=== PATIENT | female | born 1935 | race Caucasian/White ===

== ENCOUNTER 2020-02-10 16:21 | Inpatient (IN) | payer MEDICARE, SELFPAY ==
[2020-02-10 16:49] VITALS: BP 102/47; PULSE 98; PULSE 99; RESP 16; TEMP 37.1; O2SAT 98; BMI 31.8
--- NOTE | 2020-02-10 21:42 | PCM.HP.STD ---
Problem List (1) Debility Status: Acute (2) Osteoarthritis of left hip Status: Chronic (3) Body mass index (bmi) 31.0-31.9, adult Status: Chronic (4) Hypertension Status: Chronic (5) Osteopenia Status: Chronic (6) Osteoarthritis Status: Chronic (7) Restless leg syndrome Status: Chronic (8) Hearing loss Status: Chronic (9) Hyperparathyroidism Status: Acute (10) Tobacco abuse Status: Acute History of Present Illness Date of Admission: 02/10/20 Chief Complaint: Here for rehabilitation, strengthening, prior to discharge home with son. 02/08/2020 The patient is a 84 year old Female with below past medical history admitted to [facility]. Left hip pain 7 out of 10, failed conservative treatments. 02/08/2020 Dr. Roldan performed left total hip replacement. Lovenox, sequential compression devices for DVT prophylaxis. Postoperative course uncomplicated. 02/10/2020 Admit to TCU with debility, here for rehabilitation, strengthening, prior to discharge home with son. Past Medical History Past Medical History (Chronic Problems): Chronic Problems Osteoarthritis of left hip (Chronic) Body mass index (bmi) 31.0-31.9, adult (Chronic) Hypertension (Chronic) Osteopenia (Chronic) Osteoarthritis (Chronic) Restless leg syndrome (Chronic) Hearing loss (Chronic) Allergies hydroxychloroquine [From Plaquenil] Allergy (Verified 02/10/20 18:43) NEEDS FOLLOW-UP Home Medications: Ambulatory Orders Medication Instructions Recorded Ascorbic Acid [Vitamin C] 500 mg PO DAILY@0800 02/10/20 Aspirin E.C. [Ecotrin] 81 mg PO DAILY@79902/10/20 Cholecalciferol (VIT D3) [Vitamin 1,000 unit PO DAILY 02/10/20 D] Hydrocodone/Acetaminophen 1 - 2 ea PO 4X/DAY PRN PRN 02/10/20 [Hydrocodon-Acetaminophen 5-325] Lisinopril [Zestril] 20 mg PO DAILY 02/10/20 Surgical History: hysterectomy, total hip arthroplasty - Left., total knee arthroplasty, tonsillectomy, - - Parathyroidectomy, Melanoma, Carpal tunnel release, Vaginectomy. Psychiatric History: No pertinent psych hx TECHNICAL SYSTEM ANALYST History: - - Vaginectomy. Lives: With Family - Son. Smoking Status: Current every day smoker Tobacco Use: Cigarettes Alcohol: None Drugs: None - *Family History Maternal History Items: No pertinent history Paternal History Items: No pertinent history Review of Systems Constitutional: Denies: Chills, Fever, Weight Change HEENT: Denies: Head Aches, Sinus Congestion, Sinus Drainage Cardiovascular: Denies: Chest Pain, Palpitations Respiratory: Denies: Cough, Shortness of breath at rest, Sputum production Gastrointestinal: Denies: Abdominal Pain, Nausea, Vomiting Genitourinary: Denies: Dysuria Musculoskeletal: Denies: Joint Pain, Joint Tenderness Skin: Denies: Rash, Wounds Neurological: Denies: Numbness, Tingling, Focal weakness Psychiatric: Denies: Anxiety, Depression, Homicidal Ideations, Suicidal Ideations Hematologic/ Lymphatic: Denies: Easy Bruising, Easy Bleeding VTE Information - Inpt Only VTE Present on Admission: No VTE Mechan Device Prophylaxis: Knee High KADE Hose VTE Pharm Prophylaxis ordered?: Yes Patient Problems: Active and Suspected Problems Debility (Acute) Hyperparathyroidism (Acute) Tobacco abuse (Acute) - Physical Exam Vitals/I&O's: Vital Signs Temp Pulse Resp BP Pulse Ox 98.7 F 98 16 102/47 L 98 02/10/20 16:49 02/10/20 16:49 02/10/20 16:49 02/10/20 16:49 02/10/20 16:49 Oxygen Delivery Method Room Air Weight: 76.374 kg Body Mass Index (BMI) 31.8 Intake and Output for Last 24 Hours 02/08/20 02/09/20 02/10/20 23:59 23:59 23:59 Intake Total 360 / 360 Balance 360 / 360 General: Alert, Oriented x3, Cooperative HEENT: Atraumatic, PERRLA, EOMI, Normocephalic Neck: Supple, No JVD, Negative Carotid Bruits Lungs: Clear to auscultation, Normal air movement Cardiovascular: Regular rate, No murmurs Abdomen: Bowel Sounds Present, Soft, Non Tender Extremities: No edema, Capillary Refill Less than 3 Seconds Skin: No rashes, No breakdown Musculoskeletal: No Tenderness to Palpation of Joints or Extremities Neurological: Cranial nerves II-XII grossly intact Psych/Mental Status: Normal Affect, Appropriate Laboratory Results 02/10/20 21:05: COVID-19 (IDA) Pending Current Medications Hydrocodone Bitart/Acetaminophen ([place] 5mg-325mg) 1 - 2 tablet PO Q6H PRN PRN PRN Reason: Pain Score 4-10/10 Ascorbic Acid (Vitamin C) 500 mg PO DAILY@0800 [facility] Aspirin (Ecotrin) 81 mg PO DAILY@0800 [facility] Bisacodyl (Dulcolax) 10 mg PO DAILY PRN PRN Reason: Constipation Cholecalciferol (Vitamin D (25mcg)) 1,000 unit PO DAILY [facility] Enoxaparin Sodium (Lovenox) 40 mg SC DAILY@0600 NESSA Stop: 02/23/20 06:01 Lisinopril (Zestril) 20 mg PO DAILY [facility] Polyethylene Glycol (Miralax) 17 gm PO DAILY [facility] Pyridoxine HCl (Vitamin B-6) 100 mg PO DAILY@0800 [facility] Senna/Docusate Sodium (Senokot-S, Laeh-Colace) 2 tablet PO BID [facility] Tuberculin PPD (Tubersol, Aplisol, Ppd) 5 tu ID X1 ONE Stop: 02/11/20 10:01 Tuberculin PPD (Tubersol, Aplisol, Ppd) 5 tu ID X1 ONE Stop: 02/18/20 10:01 Assessment/Plan All Active Problems Debility (Acute) Hyperparathyroidism (Acute) Tobacco abuse (Acute) 84 year old female with below past medical history hospitalized for left total hip replacement 02/08/[address] Roldan, admitted to TCU with debility, here for rehabilitation, strengthening, prior to discharge home with son. Debility - PT/OT. Pain - Tylenol 1000MG Q6H PRN pain (1-3), Oxycodone 2.5MG Q4H PRN pain (4-10). Bowel - Miralax 17GM daily, Senna/colace 2 tablets BID, Dulcolax 10MG daily PRN. Adult immunization - Administer Prevnar 13, Pneumovax 23, Fluzone as appropriate. DVT prophylaxis - Lovenox 40MG SC daily thru 02/23/2020. Vitamin C deficiency - Vitamin C 500MG daily. CV prophylaxis - Aspirin 81MG daily. Vitamin D deficiency - Vitamin D3 1000IU daily. Hypertension - Lisinopril 20MG daily. Vitamin B-6 deficiency - Vitamin B-6 100MG daily.
[2020-02-10 22:40] LABS: Probe Check PASS; Specimen Processing Control PASS
[2020-02-11] MEDS: Lisinopril 20 MG Tablet PO (06:24)
[2020-02-11] MEDS: Enoxaparin 40 MG/0.4 ML Syringe SC (06:24)
[2020-02-11] MEDS: Polyethylene Glycol 3350 17 GM PACKET PO (06:24)
[2020-02-11 06:31] VITALS: BP 133/66; PULSE 94; RESP 17; TEMP 36.6; O2SAT 98
[2020-02-11 07:59] LABS: Absolute Lymphocyte Count 1.23 X10^3/uL (0.83-4.51); Absolute Neutrophil Count 7.3 X10^3/uL (2.0-7.7); Basophil# 0.04 X10^3/uL; Basophil% 0.4 % (0-1); Eosinophil# 0.28 X10^3/uL; Eosinophils% 2.8 % (0-5); Hematocrit 24.1 % (37-47); Hemoglobin 7.6 g/dL (12.0-15.0); Lymphocyte # 1.23 X10^3/ul (4.0); Lymphocyte % 12.3 % (19-41); Mean Corp Hgb Conc 31.5 g/dL (32-36); Mean Corpuscular Hgb 30.6 pg (27.0-32.0); Mean Corpuscular Volume 97.2 fL (81-99); Mean Platelet Vol. 9.2 fl (6.2-12.0); Monocyte# 0.91 X10^3/uL; Monocyte% 9.1 % (0-10); NRBC Flagged by Analyzer 0 % (0-5); Neutrophil # 7.27 X10^3/uL (2.7-7.7); Neutrophil % 72.9 % (47-70); Platelet Count 279 K/mm3 (150-450); RBC Distribution Width CV 15.6 % (11.6-14.6); RBC Distribution Width SD 55.7 fl (35.1-43.9); Red Blood Count 2.48 M/mm3 (4.2-5.4)
[2020-02-11 08:13] LABS: Anion Gap 6 (5-15); BUN 14 mg/dL (7-18); BUN/Creat Ratio 24.7 RATIO (10-20); Calcium,Total 8.3 mg/dL (8.5-10.1); Chloride 106 mmol/L (98-107); Creatinine, Serum 0.57 mg/dL (0.55-1.02); EST Glomerular Filtration Rate 108 mL/min (>60); Est Glom Filt Rate - Afr Amer 130 mL/min (>60); Estimated Creatinine Clearance 31.04 ml/min; Glucose 91 mg/dL (74-106); Potassium 3.9 mmol/L (3.5-5.1); Sodium Level 138 mmol/L (136-145)
[2020-02-11] MEDS: Pyridoxine HCl 100 MG Tablet PO (08:21)
[2020-02-11] MEDS: Ascorbic Acid 500 MG Tablet PO (08:21)
[2020-02-11] MEDS: Aspirin E.C. 81 MG Tablet PO (08:21)
[2020-02-11 08:33] VITALS: PULSE 98; RESP 16; O2SAT 97
[2020-02-11] MEDS: Senna/Docusate Sodium 1 Tablet 2 TABLET PO ×2 (08:42→17:15)
[2020-02-11] MEDS: Iron Polysaccharide Complex 150 MG CAPSULE PO (11:35)
[2020-02-11] MEDS: Tuberculin,Purif.prot.deriv. 50 TU/ML Vial 5 ML ID (11:35)
[2020-02-11 14:32] VITALS: BP 113/48; PULSE 88; RESP 16; TEMP 37.2; O2SAT 97
[2020-02-12] MEDS: Polyethylene Glycol 3350 17 GM PACKET PO (06:45)
[2020-02-12] MEDS: Enoxaparin 40 MG/0.4 ML Syringe SC (06:45)
[2020-02-12] MEDS: Lisinopril 20 MG Tablet PO (06:45)
[2020-02-12 06:46] VITALS: BP 123/79; PULSE 90; RESP 17; TEMP 36.2; O2SAT 98
[2020-02-12] MEDS: Iron Polysaccharide Complex 150 MG CAPSULE PO (08:26)
[2020-02-12] MEDS: Aspirin E.C. 81 MG Tablet PO (08:26)
[2020-02-12] MEDS: Pyridoxine HCl 100 MG Tablet PO (08:26)
[2020-02-12] MEDS: Ascorbic Acid 500 MG Tablet PO (08:26)
[2020-02-12] MEDS: Senna/Docusate Sodium 1 Tablet 2 TABLET PO ×2 (08:28→17:24)
[2020-02-12 15:04] VITALS: BP 123/82; PULSE 96; RESP 16; TEMP 36.9; O2SAT 96
[2020-02-13] MEDS: Lisinopril 20 MG Tablet PO (05:38)
[2020-02-13] MEDS: Polyethylene Glycol 3350 17 GM PACKET PO (05:38)
[2020-02-13] MEDS: Enoxaparin 40 MG/0.4 ML Syringe SC (05:38)
[2020-02-13] MEDS: Senna/Docusate Sodium 1 Tablet 2 TABLET PO ×2 (05:38→18:25)
[2020-02-13 05:39] LABS: Hematocrit 24.6 % (37-47); Hemoglobin 7.8 g/dL (12.0-15.0)
[2020-02-13 05:51] VITALS: BP 129/80; PULSE 97; RESP 18; TEMP 36.6; O2SAT 97
[2020-02-13] MEDS: Iron Polysaccharide Complex 150 MG CAPSULE PO (08:23)
[2020-02-13] MEDS: Pyridoxine HCl 100 MG Tablet PO (08:23)
[2020-02-13] MEDS: Aspirin E.C. 81 MG Tablet PO (08:23)
[2020-02-13] MEDS: Ascorbic Acid 500 MG Tablet PO (08:23)
--- NOTE | 2020-02-13 09:16 | PCM.PN.RX ---
<Bashir Velez - Last Filed: 02/13/20 09:16> Progress Note - Pharmacy Subjective: [] TCU Admission Objective: Allergies hydroxychloroquine [From Plaquenil] Allergy (Verified 02/10/20 18:43) NEEDS FOLLOW-UP Current Medications Generic Name Dose Route Start Last Admin Trade Name Freq PRN Reason Stop Dose Admin Acetaminophen 1,000 mg 02/10/20 21:53 Tylenol PO Q6H PRN PRN Pain Score 1-3/10 Ascorbic Acid 500 mg 02/11/20 08:00 02/13/20 08:23 Vitamin C PO 500 mg DAILY@0800 NESSA Administration Aspirin 81 mg 02/11/20 08:00 02/13/20 08:23 Ecotrin PO 81 mg DAILY@0800 [facility] Administration Bisacodyl 10 mg 02/10/20 16:57 Dulcolax PO DAILY PRN Constipation Cholecalciferol 1,000 unit 02/11/20 06:00 02/13/20 05:38 Vitamin D (25mcg) PO 1,000 unit DAILY NESAS Administration Enoxaparin Sodium 40 mg 02/11/20 06:00 02/13/20 05:38 Lovenox SC 02/23/20 06:01 40 mg DAILY@0600 NESSA Administration Lisinopril 20 mg 02/11/20 06:00 02/13/20 05:38 Zestril PO 20 mg DAILY [facility] Administration Oxycodone HCl 2.5 mg 02/10/20 21:53 Oxyir PO Q4H PRN PRN Pain Score 4-10/10 Polyethylene Glycol 17 gm 02/11/20 06:00 02/13/20 05:38 Miralax PO 17 gm DAILY NESSA Administration Polysaccharide Iron Complex 150 mg 02/11/20 12:00 02/13/20 08:23 Ferrex 150 PO 150 mg DAILYCM NESSA Administration Pyridoxine HCl 100 mg 02/11/20 08:00 02/13/20 08:23 Vitamin B-6 PO 100 mg DAILY@0800 [facility] Administration Senna/Docusate Sodium 2 tablet 02/10/20 18:00 02/13/20 05:38 Senokot-S, Leah-Colace PO 2 tablet BID NESSA Administration Tuberculin PPD 5 tu 02/18/20 10:00 Tubersol, Aplisol, Ppd ID 02/18/20 10:01 X1 ONE Problem List Debility (Acute) Osteoarthritis of left hip (Chronic) Body mass index (bmi) 31.0-31.9, adult (Chronic) Hypertension (Chronic) Osteopenia (Chronic) Osteoarthritis (Chronic) Restless leg syndrome (Chronic) Hearing loss (Chronic) Hyperparathyroidism (Acute) Tobacco abuse (Acute) Vital Signs Temp Pulse Resp BP Pulse Ox 97.9 F 97 18 129/80 H 97 02/13/20 05:51 02/13/20 05:51 02/13/20 05:51 02/13/20 05:51 02/13/20 05:51 Oxygen Delivery Method Room Air Weight: 76.374 kg Body Mass Index (BMI) 31.8 Sodium 138 mmol/L (136-145) 02/11/20 07:22 Potassium 3.9 mmol/L (3.5-5.1) 02/11/20 07:22 Chloride 106 mmol/L (98-107) 02/11/20 07:22 Carbon Dioxide 26.0 mmol/L (21.0-32.0) 02/11/20 07:22 Anion Gap 6 (5-15) 02/11/20 07:22 BUN 14 mg/dL (7-18) 02/11/20 07:22 Creatinine 0.57 mg/dL (0.55-1.02) 02/11/20 07:22 Est GFR (MDRD) Af Amer 130 mL/min (>60) 02/11/20 07:22 Est GFR (MDRD) Non-Af 108 mL/min (>60) 02/11/20 07:22 BUN/Creatinine Ratio 24.7 RATIO (10-20) H 02/11/20 07:22 Glucose 91 mg/dL (74-106) 02/11/20 07:22 Assessment/Plan: 1) Pain: Acetaminophen 1000mg po q6h prn for pain 1-3/10, Oxycodone 2.5mg po q4h prn for pain 4-10/10. Please continue to monitor prn usage and for signs/symptoms of increased/decreased pain. 2) Vitamin Deficiencies: Ascorbic Acid 500mg po daily at 0800, Pyridoxine 100mg po daily at 0800, Cholecalciferol 25mcg (1000 units) po daily. Please consider a Vitamin D level while the pt is taking Cholecalciferol. Thanks 3) Hypertension: Lisinopril 20mg po daily. Pt's K+ is 3.9, SrCr is 0.59, BUN is 14. Please continue to monitor. Pt's average BP is 120.5/67. Please continue to monitor. 4) DVT Prophylaxis: Enoxaparin 40mg subq daily through 02/23/2020. Pt's SrCr is 0.57, calculated CrCl adjusted for age is 42.32, and Plts are 279. Please continue to monitor lab work. Please continue to monitor for signs/symptoms of clot/bleeding. *5) CV Prophylaxis: Aspirin 81mg po daily. Please continue to monitor for signs/symptoms of bleeding/easy bruising. Pt is also on Enoxaparin which represents a potential duplication in therapy. Please re-evaluate continued need of Aspirin 81mg while pt is on Enoxaparin. Thanks *6) Under the problem list pt has Restless Leg Syndrome and Hyperparathyroidism listed as chronic conditions. Pt is not taking any medications for these conditions. Please consider updating chronic conditions under the Problem List. Thanks Psychotropic Medications: none Unnecessary Medications: none Bowel Regimen: Bisacodyl 10mg po daily prn for constipation, Miralax 17gm po daily, Senna/Docusate 2 tablets po bid. Please continue to monitor prn usage and for signs/symptoms of constipation/diarrhea. Date of Note:: 02/13/20 - Provider Comments Provider responsibility: Provider responsible to enter orders to implement recommendations <Marquez Bond Chi - Last Filed: 02/13/20 12:12> Progress Note - Pharmacy Subjective: [] Objective: Allergies hydroxychloroquine [From Plaquenil] Allergy (Verified 02/10/20 18:43) NEEDS FOLLOW-UP Current Medications Generic Name Dose Route Start Last Admin Trade Name Freq PRN Reason Stop Dose Admin Acetaminophen 1,000 mg 02/10/20 21:53 Tylenol PO Q6H PRN PRN Pain Score 1-3/10 Ascorbic Acid 500 mg 02/11/20 08:00 02/13/20 08:23 Vitamin C PO 500 mg DAILY@0800 [facility] Administration Aspirin 81 mg 02/11/20 08:00 02/13/20 08:23 Ecotrin PO 81 mg DAILY@0800 [facility] Administration Bisacodyl 10 mg 02/10/20 16:57 Dulcolax PO DAILY PRN Constipation Cholecalciferol 1,000 unit 02/11/20 06:00 02/13/20 05:38 Vitamin D (25mcg) PO 1,000 unit DAILY [facility]ES[facility] Administration Enoxaparin Sodium 40 mg 02/11/20 06:00 02/13/20 05:38 Lovenox SC 02/23/20 06:01 40 mg DAILY@0600 [facility] Administration Lisinopril 20 mg 02/11/20 06:00 02/13/20 05:38 Zestril PO 20 mg DAILY [facility] Administration Oxycodone HCl 2.5 mg 02/10/20 21:53 Oxyir PO Q4H PRN PRN Pain Score 4-10/10 Polyethylene Glycol 17 gm 02/11/20 06:00 02/13/20 05:38 Miralax PO 17 gm DAILY [facility] Administration Polysaccharide Iron Complex 150 mg 02/11/20 12:00 02/13/20 08:23 Ferrex 150 PO 150 mg DAILYCM [facility] Administration Pyridoxine HCl 100 mg 02/11/20 08:00 02/13/20 08:23 Vitamin B-6 PO 100 mg DAILY@0800 [facility] Administration Senna/Docusate Sodium 2 tablet 02/10/20 18:00 02/13/20 05:38 Senokot-S, Leah-Colace PO 2 tablet BID [facility] Administration Tuberculin PPD 5 tu 02/18/20 10:00 Tubersol, Aplisol, Ppd ID 02/18/20 10:01 X1 ONE Problem List Debility (Acute) Osteoarthritis of left hip (Chronic) Body mass index (bmi) 31.0-31.9, adult (Chronic) Hypertension (Chronic) Osteopenia (Chronic) Osteoarthritis (Chronic) Restless leg syndrome (Chronic) Hearing loss (Chronic) Hyperparathyroidism (Acute) Tobacco abuse (Acute) Vital Signs Temp Pulse Resp BP Pulse Ox 97.9 F 97 18 129/80 H 97 02/13/20 05:51 02/13/20 05:51 02/13/20 05:51 02/13/20 05:51 02/13/20 05:51 Oxygen Delivery Method Room Air Weight: 76.374 kg Body Mass Index (BMI) 31.8 Sodium 138 mmol/L (136-145) 02/11/20 07:22 Potassium 3.9 mmol/L (3.5-5.1) 02/11/20 07:22 Chloride 106 mmol/L (98-107) 02/11/20 07:22 Carbon Dioxide 26.0 mmol/L (21.0-32.0) 02/11/20 07:22 Anion Gap 6 (5-15) 02/11/20 07:22 BUN 14 mg/dL (7-18) 02/11/20 07:22 Creatinine 0.57 mg/dL (0.55-1.02) 02/11/20 07:22 Est GFR (MDRD) Af Amer 130 mL/min (>60) 02/11/20 07:22 Est GFR (MDRD) Non-Af 108 mL/min (>60) 02/11/20 07:22 BUN/Creatinine Ratio 24.7 RATIO (10-20) H 02/11/20 07:22 Glucose 91 mg/dL (74-106) 02/11/20 07:22 Assessment/Plan: Psychotropic Medications: Unnecessary Medications: Bowel Regimen: - Provider Comments Provider responsibility: Provider responsible to enter orders to implement recommendations Provider Comments to Recommendations by Pharmacy: Agree
[2020-02-13 13:47] VITALS: BP 150/72; PULSE 102; RESP 16; TEMP 36.7; O2SAT 99
--- NOTE | 2020-02-13 14:31 | CASEMGMT ---
Social Work Discussed code status with pt. Pt confirmed full code. MOLST form completed and placed in chart. Pt states she lives with her son, Adalberto whom works from home. Other son, Jaydon, is HCPOA and to be contacted for daily updates and care plan meeting, whom lives with Jacquelin in [place], [place]. Pt has a dtr, Viviane Hernandez, who can be provided updates if she calls, whom lives in [place], [place]. Pt stated Jaydon will be in contact with Adalberto to relay any information. Sons both hired aides from [employer] 5 days/wk for 3hrs to assist pt with personal care, meals and housekeeping. SW will restart those services at [place]. Explained insurance with [employer] 02/13 and continued stay is not guaranteed. Will continue to follow. SANDEE Maldonado
[2020-02-14 03:51] VITALS: BP 135/50; PULSE 87; RESP 16; TEMP 36.9; O2SAT 95
[2020-02-14] MEDS: Lisinopril 20 MG Tablet PO (06:19)
[2020-02-14] MEDS: Senna/Docusate Sodium 1 Tablet 2 TABLET PO ×2 (06:19→16:05)
[2020-02-14] MEDS: Enoxaparin 40 MG/0.4 ML Syringe SC (06:19)
[2020-02-14] MEDS: Polyethylene Glycol 3350 17 GM PACKET PO (06:22)
[2020-02-14] MEDS: Aspirin E.C. 81 MG Tablet PO (07:52)
[2020-02-14] MEDS: Ascorbic Acid 500 MG Tablet PO (07:52)
[2020-02-14] MEDS: Pyridoxine HCl 100 MG Tablet PO (07:52)
[2020-02-14] MEDS: Iron Polysaccharide Complex 150 MG CAPSULE PO (07:52)
[2020-02-14 14:02] VITALS: BP 92/51; PULSE 71; RESP 16; TEMP 36.9; O2SAT 97
[2020-02-14] MEDS: MELATONIN 10 MG TABLET PO (21:05)
[2020-02-14] MEDS: Pramipexole Di-HCl 0.5 MG Tablet PO (22:31)
--- NOTE | 2020-02-14 22:36 | NURSING ---
Patient complaining of legs feeling restless and that they keep jumping. Patient states that she is unable to get to sleep because of this. Dr. Bond notified, new orders given.
[2020-02-15 04:35] VITALS: BP 151/64; PULSE 88; RESP 16; TEMP 36.8; O2SAT 97
[2020-02-15] MEDS: Bisacodyl 5 MG Tablet 10 MG PO (04:39)
[2020-02-15] MEDS: Senna/Docusate Sodium 1 Tablet 2 TABLET PO ×2 (04:40→16:21)
[2020-02-15] MEDS: Acetaminophen 500 MG Tablet 1000 MG PO ×2 (04:40→16:59)
[2020-02-15] MEDS: Enoxaparin 40 MG/0.4 ML Syringe SC (04:41)
[2020-02-15] MEDS: Lisinopril 20 MG Tablet PO (04:41)
[2020-02-15] MEDS: Polyethylene Glycol 3350 17 GM PACKET PO (04:52)
[2020-02-15 05:45] LABS: Hematocrit 23.8 % (37-47); Hemoglobin 7.4 g/dL (12.0-15.0)
[2020-02-15] MEDS: Aspirin E.C. 81 MG Tablet PO (08:14)
[2020-02-15] MEDS: Ascorbic Acid 500 MG Tablet PO (08:14)
[2020-02-15] MEDS: Pyridoxine HCl 100 MG Tablet PO (08:14)
[2020-02-15] MEDS: Iron Polysaccharide Complex 150 MG CAPSULE PO (08:14)
--- NOTE | 2020-02-15 08:22 | NURSING ---
pt to get 2 units blood tomorrow. type & cross today. Pt updated. hgb 7.4
--- NOTE | 2020-02-15 13:22 | CASEMGMT ---
Social Work IDT met with patient, son and DIL via conference call for care plan meeting. Discussed patient's progress in therapy. Pt is mod assist for supine to sit, CGA to min assist for transfers, waling 40 ft with FWW at CGA, working on ROM with shoulders and strengthening exercises. Pt is max assist for LE dressing and bathing, mod assist for UE dressing and bathing and dependent for toileting tasks. Pt is on a regular diet, good intake, weight is table, Pt is out of room isolation 02/23 and following hip precautions. Explained [employer] insurance with [employer] 02/13 and continued stay is not guaranteed. Will restart aides through [facility] at [place]. Will continue to follow. Joana Forte, SANDEE ACEVEDOW
[2020-02-15 14:19] VITALS: BP 118/52; PULSE 87; RESP 16; TEMP 36.9; O2SAT 95
[2020-02-15] MEDS: oxyCODONE 5 MG Tablet 2.5 MG PO ×2 (16:58→21:27)
--- NOTE | 2020-02-15 19:03 | NURSING ---
This nurse was taking resident from bathroom to recliner when resident's knees buckled. This nurse lowered resident to floor. No injury. BP 122/60 Pulse 80 Resp. 18 Temp 98.3 oral. Time occurred 1715. Dr. Bond notified at 1730 and no new orders given at this time. Resident's POA notified of resident status and appreciative of call. '
[2020-02-15 21:00] VITALS: O2SAT 98
[2020-02-15] MEDS: MELATONIN 10 MG TABLET PO (21:19)
[2020-02-15] MEDS: Pramipexole Di-HCl 0.5 MG Tablet PO (21:19)
[2020-02-16] MEDS: Enoxaparin 40 MG/0.4 ML Syringe SC (06:05)
[2020-02-16] MEDS: Senna/Docusate Sodium 1 Tablet 2 TABLET PO ×2 (06:05→17:13)
[2020-02-16] MEDS: Lisinopril 20 MG Tablet PO (06:06)
[2020-02-16] MEDS: Acetaminophen 500 MG Tablet 1000 MG PO ×2 (06:10→15:42)
[2020-02-16 06:17] VITALS: BP 114/69; PULSE 92; RESP 17; TEMP 36.9; O2SAT 97
[2020-02-16] MEDS: Aspirin E.C. 81 MG Tablet PO (08:01)
[2020-02-16] MEDS: Iron Polysaccharide Complex 150 MG CAPSULE PO (08:01)
[2020-02-16] MEDS: Ascorbic Acid 500 MG Tablet PO (08:02)
[2020-02-16] MEDS: oxyCODONE 5 MG Tablet 2.5 MG PO ×2 (08:03→15:43)
--- NOTE | 2020-02-16 14:18 | MDS.RN ---
Resident off floor for blood transfusion, will completed staff assessment for pain for homar 02/17/20
--- NOTE | 2020-02-16 14:44 | NURSING ---
Pt returned from Infusion center she received 2 units of prbc and 20 mg iv lasix in between doses.
[2020-02-16 15:01] VITALS: BP 102/68; PULSE 84; RESP 18; TEMP 37; O2SAT 98
[2020-02-16] MEDS: Pramipexole Di-HCl 0.5 MG Tablet PO (20:11)
[2020-02-16] MEDS: MELATONIN 10 MG TABLET PO (20:11)
[2020-02-17 06:27] VITALS: BP 117/65; PULSE 84; RESP 16; TEMP 36.9; O2SAT 96
[2020-02-17] MEDS: Lisinopril 20 MG Tablet PO (06:30)
[2020-02-17] MEDS: Senna/Docusate Sodium 1 Tablet 2 TABLET PO (06:30)
[2020-02-17] MEDS: Enoxaparin 40 MG/0.4 ML Syringe SC (06:30)
[2020-02-17] MEDS: Polyethylene Glycol 3350 17 GM PACKET PO (06:36)
[2020-02-17] MEDS: Ascorbic Acid 500 MG Tablet PO (08:37)
[2020-02-17] MEDS: Iron Polysaccharide Complex 150 MG CAPSULE PO (08:37)
[2020-02-17] MEDS: Pyridoxine HCl 100 MG Tablet PO (08:37)
[2020-02-17] MEDS: Aspirin E.C. 81 MG Tablet PO (08:37)
[2020-02-17 09:01] LABS: Hematocrit 31.3 % (37-47); Hemoglobin 10.3 g/dL (12.0-15.0)
[2020-02-17 11:23] VITALS: RESP 18
[2020-02-17 14:16] VITALS: BP 120/58; PULSE 90; RESP 18; TEMP 36.1
[2020-02-17] MEDS: MELATONIN 10 MG TABLET PO (21:23)
[2020-02-17] MEDS: Pramipexole Di-HCl 0.5 MG Tablet PO (21:24)
[2020-02-17] MEDS: oxyCODONE 5 MG Tablet 2.5 MG PO (21:44)
--- NOTE | 2020-02-17 21:50 | NURSING ---
Per patient she likes to sleep with all the room lights off and the door to the hallway open to allow light from the moser in, like a night light.
[2020-02-18 02:59] VITALS: BP 100/52; PULSE 83; RESP 15; TEMP 37.1; O2SAT 96
[2020-02-18] MEDS: Lisinopril 20 MG Tablet PO (06:05)
[2020-02-18] MEDS: Enoxaparin 40 MG/0.4 ML Syringe SC (06:05)
[2020-02-18] MEDS: Senna/Docusate Sodium 1 Tablet 2 TABLET PO ×2 (06:05→17:59)
[2020-02-18] MEDS: Polyethylene Glycol 3350 17 GM PACKET PO (06:05)
[2020-02-18 07:58] LABS: Hematocrit 26.2 % (37-47); Hemoglobin 8.3 g/dL (12.0-15.0); Mean Corp Hgb Conc 31.7 g/dL (32-36); Mean Corpuscular Hgb 29.7 pg (27.0-32.0); Mean Corpuscular Volume 93.9 fL (81-99); Mean Platelet Vol. 8.9 fl (6.2-12.0); POSITIVE COUNT YES; POSITIVE MORPHOLOGY YES; Platelet Count 349 K/mm3 (150-450); RBC Distribution Width CV 16.1 % (11.6-14.6); RBC Distribution Width SD 53.5 fl (35.1-43.9); Red Blood Count 2.79 M/mm3 (4.2-5.4); White Blood Count 10.5 K/mm3 (4.4-11.0)
[2020-02-18 08:01] LABS: Differential Indicated MANUAL DIFF
[2020-02-18 08:09] LABS: Anion Gap 6 (5-15); BUN 13 mg/dL (7-18); BUN/Creat Ratio 23.1 RATIO (10-20); Chloride 97 mmol/L (98-107); Creatinine, Serum 0.56 mg/dL (0.55-1.02); EST Glomerular Filtration Rate 109 mL/min (>60); Est Glom Filt Rate - Afr Amer 131 mL/min (>60); Estimated Creatinine Clearance 31.04 ml/min; Glucose 99 mg/dL (74-106); Potassium 4.1 mmol/L (3.5-5.1); Sodium Level 132 mmol/L (136-145)
[2020-02-18] MEDS: Pyridoxine HCl 100 MG Tablet PO (08:15)
[2020-02-18] MEDS: Iron Polysaccharide Complex 150 MG CAPSULE PO (08:15)
[2020-02-18] MEDS: Ascorbic Acid 500 MG Tablet PO (08:15)
[2020-02-18] MEDS: Aspirin E.C. 81 MG Tablet PO (08:16)
[2020-02-18 08:31] LABS: Eosinophil 7 % (0-5); Lymphocyte 15 % (19-41); Metamyelocyte 11 % (0-1); Neutrophil-Band 2 % (0-5); Neutrophil-Segmented 65 % (47-70); Platelet Estimate ADEQUATE (ADEQ); Red Cell Morphology NORM C+C NORMAL (NORM C&C); Total Cells Counted 100 (MANUAL DIFF)
[2020-02-18 10:57] VITALS: PULSE 90; RESP 18
[2020-02-18] MEDS: Tuberculin,Purif.prot.deriv. 50 TU/ML Vial 5 ML ID (11:46)
[2020-02-18] MEDS: oxyCODONE 5 MG Tablet 2.5 MG PO (11:55)
[2020-02-18 14:23] VITALS: BP 110/63; PULSE 81; RESP 16; TEMP 36.8; O2SAT 96
[2020-02-18] MEDS: Pramipexole Di-HCl 0.5 MG Tablet PO (21:40)
[2020-02-18] MEDS: MELATONIN 10 MG TABLET PO (21:40)
[2020-02-19 06:08] VITALS: BP 143/64; PULSE 82; RESP 16; TEMP 36.9; O2SAT 96
[2020-02-19] MEDS: Senna/Docusate Sodium 1 Tablet 2 TABLET PO (06:11)
[2020-02-19] MEDS: Lisinopril 20 MG Tablet PO (06:11)
[2020-02-19] MEDS: Polyethylene Glycol 3350 17 GM PACKET PO (06:13)
[2020-02-19] MEDS: Iron Polysaccharide Complex 150 MG CAPSULE PO (08:02)
[2020-02-19] MEDS: Pyridoxine HCl 100 MG Tablet PO (08:02)
--- NOTE | 2020-02-19 08:07 | NURSING ---
pt refusing Robe ott, stating they dig into my legs pt agreed to wear brissa wraps.
[2020-02-19 16:00] VITALS: BP 110/41; PULSE 88; RESP 18; TEMP 36.7; O2SAT 99
[2020-02-19] MEDS: MELATONIN 10 MG TABLET PO (20:15)
[2020-02-19] MEDS: oxyCODONE 5 MG Tablet 2.5 MG PO (20:16)
[2020-02-19] MEDS: Pramipexole Di-HCl 0.5 MG Tablet PO (20:16)
[2020-02-20 06:05] VITALS: BP 114/40; PULSE 77; RESP 16; TEMP 36.8; O2SAT 95
[2020-02-20] MEDS: Polyethylene Glycol 3350 17 GM PACKET PO (06:06)
[2020-02-20] MEDS: Senna/Docusate Sodium 1 Tablet 2 TABLET PO ×2 (06:07→17:29)
[2020-02-20] MEDS: Lisinopril 20 MG Tablet PO (06:08)
[2020-02-20 06:12] LABS: Hematocrit 25.8 % (37-47); Hemoglobin 8.2 g/dL (12.0-15.0)
[2020-02-20] MEDS: Iron Polysaccharide Complex 150 MG CAPSULE PO (08:36)
[2020-02-20] MEDS: Pyridoxine HCl 100 MG Tablet PO (08:36)
[2020-02-20 10:34] VITALS: PULSE 83; RESP 16; O2SAT 97
[2020-02-20 12:15] LABS: Pathologist Review Reviewed
--- NOTE | 2020-02-20 14:07 | MDS.RN ---
Information for the mds was obtained from review of the clinical record, interview of resident, staff, and direct observation of resident's care.
[2020-02-20 14:30] VITALS: BP 106/62; PULSE 95; RESP 16; TEMP 36.6; O2SAT 98
[2020-02-20] MEDS: MELATONIN 10 MG TABLET PO (20:53)
[2020-02-20] MEDS: Pramipexole Di-HCl 0.5 MG Tablet PO (20:54)
[2020-02-21 06:22] VITALS: BP 128/64; PULSE 82; RESP 16; TEMP 37; O2SAT 98
[2020-02-21] MEDS: Lisinopril 20 MG Tablet PO (06:25)
[2020-02-21] MEDS: Polyethylene Glycol 3350 17 GM PACKET PO (06:25)
[2020-02-21] MEDS: Senna/Docusate Sodium 1 Tablet 2 TABLET PO ×2 (06:25→16:01)
[2020-02-21] MEDS: Pyridoxine HCl 100 MG Tablet PO (08:20)
[2020-02-21] MEDS: Iron Polysaccharide Complex 150 MG CAPSULE PO (08:20)
[2020-02-21 14:41] VITALS: BP 122/70; PULSE 84; RESP 18; TEMP 37.1; O2SAT 98
[2020-02-21] MEDS: MELATONIN 10 MG TABLET PO (22:09)
[2020-02-21] MEDS: Pramipexole Di-HCl 0.5 MG Tablet PO (22:10)
[2020-02-22 05:53] LABS: Hematocrit 26.7 % (37-47); Hemoglobin 8.5 g/dL (12.0-15.0)
[2020-02-22] MEDS: Lisinopril 20 MG Tablet PO (06:24)
[2020-02-22 06:29] VITALS: BP 120/74; PULSE 90; RESP 18; TEMP 36.4; O2SAT 97
[2020-02-22] MEDS: Pyridoxine HCl 100 MG Tablet PO (08:27)
[2020-02-22] MEDS: Iron Polysaccharide Complex 150 MG CAPSULE PO (08:27)
[2020-02-22 11:19] VITALS: PULSE 80; RESP 18; O2SAT 96
[2020-02-22 12:49] VITALS: BP 126/72; PULSE 80; RESP 18; TEMP 37; O2SAT 96
[2020-02-22] MEDS: MELATONIN 10 MG TABLET PO (21:18)
[2020-02-22] MEDS: Pramipexole Di-HCl 0.5 MG Tablet PO (21:18)
[2020-02-23] MEDS: Iron Polysaccharide Complex 150 MG CAPSULE PO (06:33)
[2020-02-23] MEDS: Lisinopril 20 MG Tablet PO (06:33)
[2020-02-23] MEDS: Pyridoxine HCl 100 MG Tablet PO (06:34)
[2020-02-23 06:36] VITALS: BP 103/58; PULSE 80; RESP 16; TEMP 36.6; O2SAT 97
[2020-02-23 13:05] VITALS: BP 124/58; PULSE 94; RESP 18; TEMP 37; O2SAT 97
[2020-02-23] MEDS: Pramipexole Di-HCl 0.5 MG Tablet PO (21:59)
[2020-02-23] MEDS: MELATONIN 10 MG TABLET PO (21:59)
[2020-02-24 05:43] VITALS: BP 114/59; PULSE 83; RESP 16; TEMP 36.9; O2SAT 98
[2020-02-24] MEDS: Lisinopril 20 MG Tablet PO (05:44)
[2020-02-24] MEDS: Pyridoxine HCl 100 MG Tablet PO (10:17)
[2020-02-24] MEDS: Iron Polysaccharide Complex 150 MG CAPSULE PO (10:17)
[2020-02-24 15:22] VITALS: PULSE 72; RESP 18; O2SAT 96
[2020-02-24 15:34] VITALS: BP 134/70; PULSE 72; RESP 18; TEMP 37.1; O2SAT 96
[2020-02-24] MEDS: Pramipexole Di-HCl 0.5 MG Tablet PO (21:22)
[2020-02-24] MEDS: MELATONIN 10 MG TABLET PO (21:22)
[2020-02-25 06:47] VITALS: BP 141/67; PULSE 81; RESP 16; TEMP 36.9; O2SAT 98
[2020-02-25] MEDS: Lisinopril 20 MG Tablet PO (06:50)
[2020-02-25 07:59] LABS: Absolute Lymphocyte Count 1.85 X10^3/uL (0.83-4.51); Absolute Neutrophil Count 5.1 X10^3/uL (2.0-7.7); Basophil# 0.11 X10^3/uL; Basophil% 1.3 % (0-1); Hematocrit 32.3 % (37-47); Lymphocyte # 1.85 X10^3/ul (4.0); Lymphocyte % 21.1 % (19-41); Mean Corpuscular Hgb 30.4 pg (27.0-32.0); Mean Corpuscular Volume 98.2 fL (81-99); Mean Platelet Vol. 8.5 fl (6.2-12.0); Monocyte# 0.68 X10^3/uL; Monocyte% 7.8 % (0-10); NRBC Flagged by Analyzer 0 % (0-5); Neutrophil # 5.11 X10^3/uL (2.7-7.7); Neutrophil % 58.2 % (47-70); Platelet Count 416 K/mm3 (150-450); RBC Distribution Width CV 16.6 % (11.6-14.6); RBC Distribution Width SD 58.4 fl (35.1-43.9); Red Blood Count 3.29 M/mm3 (4.2-5.4); White Blood Count 8.8 K/mm3 (4.4-11.0)
[2020-02-25 08:24] LABS: Anion Gap 5 (5-15); BUN 13 mg/dL (7-18); Calcium,Total 8.4 mg/dL (8.5-10.1); Chloride 102 mmol/L (98-107); Creatinine, Serum 0.62 mg/dL (0.55-1.02); EST Glomerular Filtration Rate 97 mL/min (>60); Est Glom Filt Rate - Afr Amer 118 mL/min (>60); Estimated Creatinine Clearance 31.04 ml/min; Glucose 96 mg/dL (74-106); Potassium 4.5 mmol/L (3.5-5.1); Sodium Level 132 mmol/L (136-145)
[2020-02-25] MEDS: Pyridoxine HCl 100 MG Tablet PO (09:33)
[2020-02-25] MEDS: Iron Polysaccharide Complex 150 MG CAPSULE PO (09:33)
[2020-02-25 16:00] VITALS: BP 138/72; PULSE 92; RESP 18; TEMP 37.5; O2SAT 99
[2020-02-25 17:41] VITALS: TEMP 36.9
--- NOTE | 2020-02-25 17:48 | NURSING ---
Notified Dr. Bond of drainage from left hip incision, received order for culture and gram stain.
[2020-02-25] MEDS: Pramipexole Di-HCl 0.5 MG Tablet PO (20:17)
[2020-02-25] MEDS: MELATONIN 10 MG TABLET PO (20:17)
[2020-02-26 05:16] VITALS: BP 135/68; PULSE 79; RESP 18; TEMP 36.7; O2SAT 95
[2020-02-26] MEDS: Lisinopril 20 MG Tablet PO (05:24)
[2020-02-26] MEDS: Polyethylene Glycol 3350 17 GM PACKET PO (05:32)
[2020-02-26] MEDS: Pyridoxine HCl 100 MG Tablet PO (08:28)
[2020-02-26] MEDS: Iron Polysaccharide Complex 150 MG CAPSULE PO (08:28)
[2020-02-26 10:00] VITALS: PULSE 94; RESP 18; O2SAT 96
--- NOTE | 2020-02-26 13:48 | NURSING ---
Update provided to family.
[2020-02-26 14:23] VITALS: BP 138/64; PULSE 94; RESP 18; TEMP 36.9; O2SAT 96
[2020-02-26] MEDS: Cephalexin 500 MG Capsule PO (19:51)
[2020-02-26] MEDS: MELATONIN 10 MG TABLET PO (21:12)
[2020-02-26] MEDS: Pramipexole Di-HCl 0.5 MG Tablet PO (21:13)
[2020-02-27 04:12] VITALS: BP 115/51; PULSE 80; RESP 16; TEMP 36.7; O2SAT 96
[2020-02-27] MEDS: Cephalexin 500 MG Capsule PO ×2 (04:16→14:28)
[2020-02-27] MEDS: Lisinopril 20 MG Tablet PO (04:16)
[2020-02-27] MEDS: Polyethylene Glycol 3350 17 GM PACKET PO (04:17)
[2020-02-27] MEDS: Pyridoxine HCl 100 MG Tablet PO (09:30)
[2020-02-27] MEDS: Iron Polysaccharide Complex 150 MG CAPSULE PO (09:30)
[2020-02-27 14:52] VITALS: BP 131/54; PULSE 60; RESP 16; TEMP 36.7; O2SAT 98
--- NOTE | 2020-02-27 15:14 | CASEMGMT ---
Social Work Insurance issued LCD 02/28, [place] 03/01. Notified pt and agreeable. Spoke with both sons and provided information/update. Son whom lives with pt can assist. Notified [facility] to restart services 5 days/wk for 3 hrs/day. Referred to [facility] for PTOT/SN. Pt requested shorter FWW but has received FWW within the last 5 years from insurance. Explained pt can purchase FWW at any drug store, etc. SonAdalberto, to fern picker pt 5 pm 03/01. Plan: DC home with son 02/28 with [facility] and [facility] PT/OT/SN. No DME needs. Joana Forte, PRINTER SLOTTER OPERATOR STATION SUPERINTENDENT
--- NOTE | 2020-02-27 17:23 | PCM.DC ---
- Discharge Diagnoses Current Active Problems: Current Active and Chronic Problems Debility (Acute) Osteoarthritis of left hip (Chronic) Body mass index (bmi) 31.0-31.9, adult (Chronic) Hypertension (Chronic) Osteopenia (Chronic) Osteoarthritis (Chronic) Restless leg syndrome (Chronic) Hearing loss (Chronic) Hyperparathyroidism (Acute) Tobacco abuse (Acute) You will use the following diet at home:: No restrictions, Regular Your food should be the consistency of: Regular Your liquids should be the consistency of: Regular/Thin Discharge Activity: Return to Normal Activity, May Shower, Use Walker Weight Bearing Status: Weight bearing as tolerated Call your doctor if you observe: Fever of 101 or Higher, Inability to urinate, Inability to have a bowel movement, Shortness of breath, Chest pain, Uncontrolled pain Allergies/Adverse Reactions: Allergies hydroxychloroquine [From Plaquenil] Allergy (Verified 02/10/20 18:43) NEEDS FOLLOW-UP Medications to take at Discharge Cholecalciferol (VIT D3) [Vitamin D3] 1,000 unit PO DAILY 02/10/20 Lisinopril [Zestril] 20 mg PO DAILY 02/10/20 Acetaminophen [Tylenol] 1,000 mg PO Q6H PRN PRN tablet 02/27/20 Doxycycline 100 mg PO BID #10 cap 02/27/20 Iron Polysaccharide Complex [Ferrex 150] 150 mg PO DAILYCM #30 cap 02/27/20 Melatonin 10 mg PO QHS tablet 02/27/20 Pramipexole Di-HCl [Mirapex] 0.5 mg PO QHS #30 tab 02/27/20 Pyridoxine HCl [Vitamin B-6] 100 mg PO DAILY@0800 tablet 02/27/20 The following prescriptions were given: Doxycycline 100 mg PO BID #10 cap Transmission Status: Pending to [facility] Iron Polysaccharide Complex [Ferrex 150] 150 mg PO DAILYCM #30 cap Transmission Status: Pending to [facility] Pramipexole Di-HCl [Mirapex] 0.5 mg PO QHS #30 tab Transmission Status: Pending to [facility] Primary Care Physician: Jaye Rodriguez MD [Primary Care Provider] - Please follow up with your Primary Care Physician in: 1 week. Test Results: Test results from this visit will be discussed in further detail at your follow-up appointment, if applicable. Please Follow Up With: Mj Vann Proposed Discharge Date: 03/01/20
--- NOTE | 2020-02-27 17:26 | DS.PCM_ITS ---
Discharge Date and Diagnosis - Problem List Patient Problems: Active and Suspected Problems Debility (Acute) Hyperparathyroidism (Acute) Tobacco abuse (Acute) Date of Admission: 02/10/20 Date of Discharge: 03/01/20 - Primary Discharge Diagnosis Acute Problems: Active Problems Debility (Acute) Hyperparathyroidism (Acute) Tobacco abuse (Acute) - Secondary Discharge Diagnosis Chronic Problems: Chronic Problems Osteoarthritis of left hip (Chronic) Body mass index (bmi) 31.0-31.9, adult (Chronic) Hypertension (Chronic) Osteopenia (Chronic) Osteoarthritis (Chronic) Restless leg syndrome (Chronic) Hearing loss (Chronic) Hospital Course and Treatment Imaging Results: 02/10/20 16:52 Diet: Regular Diet Microbiology 02/25/20 18:08 Fluid - Other Gram Stain - Final 02/25/20 18:08 Fluid - Other Body Fluid Culture - Final Staphylococcus epidermidis Operations: None Procedures: None Summary of Care Provided: The patient is a 84 year old Female with below past medical history hospitalized for left total hip replacement 02/08/[address] Roldan, admitted to TCU with debility, here for rehabilitation, strengthening, prior to discharge home with son. On TCU, resident transfused 2 units PRBC for postoperative anemia, Hemoglobin 10 post transfusion. Mirapex 0.5MG at bedtime added for restless leg syndrome, helpful, but consider stopping as outpatient. Left hip incision, some bloody drainage, culture grew S. Epi, will send home on Doxycycline 100MG BID to complete 7 day course. Discharge home with [facility] nonskilled Home Health Aides, [facility] PT/OT/SN, no Durable Medical Equipment needs. Patient Problems: Active and Suspected Problems Debility (Acute) Hyperparathyroidism (Acute) Tobacco abuse (Acute) - Physical Exam Vitals/I&O's: Vital Signs Temp Pulse Resp BP Pulse Ox 98.1 F 60 16 131/54 H 98 02/27/20 14:52 02/27/20 14:52 02/27/20 14:52 02/27/20 14:52 02/27/20 14:52 Oxygen Delivery Method Room Air Weight: 78.245 kg Body Mass Index (BMI) 31.8 Intake and Output for Last 24 Hours 02/25/20 02/26/20 02/27/20 23:59 23:59 23:59 Intake Total 660 / 660 720 / 720 600 / 600 Balance 660 / 660 720 / 720 600 / 600 Microbiology Past 72 Hours 02/25/20 18:08 Fluid - Other Gram Stain - Final 02/25/20 18:08 Fluid - Other Body Fluid Culture - Final Staphylococcus epidermidis Current Medications Acetaminophen (Tylenol) 1,000 mg PO Q6H PRN PRN PRN Reason: Pain Score 1-3/10 Last Admin: 02/16/20 15:42 Dose: 1,000 mg Documented by: Bisacodyl (Dulcolax) 10 mg PO DAILY PRN PRN Reason: Constipation Last Admin: 02/15/20 04:39 Dose: 10 mg Documented by: Cholecalciferol (Vitamin D (25mcg)) 1,000 unit PO DAILY [facility] Last Admin: 02/27/20 04:16 Dose: 1,000 unit Documented by: Doxycycline Monohydrate (Doxycycline) 100 mg PO BID [facility] Stop: 03/05/20 18:01 Lisinopril (Zestril) 20 mg PO DAILY [facility] Last Admin: 02/27/20 04:16 Dose: 20 mg Documented by: Melatonin (Melatonin) 10 mg PO QHS [facility] Last Admin: 02/26/20 21:12 Dose: 10 mg Documented by: Oxycodone HCl (Oxyir) 2.5 mg PO Q4H PRN PRN PRN Reason: Pain Score 4-1010 Last Admin: 02/19/20 20:16 Dose: 2.5 mg Documented by: Polyethylene Glycol (Miralax) 17 gm PO DAILY [facility] Last Admin: 02/27/20 04:17 Dose: 17 gm Documented by: Polysaccharide Iron Complex ([facility]rex 150) [facility] Last Admin: 02/27/20 09:30 Dose: 150 mg Documented by: Pramipexole Dihydrochloride (Mirapex) 0.5 mg PO QHS [facility] Last Admin: 02/26/20 21:13 Dose: 0.5 mg Documented by: Pyridoxine HCl (Vitamin B-6) 100 mg PO DAILY@0800 [facility] Last Admin: 02/27/20 09:30 Dose: 100 mg Documented by: Senna/Docusate Sodium (Senokot-S, Leah-Colace) 2 tablet PO BID [facility] Last Admin: 02/27/20 14:29 Dose: Not Given Documented by: Discharge Diet: No Restrictions Discharge Activity: Return to Normal Activity, May Shower, Use Walker Weight Bearing Status: Weight bearing as tolerated Call your doctor if you observe: Fever of 101 or Higher, Inability to urinate, Inability to have a bowel movement, Shortness of breath, Chest pain, Uncontrolled pain Home Medications: Medications to take at Discharge Cholecalciferol (VIT D3) [Vitamin D3] 1,000 unit PO DAILY 02/10/20 Lisinopril [Zestril] 20 mg PO DAILY 02/10/20 Acetaminophen [Tylenol] 1,000 mg PO Q6H PRN PRN tablet 02/27/20 Doxycycline 100 mg PO BID #10 cap 02/27/20 Iron Polysaccharide Complex [Ferrex 150] 150 mg PO DAILYCM #30 cap 02/27/20 Melatonin 10 mg PO QHS tablet 02/27/20 Pramipexole Di-HCl [Mirapex] 0.5 mg PO QHS #30 tab 02/27/20 Pyridoxine HCl [Vitamin B-6] 100 mg PO DAILY@0800 tablet 02/27/20 Following Prescrptions Were Given to Patient: Doxycycline 100 mg PO BID #10 cap Transmission Status: Pending to [facility] Iron Polysaccharide Complex [Ferrex 150] 150 mg PO DAILYCM #30 cap Transmission Status: Pending to [facility] [place] [address] Pramipexole Di-HCl [Mirapex] 0.5 mg PO QHS #30 tab Transmission Status: Pending to [facility] [place] [address] Primary Care Physician: Jaye Rodriguez MD [Primary Care Provider] - Please follow up with your Primary Care Physician in: 1 week. Please Follow Up With: Mj Vann Disposition: Home with Home Health Minutes spent on discharge:: 35 Patient Condition:: Stable Medical Necessity - Tobacco Use Smoking Status: Current every day smoker Tobacco Use: Cigarettes Meaningful Use Info Meaningful Use Diagnoses (Choose all that apply): None applicable
[2020-02-27] MEDS: Doxycycline 100 MG CAPSULE PO (18:43)
[2020-02-27] MEDS: MELATONIN 10 MG TABLET PO (21:05)
[2020-02-27] MEDS: Pramipexole Di-HCl 0.5 MG Tablet PO (21:05)
[2020-02-28 06:10] VITALS: BP 118/53; PULSE 81; RESP 16; TEMP 36.7; O2SAT 95
[2020-02-28] MEDS: Doxycycline 100 MG CAPSULE PO ×2 (06:13→16:34)
[2020-02-28] MEDS: Lisinopril 20 MG Tablet PO (06:13)
[2020-02-28] MEDS: Polyethylene Glycol 3350 17 GM PACKET PO (06:16)
[2020-02-28] MEDS: Pyridoxine HCl 100 MG Tablet PO (08:32)
[2020-02-28] MEDS: Iron Polysaccharide Complex 150 MG CAPSULE PO (08:32)
--- NOTE | 2020-02-28 12:26 | CASEMGMT ---
Social Work Son, Jaydon, contacted inquiring further about pt's progress and assistance level she will need at home. Therapy spoke with son. Son would like to appeal insurance decision as he feels the 14 day in room isolation did not allow pt to progress as much as possible, and pt still needs assistance with bed mobility and ADLS. Reexplained to son that pt uses adaptive equipment to assist with those tasks that allow her to be independent. Also confirmed the [facility] aides will be there to assist pt with ADLs M-F and son there to assist otherwise. Son stated regardless of that assistance, he would like for her to continue with therapy longer, as pt does not feel ready to DC home at this time. Explained appeal rights, that financial liability will begin 03/01 if pt is not discharged and Mauricio does agree with insurance decision. Son sated pt does not have funds to pay privately, but would like to still file appeal. Son filed appeal. Awaiting confirmation from [facility] to send requested clinical records. Joana Forte, SANDEE LINUX NETWORK ENGINEER
--- NOTE | 2020-02-28 12:53 | CASEMGMT ---
Social Work Mauricio received appeal - Case Number [id number]. Faxed requested clinicals. Joana Forte MSW DAIRY INSPECTOR
[2020-02-28 14:37] VITALS: BP 130/61; PULSE 84; RESP 17; TEMP 37.2; O2SAT 96
[2020-02-28] MEDS: MELATONIN 10 MG TABLET PO (21:45)
[2020-02-28] MEDS: Pramipexole Di-HCl 0.5 MG Tablet PO (21:45)
[2020-02-29 06:01] VITALS: BP 112/44; PULSE 83; RESP 16; TEMP 36.4; O2SAT 97
[2020-02-29] MEDS: Lisinopril 20 MG Tablet PO (06:03)
[2020-02-29] MEDS: Doxycycline 100 MG CAPSULE PO ×2 (06:03→17:29)
[2020-02-29] MEDS: Iron Polysaccharide Complex 150 MG CAPSULE PO (09:01)
[2020-02-29] MEDS: Pyridoxine HCl 100 MG Tablet PO (09:01)
--- NOTE | 2020-02-29 12:54 | CASEMGMT ---
Social [facility] pt lost appeal. Notified son and pt. Discussed private pay in TCU to son. The plan is for pt to DC home 03/01 with nonskilled and skilled HHC. SANDEE MaldonadoW
[2020-02-29 15:01] VITALS: BP 106/56; PULSE 86; RESP 16; TEMP 36.6; O2SAT 95
[2020-02-29] MEDS: Senna/Docusate Sodium 1 Tablet 2 TABLET PO (17:30)
--- NOTE | 2020-02-29 20:08 | NURSING ---
Addendum entered by Krystal Pemberton 02/29/20 21:52: Daughter in law Jacquelin updated on incision status and dressing. Very appreciative. Original Note: Mele Hobson and Daughter in law Jacquelin called to get update on discharge instructions. Updated provided.
[2020-02-29] MEDS: Pramipexole Di-HCl 0.5 MG Tablet PO (21:11)
[2020-02-29] MEDS: MELATONIN 10 MG TABLET PO (21:11)
[2020-03-01 06:50] VITALS: BP 127/94; PULSE 81; RESP 16; TEMP 36.2; O2SAT 95
[2020-03-01] MEDS: Doxycycline 100 MG CAPSULE PO ×2 (06:52→17:06)
[2020-03-01] MEDS: Lisinopril 20 MG Tablet PO (06:52)
[2020-03-01] MEDS: Pyridoxine HCl 100 MG Tablet PO (08:27)
[2020-03-01] MEDS: Iron Polysaccharide Complex 150 MG CAPSULE PO (08:27)
[2020-03-01 14:54] VITALS: BP 114/72; PULSE 84; RESP 16; TEMP 36.7; O2SAT 96
--- NOTE | 2020-03-01 16:24 | CASEMGMT ---
Social Work Brief interview for mental status (BIMS) and resident mood assessment (PHQ-9) completed on this day. BIMS score . PHQ-9 score . Latha IGNACIO, CORRIE
== END 2020-03-01 17:25 | disposition home health service (06) | DRG 561 ==
PROVIDERS: Admitting Provider Family Medicine Geriatric Medicine; PCP Internal Medicine; Visit Provider Family Medicine Geriatric Medicine
DX: Z47.1 Aftercare following joint replacement surgery (principal); G25.81 Restless legs syndrome; Z96.642 Presence of left artificial hip joint; I10 Essential (primary) hypertension; F17.210 Nicotine dependence, cigarettes, uncomplicated; E21.3 Hyperparathyroidism, unspecified; D64.9 Anemia, unspecified
CPT/HCPCS: 36415; 80048; 85014; 85018; 85025; 86850; 86900; 86901; 86920; 86922; 87070; 87075; 87077; 87186; 87205; 87635; 97110; 97116; 97162; 97166; 97530; 97535; 97802; 99406; G2023; U0003

== ENCOUNTER → 2020-02-16 08:53 | Outpatient (CLI) | payer MEDICARE, SELFPAY ==
[2020-02-10 16:49] VITALS: BMI 31.8
[2020-02-16] VITALS (7 sets, daily range): BP systolic 93–130; BP diastolic 46–80; PULSE 78–92; RESP 16; TEMP 36.1–36.5; O2SAT 98–100; BMI 31.4
[2020-02-16] MEDS: 0.9% NaCl Peripheral Flush Adult/Peds IV (09:40)
[2020-02-16] MEDS: Furosemide 20 MG/2 ML VIAL IV (11:50)
== END ==
PROVIDERS: PCP Internal Medicine; Referring Provider Family Medicine Geriatric Medicine; Visit Provider Family Medicine Geriatric Medicine
DX: D64.9 Anemia, unspecified (principal)
CPT/HCPCS: 36415; 36430; 86850; 86900; 86901; 86920; 86922; J7040; P9016; A4216; J1940

== ENCOUNTER 2020-03-17 17:35 | Inpatient (IN) | payer MEDICARE, SELFPAY ==
[2020-02-16 09:16] VITALS: BMI 31.4
[2020-03-17 18:26] VITALS: BMI 32.3
[2020-03-17 18:38] VITALS: BP 132/66; PULSE 95; RESP 18; TEMP 37.2; O2SAT 97
[2020-03-17 18:43] VITALS: BMI 32.3
--- NOTE | 2020-03-17 18:53 | NURSING ---
Patient had Vitamin K2 oral ordered. Pharmacy [facility]) stated we do not carry this medication.
--- NOTE | 2020-03-17 19:36 | HP.PCM_ITS ---
Problem List (1) Periprosthetic fracture around internal prosthetic left hip joint Status: Acute (2) Debility Status: Acute (3) Osteoarthritis of left hip Status: Chronic (4) Body mass index (bmi) 31.0-31.9, adult Status: Chronic (5) Hypertension Status: Chronic (6) Osteopenia Status: Chronic (7) Osteoarthritis Status: Chronic (8) Restless leg syndrome Status: Chronic (9) Hearing loss Status: Chronic (10) Hyperparathyroidism Status: Chronic (11) Tobacco abuse Status: Chronic History of Present Illness Date of Admission: 03/17/20 Chief Complaint: Here for rehabilitation, strengthening, prior to discharge home with family. The patient is a 84 year old Female with below past medical history with followin02/08/2020 Dr. Roldan performed left total hip arthroplasty. 03/13/2020 Patient suffered left periprosthetic hip fracture. 03/13/2020 Admit to [facility]. 03/13/2020 Dr. Perera cleared her for surgery. 03/15/2020 Dr. Roldan repaired periprosthetic left femur fracture with longer lorri. 03/16/2020 Blood transfusion. 03/17/2020 Admit to TCU with debility, here for rehabilitation, strengthening, prior to discharge home with family. Past Medical History Past Medical History (Chronic Problems): Chronic Problems Osteoarthritis of left hip (Chronic) Body mass index (bmi) 31.0-31.9, adult (Chronic) Hypertension (Chronic) Osteopenia (Chronic) Osteoarthritis (Chronic) Restless leg syndrome (Chronic) Hearing loss (Chronic) Hyperparathyroidism (Chronic) Tobacco abuse (Chronic) Allergies hydroxychloroquine [From Plaquenil] Allergy (Verified 02/10/20 18:43) NEEDS FOLLOW-UP Home Medications: Ambulatory Orders Medication Instructions Recorded Cholecalciferol (VIT D3) [Vitamin 1,000 unit PO DAILY 02/10/20 D3] Lisinopril [Zestril] 20 mg PO DAILY 02/10/20 Acetaminophen [Tylenol] 1,000 mg PO Q6H PRN PRN tab 02/27/20 Doxycycline 100 mg PO BID #10 cap 02/27/20 Melatonin 10 mg PO QHS tab 02/27/20 Acetaminophen [Tylenol] 2 tab PO Q6H PRN PRN 03/17/20 Ascorbic Acid [Vitamin C] 500 mg PO DAILY 03/17/20 Aspirin E.C. [Ecotrin] 81 mg PO DAILY@0803/17/20 Enoxaparin [Lovenox] 40 mg SUBCUT DAILY@0603/17/20 Iron Polysaccharide Complex 150 mg PO DAILYCM 03/17/20 [Ferrex 150] Polyethylene Glycol 3350 [Miralax] 17 gm PO DAILY 03/17/20 Pramipexole Di-HCl [Mirapex] 0.5 mg PO QHS 03/17/20 Pyridoxine HCl [Vitamin B-6] 100 mg PO DAILY@0803/17/20 Surgical History: hysterectomy, total hip arthroplasty - Left., total knee arthroplasty - Bilateral., tonsillectomy, - - Parathyroidectomy, Melanoma, Carpal tunnel release, Vaginectomy, Left periprosthetic femur fracture repair with longer lorri. Psychiatric History: No pertinent psych hx MAINTENANCE ENGINEER History: - - Vaginectomy. Lives: With Family - Son, daughter in law. Smoking Status: Current some day smoker Tobacco Use: Cigarettes Alcohol: None Drugs: None - *Family History Maternal History Items: No pertinent history Paternal History Items: No pertinent history Review of Systems Constitutional: Denies: Chills, Fever, Weight Change HEENT: Denies: Head Aches, Sinus Congestion, Sinus Drainage Cardiovascular: Denies: Chest Pain, Palpitations Respiratory: Denies: Cough, Shortness of breath at rest, Sputum production Gastrointestinal: Denies: Abdominal Pain, Nausea, Vomiting Genitourinary: Denies: Dysuria Musculoskeletal: Denies: Joint Pain, Joint Tenderness Skin: Denies: Rash, Wounds Neurological: Denies: Numbness, Tingling, Focal weakness Psychiatric: Denies: Anxiety, Depression, Homicidal Ideations, Suicidal Ideations Hematologic/ Lymphatic: Denies: Easy Bruising, Easy Bleeding VTE Information - Inpt Only VTE Present on Admission: No VTE Mechan Device Prophylaxis: Knee High KADE Hose VTE Pharm Prophylaxis ordered?: Yes Patient Problems: Active and Suspected Problems Periprosthetic fracture around internal prosthetic left hip joint (Acute) - Physical Exam Vitals/I&O's: Vital Signs Temp Pulse Resp BP Pulse Ox 98.9 F 95 18 132/66 H 97 03/17/20 18:38 03/17/20 18:38 03/17/20 18:38 03/17/20 18:38 03/17/20 18:38 Oxygen Delivery Method Room Air Weight: 77.564 kg Body Mass Index (BMI) 32.3 General: Alert, Oriented x3, Cooperative HEENT: Atraumatic, PERRLA, EOMI, Normocephalic Neck: Supple, No JVD, Negative Carotid Bruits Lungs: Clear to auscultation, Normal air movement Cardiovascular: Regular rate, No murmurs Abdomen: Bowel Sounds Present, Soft, Non Tender Extremities: No edema, Capillary Refill Less than 3 Seconds Skin: No rashes, No breakdown Musculoskeletal: No Tenderness to Palpation of Joints or Extremities Neurological: Cranial nerves II-XII grossly intact Psych/Mental Status: Normal Affect, Appropriate Laboratory Results 03/17/20 19:20: COVID-19 (IDA) Pending Current Medications Acetaminophen (Tylenol) 650 mg PO Q6H PRN PRN PRN Reason: Pain or Fever Ascorbic Acid (Vitamin C) 500 mg PO DAILY@0800 [facility] Aspirin (Ecotrin) 81 mg PO DAILY@0800 [facility] Cholecalciferol (Vitamin D (25mcg)) 1,000 unit PO DAILY [facility] Enoxaparin Sodium (Lovenox) 40 mg SC DAILY@0600 [facility] Stop: 03/29/20 22:00 Lisinopril (Zestril) 20 mg PO DAILY [facility] Nutritional Formula (Lactose Free) (Ensure Enlive) 120 ml PO 4X/DAY [facility] Polyethylene Glycol (Miralax) 17 gm PO DAILY [facility] Polysaccharide Iron Complex (Ferrex 150) 150 mg PO DAILYCM [facility] Pramipexole Dihydrochloride (Mirapex) 0.5 mg PO QHS [facility] Pyridoxine HCl (Vitamin B-6) 100 mg PO DAILY@0800 [facility] Tuberculin PPD (Tubersol, Aplisol, Ppd) 5 tu ID X1 ONE Stop: 03/18/20 10:01 Tuberculin PPD (Tubersol, Aplisol, Ppd) 5 tu ID X1 ONE Stop: 03/25/20 10:01 Assessment/Plan All Active Problems Debility (Acute) Periprosthetic fracture around internal prosthetic left hip joint (Acute) 84 year old female with below past medical history hospitalized for periprosthetic left femur fracture, underwent repair with longer lorri 03/15/[address] Roldan, admitted to TCU with debility, here for rehabilitation, strengthening, prior to discharge home with family. * Debility - PT/OT. * Pain - Tylenol 1000MG Q6H PRN pain (1-3), Oxycodone 2.5MG Q4H PRN pain (4-10). * Bowel - Miralax 17GM daily, Senna/colace 1 tablet BID, Dulcolax 10MG IA daily PRN. * Adult immunization - Administer Prevnar 13, Pneumovax 23, Fluzone as appropriate. * DVT prophylaxis - Lovenox 40MG SC daily. * Vitamin C deficiency - Vitamin C 500MG daily. * CV prophylaxis - Aspirin 81MG daily. * Vitamin D deficiency - Vitamin D3 1000IU daily. * Nutrition - Ensure Enlive 120ML 4x/day. * Hypertension - Lisinopril 20MG daily. * Restless Leg syndrome - Mirapex 0.5MG QHS. * Vitamin B-6 deficiency - Vitamin B-6 100MG daily.
[2020-03-17 20:30] LABS: Probe Check PASS; Specimen Processing Control PASS
[2020-03-17] MEDS: Pramipexole Di-HCl 0.5 MG Tablet PO (22:23)
[2020-03-17] MEDS: MELATONIN 10 MG TABLET PO (22:23)
[2020-03-18 06:51] LABS: Absolute Lymphocyte Count 1.42 X10^3/uL (0.83-4.51); Absolute Neutrophil Count 4.8 X10^3/uL (2.0-7.7); Basophil# 0.07 X10^3/uL; Basophil% 0.9 % (0-1); Eosinophil# 0.46 X10^3/uL; Eosinophils% 5.9 % (0-5); Hematocrit 24.9 % (37-47); Hemoglobin 7.9 g/dL (12.0-15.0); Lymphocyte # 1.42 X10^3/ul (4.0); Lymphocyte % 18.3 % (19-41); Mean Corp Hgb Conc 31.7 g/dL (32-36); Mean Corpuscular Hgb 31.5 pg (27.0-32.0); Mean Corpuscular Volume 99.2 fL (81-99); Monocyte# 0.67 X10^3/uL; Monocyte% 8.7 % (0-10); NRBC Flagged by Analyzer 0 % (0-5); Neutrophil # 4.82 X10^3/uL (2.7-7.7); Neutrophil % 62.3 % (47-70); Platelet Count 285 K/mm3 (150-450); RBC Distribution Width CV 15.1 % (11.6-14.6); RBC Distribution Width SD 54.7 fl (35.1-43.9); Red Blood Count 2.51 M/mm3 (4.2-5.4); White Blood Count 7.7 K/mm3 (4.4-11.0)
[2020-03-18 07:02] VITALS: BP 126/67; PULSE 89; RESP 18; TEMP 36.8; O2SAT 95
[2020-03-18] MEDS: Polyethylene Glycol 3350 17 GM PACKET PO (07:06)
[2020-03-18] MEDS: Senna/Docusate Sodium 1 Tablet PO ×2 (07:07→16:25)
[2020-03-18] MEDS: Menthol/Lanolin/Calamine/Znox 113 GM Tube 1 APPLIC TOPICAL ×2 (07:07→16:25)
[2020-03-18] MEDS: Enoxaparin 40 MG/0.4 ML Syringe SC (07:07)
[2020-03-18] MEDS: Lisinopril 20 MG Tablet PO (07:08)
[2020-03-18 07:51] LABS: Anion Gap 6 (5-15); BUN 9 mg/dL (7-18); BUN/Creat Ratio 18.9 RATIO (10-20); Calcium,Total 7.9 mg/dL (8.5-10.1); Chloride 102 mmol/L (98-107); Creatinine, Serum 0.48 mg/dL (0.55-1.02); EST Glomerular Filtration Rate 132 mL/min (>60); Est Glom Filt Rate - Afr Amer 160 mL/min (>60); Estimated Creatinine Clearance 31.04 ml/min; Glucose 94 mg/dL (74-106); Sodium Level 135 mmol/L (136-145)
[2020-03-18] MEDS: Pyridoxine HCl 100 MG Tablet PO (08:37)
[2020-03-18] MEDS: Ascorbic Acid 500 MG Tablet PO (08:37)
[2020-03-18] MEDS: Iron Polysaccharide Complex 150 MG CAPSULE PO (08:37)
[2020-03-18] MEDS: Aspirin E.C. 81 MG Tablet PO (08:37)
[2020-03-18] MEDS: Tuberculin,Purif.prot.deriv. 50 TU/ML Vial 5 ML ID (10:44)
--- NOTE | 2020-03-18 12:13 | NURSING ---
Received order from Dr. Bond to apply [employer], per pt request.
[2020-03-18 12:15] VITALS: PULSE 103; RESP 20; O2SAT 95
[2020-03-18 14:00] VITALS: BP 128/64; PULSE 103; RESP 20; TEMP 36.2; O2SAT 95
[2020-03-18] MEDS: MELATONIN 10 MG TABLET PO (20:58)
[2020-03-18] MEDS: Pramipexole Di-HCl 0.5 MG Tablet PO (20:58)
[2020-03-19 04:00] VITALS: BP 142/74; PULSE 84; RESP 18; TEMP 36.6; O2SAT 94
[2020-03-19] MEDS: Polyethylene Glycol 3350 17 GM PACKET PO (06:35)
[2020-03-19] MEDS: Lisinopril 20 MG Tablet PO (06:36)
[2020-03-19] MEDS: Menthol/Lanolin/Calamine/Znox 113 GM Tube 1 APPLIC TOPICAL ×2 (06:36→17:17)
[2020-03-19] MEDS: Enoxaparin 40 MG/0.4 ML Syringe SC (06:36)
[2020-03-19] MEDS: Senna/Docusate Sodium 1 Tablet PO ×2 (06:36→17:17)
[2020-03-19] MEDS: Pyridoxine HCl 100 MG Tablet PO (08:15)
[2020-03-19] MEDS: Aspirin E.C. 81 MG Tablet PO (08:15)
[2020-03-19] MEDS: Iron Polysaccharide Complex 150 MG CAPSULE PO (08:15)
[2020-03-19] MEDS: Ascorbic Acid 500 MG Tablet PO (08:15)
--- NOTE | 2020-03-19 09:54 | NURSING ---
call from KIRK Simon working with Dr. Laguna in [place]. States tissue cx came back from Left Hip showing gram + Cocci. Requesting pt be started on Augmentin 875/12mg PO Daily for 14 days.
[2020-03-19] MEDS: Amox/Clavulanate 875 MG Tablet PO (11:47)
[2020-03-19 13:48] VITALS: BP 144/61; PULSE 16; RESP 98; TEMP 36.7; O2SAT 98
--- NOTE | 2020-03-19 14:26 | PCM.PN.RX ---
<Astrid Lan M - Last Filed: 03/19/20 14:27> Progress Note - Pharmacy Subjective: TCU ADMISSION Objective: Allergies hydroxychloroquine [From Plaquenil] Allergy (Verified 02/10/20 18:43) NEEDS FOLLOW-UP Current Medications Generic Name Dose Route Start Last Admin Trade Name Freq PRN Reason Stop Dose Admin Acetaminophen 1,000 mg 03/17/20 20:00 Tylenol PO Q6H PRN PRN Pain Score 1-3/10 Amoxicillin/Clavulanate Potassium 875 mg 03/19/20 12:00 03/19/20 11:47 Augmentin Tablet PO 04/01/20 12:01 875 mg LUNCH NESSA Administration Ascorbic Acid 500 mg 03/18/20 08:00 03/19/20 08:15 Vitamin C PO 500 mg DAILY@0800 [facility] Administration Aspirin 81 mg 03/18/20 08:00 03/19/20 08:15 Ecotrin PO 81 mg DAILY@0800 [facility] Administration Bisacodyl 10 mg 03/17/20 20:00 Dulcolax RECTAL DAILY PRN Constipation Calamine/Phenol 1 applic 03/18/20 06:00 03/19/20 06:36 Calmoseptine Ointment TOPICAL 1 applicatio BID [facility] Administration Protocol Cholecalciferol 1,000 unit 03/18/20 06:00 03/19/20 06:35 Vitamin D (25mcg) PO 1,000 unit DAILY [facility] Administration Enoxaparin Sodium 40 mg 03/18/20 06:00 03/19/20 06:36 Lovenox SC 03/29/20 22:00 40 mg DAILY@0600 [facility] Administration Lisinopril 20 mg 03/18/20 06:00 03/19/20 06:36 Zestril PO 20 mg DAILY [facility] Administration Melatonin 10 mg 03/17/20 22:00 03/18/20 20:58 Melatonin PO 10 mg QHS [facility] Administration Nutritional Formula (Lactose Free) 120 ml 03/17/20 22:00 03/19/20 11:47 Ensure Enlive PO 120 ml 4X/DAY [facility] Administration Oxycodone HCl 2.5 mg 03/17/20 20:00 Oxyir PO Q4H PRN PRN Pain Score 4-10/10 Polyethylene Glycol 17 gm 03/18/20 06:00 03/19/20 06:35 Miralax PO 17 gm DAILY [facility] Administration Polysaccharide Iron Complex 150 mg 03/18/20 08:00 03/19/20 08:15 Ferrex 150 PO 150 mg DAILYCM [facility] Administration Pramipexole Dihydrochloride 0.5 mg 03/17/20 22:00 03/18/20 20:58 Mirapex PO 0.5 mg QHS [facility] Administration Pyridoxine HCl 100 mg 03/18/20 08:00 03/19/20 08:15 Vitamin B-6 PO 100 mg DAILY@0800 [facility] Administration Senna/Docusate Sodium 1 tablet 03/18/20 06:00 03/19/20 06:36 Senokot-S, Leah-Colace PO 1 tablet BID [facility] Administration Tuberculin PPD 5 tu 03/25/20 10:00 Tubersol, Aplisol, Ppd ID 03/25/20 10:01 X1 ONE Problem List Periprosthetic fracture around internal prosthetic left hip joint (Acute) Vital Signs Temp Pulse Resp BP Pulse Ox 98.1 F 16 L 98 H 144/61 H 98 03/19/20 13:48 03/19/20 13:48 03/19/20 13:48 03/19/20 13:48 03/19/20 13:48 Oxygen Delivery Method Room Air Weight: 77.6 kg Body Mass Index (BMI) 32.3 Sodium 135 mmol/L (136-145) L 03/18/20 06:35 Potassium 4.0 mmol/L (3.5-5.1) 03/18/20 06:35 Chloride 102 mmol/L (98-107) 03/18/20 06:35 Carbon Dioxide 27.0 mmol/L (21.0-32.0) 03/18/20 06:35 Anion Gap 6 (5-15) 03/18/20 06:35 BUN 9 mg/dL (7-18) 03/18/20 06:35 Creatinine 0.48 mg/dL (0.55-1.02) L 03/18/20 06:35 Est GFR (MDRD) Af Amer 160 mL/min (>60) 03/18/20 06:35 Est GFR (MDRD) Non-Af 132 mL/min (>60) 03/18/20 06:35 BUN/Creatinine Ratio 18.9 RATIO (10-20) 03/18/20 06:35 Glucose 94 mg/dL (74-106) 03/18/20 06:35 Assessment/Plan: 1. Pain: Tylenol 1000mg PO Q6h PRn pain 1-3/10, Oxycodone 2.5mg PO Q4h PRN pain 4-10/10. Please continue to monitor for increased/decreased pain, PRN medication usage. 2. Hypertension/CV Prophylaxis: Lisinopril 20mg PO Daily, Aspirin 81mg PO daily. Please continue to monitor BP, electrolytes, and for S/S bleeding/bruising. 3. Hip Infection: Augmentin 875mg PO BID thru 04/01/20. Please continue to monitor for resolution of infection, renal function, and for diarrhea. 4. Restless Leg Syndrome: Mirapex 0.5mg PO QHS. Please continue to monitor for improvement in RLS symptoms. 5. DVT Prophylaxis: Lovenox 40mg SC Daily. Please continue to monitor for S/S bleeding/bruising, renal function. 6. Insomnia: Melatonin 10mg PO QHS. Please continue to monitor sleep quality. 7. General Wellness: Ascorbic Acid 500mg PO Daily, Cholecalciferol 1,000 unit PO Daily, Pyridoxine 100mg PO Daily, Ferrex 150mg PO Daily. Please continue to monitor. Psychotropic Medications: None Unnecessary Medications: None Bowel Regimen: Miralax 17g PO Daily, Senna/Docusate 1 tab PO BID, Dulcolax 10mg rectal daily PRN. Please continue to monitor for s/s constipation and/or diarrhea. Date of Note:: 03/19/20 - Provider Comments Provider responsibility: Provider responsible to enter orders to implement recommendations <Marquez Bond Chi - Last Filed: 03/19/20 17:25> Progress Note - Pharmacy Subjective: [] Objective: Allergies hydroxychloroquine [From Plaquenil] Allergy (Verified 02/10/20 18:43) NEEDS FOLLOW-UP Current Medications Generic Name Dose Route Start Last Admin Trade Name Freq PRN Reason Stop Dose Admin Acetaminophen 1,000 mg 03/17/20 20:00 Tylenol PO Q6H PRN PRN Pain Score 1-3/10 Amoxicillin/Clavulanate Potassium 875 mg 03/19/20 12:00 03/19/20 11:47 Augmentin Tablet PO 04/01/20 12:01 875 mg LUNCH NESSA Administration Ascorbic Acid 500 mg 03/18/20 08:00 03/19/20 08:15 Vitamin C PO 500 mg DAILY@0800 [facility] Administration Aspirin 81 mg 03/18/20 08:00 03/19/20 08:15 Ecotrin PO 81 mg DAILY@0800 [facility] Administration Bisacodyl 10 mg 03/17/20 20:00 Dulcolax RECTAL DAILY PRN Constipation Calamine/Phenol 1 applic 03/18/20 06:00 03/19/20 17:17 Calmoseptine Ointment TOPICAL 1 applicatio BID [facility] Administration Protocol Cholecalciferol 1,000 unit 03/18/20 06:00 03/19/20 06:35 Vitamin D (25mcg) PO 1,000 unit DAILY [facility] Administration Enoxaparin Sodium 40 mg 03/18/20 06:00 03/19/20 06:36 Lovenox SC 03/29/20 22:00 40 mg DAILY@0600 [facility] Administration Lisinopril 20 mg 03/18/20 06:00 03/19/20 06:36 Zestril PO 20 mg DAILY [facility] Administration Melatonin 10 mg 03/17/20 22:00 03/18/20 20:58 Melatonin PO 10 mg QHS [facility] Administration Nutritional Formula (Lactose Free) 120 ml 03/17/20 22:00 03/19/20 17:17 Ensure Enlive PO 120 ml 4X/DAY [facility] Administration Oxycodone HCl 2.5 mg 03/17/20 20:00 Oxyir PO Q4H PRN PRN Pain Score 4-10/10 Polyethylene Glycol 17 gm 03/18/20 06:00 03/19/20 06:35 Miralax PO 17 gm DAILY [facility] Administration Polysaccharide Iron Complex 150 mg 03/18/20 08:00 03/19/20 08:15 Ferrex 150 PO 150 mg DAILYCM [facility] Administration Pramipexole Dihydrochloride 0.5 mg 03/17/20 22:00 03/18/20 20:58 Mirapex PO 0.5 mg QHS [facility] Administration Pyridoxine HCl 100 mg 03/18/20 08:00 03/19/20 08:15 Vitamin B-6 PO 100 mg DAILY@0800 [facility] Administration Senna/Docusate Sodium 1 tablet 03/18/20 06:00 07/13/20 17:17 Senokot-S, Leah-Colace PO 1 tablet BID [facility] Administration Tuberculin PPD 5 tu 03/25/20 10:00 Tubersol, Aplisol, Ppd ID 03/25/20 10:01 X1 ONE Problem List Periprosthetic fracture around internal prosthetic left hip joint (Acute) Vital Signs Temp Pulse Resp BP Pulse Ox 98.1 F 16 L 98 H 144/61 H 98 03/19/20 13:48 03/19/20 13:48 03/19/20 13:48 03/19/20 13:48 03/19/20 13:48 Oxygen Delivery Method Room Air Weight: 77.6 kg Body Mass Index (BMI) 32.3 Sodium 135 mmol/L (136-145) L 03/18/20 06:35 Potassium 4.0 mmol/L (3.5-5.1) 03/18/20 06:35 Chloride 102 mmol/L (98-107) 03/18/20 06:35 Carbon Dioxide 27.0 mmol/L (21.0-32.0) 03/18/20 06:35 Anion Gap 6 (5-15) 03/18/20 06:35 BUN 9 mg/dL (7-18) 03/18/20 06:35 Creatinine 0.48 mg/dL (0.55-1.02) L 03/18/20 06:35 Est GFR (MDRD) Af Amer 160 mL/min (>60) 03/18/20 06:35 Est GFR (MDRD) Non-Af 132 mL/min (>60) 03/18/20 06:35 BUN/Creatinine Ratio 18.9 RATIO (10-20) 03/18/20 06:35 Glucose 94 mg/dL (74-106) 03/18/20 06:35 Assessment/Plan: Psychotropic Medications: Unnecessary Medications: Bowel Regimen: - Provider Comments Provider responsibility: Provider responsible to enter orders to implement recommendations Provider Comments to Recommendations by Pharmacy: Agree
[2020-03-19] MEDS: MELATONIN 10 MG TABLET PO (21:07)
[2020-03-19] MEDS: Pramipexole Di-HCl 0.5 MG Tablet PO (21:08)
[2020-03-20] MEDS: Enoxaparin 40 MG/0.4 ML Syringe SC (06:23)
[2020-03-20] MEDS: Menthol/Lanolin/Calamine/Znox 113 GM Tube 1 APPLIC TOPICAL ×2 (06:23→17:34)
[2020-03-20] MEDS: Senna/Docusate Sodium 1 Tablet PO ×2 (06:23→17:34)
[2020-03-20] MEDS: Polyethylene Glycol 3350 17 GM PACKET PO (06:23)
[2020-03-20] MEDS: Lisinopril 20 MG Tablet PO (06:24)
[2020-03-20 06:30] VITALS: BP 100/56; PULSE 92; RESP 15; TEMP 36.8; O2SAT 95
[2020-03-20] MEDS: Aspirin E.C. 81 MG Tablet PO (08:15)
[2020-03-20] MEDS: Pyridoxine HCl 100 MG Tablet PO (08:15)
[2020-03-20] MEDS: Ascorbic Acid 500 MG Tablet PO (08:15)
[2020-03-20] MEDS: Iron Polysaccharide Complex 150 MG CAPSULE PO (08:15)
[2020-03-20] MEDS: Amox/Clavulanate 875 MG Tablet PO (11:26)
[2020-03-20 14:27] VITALS: BP 125/48; PULSE 76; RESP 14; TEMP 36.6; O2SAT 95
[2020-03-20] MEDS: Bisacodyl 10 MG Suppository RECTAL (18:18)
[2020-03-20] MEDS: MELATONIN 10 MG TABLET PO (21:31)
[2020-03-20] MEDS: Pramipexole Di-HCl 0.5 MG Tablet PO (21:31)
[2020-03-21] MEDS: Polyethylene Glycol 3350 17 GM PACKET PO (06:33)
[2020-03-21] MEDS: Lisinopril 20 MG Tablet PO (06:37)
[2020-03-21] MEDS: Enoxaparin 40 MG/0.4 ML Syringe SC (06:37)
[2020-03-21] MEDS: Senna/Docusate Sodium 1 Tablet PO ×2 (06:37→18:03)
[2020-03-21] MEDS: Acetaminophen 500 MG Tablet 1000 MG PO (06:37)
[2020-03-21] MEDS: Menthol/Lanolin/Calamine/Znox 113 GM Tube 1 APPLIC TOPICAL ×2 (06:38→21:17)
[2020-03-21 06:39] VITALS: BP 144/60; PULSE 85; RESP 17; TEMP 36.3; O2SAT 98
[2020-03-21] MEDS: Ascorbic Acid 500 MG Tablet PO (08:08)
[2020-03-21] MEDS: Pyridoxine HCl 100 MG Tablet PO (08:09)
[2020-03-21] MEDS: Aspirin E.C. 81 MG Tablet PO (08:09)
[2020-03-21] MEDS: Iron Polysaccharide Complex 150 MG CAPSULE PO (08:09)
--- NOTE | 2020-03-21 11:25 | CASEMGMT ---
Social Work IDT met with patient, son and DIL via conference call for care plan meeting. Discussed patient's progress in therapy. Pt is supine to sit bed mobility at mod assist, sit to supine mod assist x2 to max for leg lifts, max assist for transfers with FWW, not ambulating due to TTBW and hard to maintain. Pt is total assist for LE ADLS, toileting at bed level, assist for UE ADLs due to limited shoulder ROM. Discussed at length IDT recommendations for 30/03 care at home. Pt denied AL or SNF - wants to return home. Emailed list of nonskilled C agencies to begin searching for increased HHC aides. Explained insurance NRD 03/21 and continued stay is not guaranteed. Activities to continue with 1:1 visits, pt enjoys reading books. PT is on regular diet, intake 50-100%, receiving ensure, weight is stable. Pt is out of room isolation 03/31, and has purewick catheter. Nursing to schedule f/u appt with ortho for WBS. Dressing to be changed 03/23 per ortho order. Will continue to follow for discharge planning. SANDEE MaldonadoW
[2020-03-21] MEDS: Amox/Clavulanate 875 MG Tablet PO (12:21)
[2020-03-21 14:58] VITALS: BP 165/101; PULSE 100; RESP 18; TEMP 37.1; O2SAT 98
--- NOTE | 2020-03-21 15:20 | NURSING ---
Dr Roldan office notified of pt needing f/u appt, they will call back today or tomorrow w/appt date & time. attempted to update Jacquelin, daughter in law but no answer and voice mail full.
[2020-03-21] MEDS: MELATONIN 10 MG TABLET PO (21:17)
[2020-03-21] MEDS: Pramipexole Di-HCl 0.5 MG Tablet PO (21:17)
[2020-03-22 06:37] VITALS: BP 125/51; PULSE 82; RESP 18; TEMP 36.8; O2SAT 98
[2020-03-22] MEDS: Polyethylene Glycol 3350 17 GM PACKET PO (06:43)
[2020-03-22] MEDS: Lisinopril 20 MG Tablet PO (06:44)
[2020-03-22] MEDS: Senna/Docusate Sodium 1 Tablet PO ×2 (06:44→16:02)
[2020-03-22] MEDS: Menthol/Lanolin/Calamine/Znox 113 GM Tube 1 APPLIC TOPICAL ×2 (06:44→16:03)
[2020-03-22] MEDS: Enoxaparin 40 MG/0.4 ML Syringe SC (06:44)
[2020-03-22] MEDS: Aspirin E.C. 81 MG Tablet PO (08:33)
[2020-03-22] MEDS: Iron Polysaccharide Complex 150 MG CAPSULE PO (08:33)
[2020-03-22] MEDS: Ascorbic Acid 500 MG Tablet PO (08:33)
[2020-03-22] MEDS: Pyridoxine HCl 100 MG Tablet PO (08:33)
--- NOTE | 2020-03-22 10:45 | NURSING ---
Addendum entered by Pao Swanson 03/22/20 13:07: Pt and son updated on new orders Original Note: Notified Dr. Roldan's office of pt having excessive drainage to surgical incision. Spoke with ELOINA Marion (Dr Roldan administrative assistant receptionist). Received order to consult Infectious disease, and apply 4 x 4, ABD and secure with tape, change daily and PRN. Order repeated back.
[2020-03-22] MEDS: Amox/Clavulanate 875 MG Tablet PO (11:40)
--- NOTE | 2020-03-22 11:52 | CASEMGMT ---
Social Work Received outcome from insurance with NRD 03/28 and estimated DC 04/04. Explained and provided [facility] predict care plan to pt and recommendations with 4.5 hours of assistance per day if pt decides to discharge home. Pt understands. Provided same information to JERMAINE Roper. Will continue to follow for discharge planning. Joana Forte, WRAPPER COUNTER MICA SPREADER
[2020-03-22 13:40] VITALS: BP 110/32; PULSE 93; RESP 14; TEMP 37; O2SAT 95
--- NOTE | 2020-03-22 13:46 | NURSING ---
Attempted to notify JERMAINE Roper of updates per her request. No answer to phone call.
[2020-03-22] MEDS: MELATONIN 10 MG TABLET PO (20:50)
[2020-03-22] MEDS: Pramipexole Di-HCl 0.5 MG Tablet PO (20:50)
[2020-03-23] MEDS: Enoxaparin 40 MG/0.4 ML Syringe SC (06:42)
[2020-03-23] MEDS: Polyethylene Glycol 3350 17 GM PACKET PO (06:42)
[2020-03-23] MEDS: Menthol/Lanolin/Calamine/Znox 113 GM Tube 1 APPLIC TOPICAL ×2 (06:42→17:12)
[2020-03-23] MEDS: Senna/Docusate Sodium 1 Tablet PO ×2 (06:43→17:12)
[2020-03-23] MEDS: Lisinopril 20 MG Tablet PO (06:43)
[2020-03-23 06:49] VITALS: BP 126/54; PULSE 81; RESP 18; TEMP 36.8; O2SAT 98
[2020-03-23] MEDS: Iron Polysaccharide Complex 150 MG CAPSULE PO (08:14)
[2020-03-23] MEDS: Ascorbic Acid 500 MG Tablet PO (08:14)
[2020-03-23] MEDS: Aspirin E.C. 81 MG Tablet PO (08:15)
[2020-03-23] MEDS: Pyridoxine HCl 100 MG Tablet PO (08:15)
--- NOTE | 2020-03-23 09:12 | CASEMGMT ---
Social Work BIMS and PHQ-9 completed for MDS assessment. Joana Forte, SALVAGE MECHANIC FISHERMAN HELPER
[2020-03-23] MEDS: Amox/Clavulanate 875 MG Tablet PO (12:09)
--- NOTE | 2020-03-23 13:14 | MDS.RN ---
Pain interview for WILMER 03/24/20 completed.
[2020-03-23 14:05] VITALS: BP 140/67; PULSE 97; RESP 20; TEMP 37.4; O2SAT 97
--- NOTE | 2020-03-23 17:23 | CON.PCM_ITS ---
Problem List (1) Prosthetic joint infection of left hip Status: Acute Reason for Consult: PJI Consulted by: Dr. Bond History of Present Illness: The patient is a 84 year old F with L hip replacement 02/08/20, complicated by drainage and periprosthetic fracture. Readmitted to [facility], taken to OR 03/[address] Roldan for replacement of tibial lorri. Intraop cxs sent. Discharged to TCU on 03/17. 03/19 TCU was called about (+) cx with [facility]. Started on augmentin. Feeling ok, hip healing well, no fever, no n/v/d. Full ROS performed and neg except as noted above. - Medical History Past Medical History (Chronic Problems): Chronic Problems Osteoarthritis of left hip (Chronic) Body mass index (bmi) 31.0-31.9, adult (Chronic) Hypertension (Chronic) Osteopenia (Chronic) Osteoarthritis (Chronic) Restless leg syndrome (Chronic) Hearing loss (Chronic) Hyperparathyroidism (Chronic) Tobacco abuse (Chronic) Allergies/Adverse Reactions: Allergies hydroxychloroquine [From Plaquenil] Allergy (Verified 02/10/20 18:43) NEEDS FOLLOW-UP Home Medications: Ambulatory Orders Medication Instructions Recorded Cholecalciferol (VIT D3) [Vitamin 1,000 unit PO DAILY 02/10/20 D3] Lisinopril [Zestril] 20 mg PO DAILY 02/10/20 Acetaminophen [Tylenol] 1,000 mg PO Q6H PRN PRN tab 02/27/20 Doxycycline 100 mg PO BID #10 cap 02/27/20 Melatonin 10 mg PO QHS tab 02/27/20 Acetaminophen [Tylenol] 2 tab PO Q6H PRN PRN 03/17/20 Ascorbic Acid [Vitamin C] 500 mg PO DAILY 03/17/20 Aspirin E.C. [Ecotrin] 81 mg PO DAILY@79903/17/20 Enoxaparin [Lovenox] 40 mg SUBCUT DAILY@59903/17/20 Iron Polysaccharide Complex 150 mg PO DAILYCM 03/17/20 [Ferrex 150] Polyethylene Glycol 3350 [Miralax] 17 gm PO DAILY 03/17/20 Pramipexole Di-HCl [Mirapex] 0.5 mg PO QHS 03/17/20 Pyridoxine HCl [Vitamin B-6] 100 mg PO DAILY@0803/17/20 - Social History Tobacco Use: cigarettes Vital Signs Temp Pulse Resp BP Pulse Ox 99.4 F H 97 20 H 140/67 H 97 03/23/20 14:05 03/23/20 14:05 03/23/20 14:05 03/23/20 14:05 03/23/20 14:05 Oxygen Delivery Method Room Air Weight: 77.564 kg Body Mass Index (BMI) 32.3 - Other Studies Radiology: [] Other Studies: [] Route of nutrition/ use of supplements: [] Nutritional Intake: [] IV Site: [] Miranda Catheter: [] - Physical Exam General: Alert, Oriented x3, Cooperative, No apparent distress HEENT: Atraumatic, PERRLA, EOMI Neck: Supple, No Nodes Lungs: Clear to auscultation, Normal air movement Cardiovascular: Regular rate, Regular Rhythm, Murmur Abdomen: Soft, Non Tender, Non-Distended Extremities: Edema Skin: Incision - L hip incision, minimal drainage, no redness/induration Musculoskeletal: No Tenderness to Palpation of Joints or Extremities Neurological: Cranial nerves II-XII grossly intact - Assessment/Plan Antibiotics: [] Assessment/Plan: [] Active and Suspected Problems Periprosthetic fracture around internal prosthetic left hip joint (Acute) KARLIE Orr hip PJI - requested cx data sherif [facility]. 2 of 3 intra-op cxs from 03/14/[address] Roldan with Amrit ZIEGLER to augmentin. Will stop augmentin, order picc, start iv vanc for planned 6 week course. Will need weekly bmp, cbc, esr, and vanc trough. After IV course, will need alf po abx; likely doxy. Will follow, thank you, discussed with nursing and her son.
--- NOTE | 2020-03-23 17:44 | NURSING ---
Dr. Feldman here to see patient, N.O. received. Pt and son, Jaydon, updated. estate agent called.
[2020-03-23] MEDS: Pramipexole Di-HCl 0.5 MG Tablet PO (21:15)
[2020-03-23] MEDS: MELATONIN 10 MG TABLET PO (21:15)
[2020-03-24] MEDS: Polyethylene Glycol 3350 17 GM PACKET PO (06:21)
[2020-03-24] MEDS: Lisinopril 20 MG Tablet PO (06:21)
[2020-03-24] MEDS: Enoxaparin 40 MG/0.4 ML Syringe SC (06:21)
[2020-03-24] MEDS: Senna/Docusate Sodium 1 Tablet PO ×2 (06:21→17:26)
[2020-03-24] MEDS: Menthol/Lanolin/Calamine/Znox 113 GM Tube 1 APPLIC TOPICAL ×2 (06:21→17:26)
[2020-03-24 06:30] VITALS: BP 112/68; PULSE 76; RESP 18; TEMP 36.7; O2SAT 97
[2020-03-24] MEDS: Pyridoxine HCl 100 MG Tablet PO (08:26)
[2020-03-24] MEDS: Aspirin E.C. 81 MG Tablet PO (08:26)
[2020-03-24] MEDS: Iron Polysaccharide Complex 150 MG CAPSULE PO (08:26)
[2020-03-24] MEDS: Ascorbic Acid 500 MG Tablet PO (08:26)
--- NOTE | 2020-03-24 13:52 | PCM.RX.CS ---
Consult Pharmacy has been consulted to manage selected antiobiotic: Vancomycin Type of Consult: New start Suspected Infection: Skin/Soft tissue Labs: Sodium 135 mmol/L (136-145) L 03/18/20 06:35 Potassium 4.0 mmol/L (3.5-5.1) 03/18/20 06:35 Chloride 102 mmol/L (98-107) 03/18/20 06:35 Carbon Dioxide 27.0 mmol/L (21.0-32.0) 03/18/20 06:35 Anion Gap 6 (5-15) 03/18/20 06:35 BUN 9 mg/dL (7-18) 03/18/20 06:35 Creatinine 0.48 mg/dL (0.55-1.02) L 03/18/20 06:35 Est GFR (MDRD) Af Amer 160 mL/min (>60) 03/18/20 06:35 Est GFR (MDRD) Non-Af 132 mL/min (>60) 03/18/20 06:35 BUN/Creatinine Ratio 18.9 RATIO (-20) 03/18/20 06:35 Glucose 94 mg/dL (74-106) 03/18/20 06:35 Weight used for dosin.6 kg Estimated Creatinine Clearance: 31ML/MIN Goal Trough: 15-20 mcg/mL Pharmacy Plan for Drug Dosing: PICC is in place so dosing can be started today. Will give initial loading dose of 2000mg IV x1, then continue tomorrow with 1000mg IV q24h. Will order a trough to be drawn before the 3rd dose. Pharmacy Service will continue to monitor and adjust dosing as required. Follow-Up Labs: Trough Vancomycin Labs to be done on [date and time ordered]: 03/26/20 11:30
[2020-03-24] MEDS: 0.9% Saline Lock 10 ML Syringe IV (14:59)
[2020-03-24 15:05] VITALS: PULSE 83; RESP 16; O2SAT 96
[2020-03-24 15:15] VITALS: BP 128/72; PULSE 83; RESP 18; TEMP 36.6; O2SAT 96
[2020-03-24] MEDS: Pramipexole Di-HCl 0.5 MG Tablet PO (20:47)
[2020-03-24] MEDS: MELATONIN 10 MG TABLET PO (20:47)
[2020-03-25 04:00] VITALS: BP 113/35; PULSE 84; RESP 15; TEMP 37.1; O2SAT 95
[2020-03-25] MEDS: 0.9% Saline Lock 10 ML Syringe IV ×2 (05:47→11:58)
[2020-03-25] MEDS: Enoxaparin 40 MG/0.4 ML Syringe SC (05:48)
[2020-03-25] MEDS: Senna/Docusate Sodium 1 Tablet PO ×2 (05:49→17:34)
[2020-03-25] MEDS: Lisinopril 20 MG Tablet PO (05:49)
[2020-03-25] MEDS: Polyethylene Glycol 3350 17 GM PACKET PO (05:49)
[2020-03-25 06:46] LABS: Hematocrit 26.7 % (37-47); Hemoglobin 8.3 g/dL (12.0-15.0); Mean Corp Hgb Conc 31.1 g/dL (32-36); Mean Corpuscular Hgb 30.2 pg (27.0-32.0); Mean Corpuscular Volume 97.1 fL (81-99); Mean Platelet Vol. 8.7 fl (6.2-12.0); POSITIVE COUNT YES; POSITIVE MORPHOLOGY YES; Platelet Count 439 K/mm3 (150-450); RBC Distribution Width SD 56.2 fl (35.1-43.9); Red Blood Count 2.75 M/mm3 (4.2-5.4)
[2020-03-25 06:55] LABS: Anion Gap 6 (5-15); BUN 22 mg/dL (7-18); BUN/Creat Ratio 34.3 RATIO (10-20); Calcium,Total 8.3 mg/dL (8.5-10.1); Chloride 99 mmol/L (98-107); Creatinine, Serum 0.64 mg/dL (0.55-1.02); EST Glomerular Filtration Rate 94 mL/min (>60); Est Glom Filt Rate - Afr Amer 113 mL/min (>60); Estimated Creatinine Clearance 31.04 ml/min; Glucose 131 mg/dL (74-106); Potassium 4.6 mmol/L (3.5-5.1); Sodium Level 130 mmol/L (136-145)
[2020-03-25 06:57] LABS: Differential Indicated MANUAL DIFF
[2020-03-25 07:30] LABS: Basophil 1 % (0-1); Eosinophil 4 % (0-5); Lymphocyte 14 % (19-41); Monocyte 4 % (0-10); Myelocyte 1 (0-0); Neutrophil-Segmented 76 % (47-70); Total Cells Counted 100 (MANUAL DIFF)
[2020-03-25 07:32] LABS: Absolute Lymphocyte Count 1.26 X10^3/uL (0.83-4.51); Absolute Neutrophil Count 6.8 X10^3/uL (2.0-7.7); Platelet Estimate ADEQUATE (ADEQ); Red Cell Morphology NORM C+C NORMAL (NORM C&C)
[2020-03-25] MEDS: Iron Polysaccharide Complex 150 MG CAPSULE PO (08:40)
[2020-03-25] MEDS: Aspirin E.C. 81 MG Tablet PO (08:40)
[2020-03-25] MEDS: Pyridoxine HCl 100 MG Tablet PO (08:41)
[2020-03-25] MEDS: Ascorbic Acid 500 MG Tablet PO (08:41)
[2020-03-25] MEDS: Menthol/Lanolin/Calamine/Znox 113 GM Tube 1 APPLIC TOPICAL ×2 (08:44→17:34)
[2020-03-25] MEDS: Tuberculin,Purif.prot.deriv. 50 TU/ML Vial 5 ML ID (11:56)
[2020-03-25] MEDS: Vancomycin IV 1,000 MG/200 ML BAG 200 MG IV (12:00)
[2020-03-25] MEDS: Bisacodyl 10 MG Suppository RECTAL (13:17)
[2020-03-25 14:43] VITALS: BP 121/51; PULSE 63; RESP 16; TEMP 36.4; O2SAT 98
[2020-03-25] MEDS: MELATONIN 10 MG TABLET PO (20:29)
[2020-03-25] MEDS: Pramipexole Di-HCl 0.5 MG Tablet PO (20:29)
[2020-03-26 06:05] VITALS: BP 110/55; PULSE 81; RESP 18; TEMP 36.3; O2SAT 97
[2020-03-26] MEDS: Menthol/Lanolin/Calamine/Znox 113 GM Tube 1 APPLIC TOPICAL ×2 (06:09→16:42)
[2020-03-26] MEDS: Polyethylene Glycol 3350 17 GM PACKET PO (06:09)
[2020-03-26] MEDS: Senna/Docusate Sodium 1 Tablet PO ×2 (06:11→16:42)
[2020-03-26] MEDS: Lisinopril 20 MG Tablet PO (06:11)
[2020-03-26] MEDS: Enoxaparin 40 MG/0.4 ML Syringe SC (06:13)
[2020-03-26] MEDS: 0.9% Saline Lock 10 ML Syringe IV ×2 (06:18→21:20)
[2020-03-26] MEDS: Ascorbic Acid 500 MG Tablet PO (08:32)
[2020-03-26] MEDS: Pyridoxine HCl 100 MG Tablet PO (08:32)
[2020-03-26] MEDS: Aspirin E.C. 81 MG Tablet PO (08:32)
[2020-03-26] MEDS: Iron Polysaccharide Complex 150 MG CAPSULE PO (08:32)
[2020-03-26 11:24] VITALS: PULSE 97; RESP 20; O2SAT 94
[2020-03-26 12:23] LABS: Pathologist Review Reviewed
[2020-03-26 13:00] LABS: Vancomycin, Trough Level 11.8 ug/mL (5.0-15.0)
[2020-03-26] MEDS: Vancomycin IV 1,000 MG/200 ML BAG 200 MG IV (13:55)
--- NOTE | 2020-03-26 14:21 | PCM.RX.CS ---
Consult Pharmacy has been consulted to manage selected antiobiotic: Vancomycin Type of Consult: Follow-up Suspected Infection: Other Labs: Sodium 130 mmol/L (136-145) L 03/25/20 06:22 Potassium 4.6 mmol/L (3.5-5.1) 03/25/20 06:22 Chloride 99 mmol/L (98-107) 03/25/20 06:22 Carbon Dioxide 25.0 mmol/L (21.0-32.0) 03/25/20 06:22 Anion Gap 6 (5-15) 03/25/20 06:22 BUN 22 mg/dL (7-18) H 03/25/20 06:22 Creatinine 0.64 mg/dL (0.55-1.02) 03/25/20 06:22 Est GFR (MDRD) Af Amer 113 mL/min (>60) 03/25/20 06:22 Est GFR (MDRD) Non-Af 94 mL/min (>60) 03/25/20 06:22 BUN/Creatinine Ratio 34.3 RATIO (10-20) H 03/25/20 06:22 Glucose 131 mg/dL (74-106) H 03/25/20 06:22 Vancomycin Trough 11.8 ug/mL (5.0-15.0) 03/26/20 11:34 Goal Trough: 15-20 mcg/mL Pharmacy Plan for Drug Dosing: VANCOMYCIN LEVEL RECEIVED Current Vancomycin Dose:1000MG Q24H Number of Doses Received:2 + 1 (INITIAL 2GRAM DOSE) Vancomycin Level:11.8 Hours Since Last Dose:23.5 Renal Function:31.04ml/min Renal Function Trend: STABLE Lab/Micro: Vancomycin Plan/Comments: trough goal 15-20. CrCl with adjusted body weight is 60.6. Changed frequency to Q12H per protocol Pending Level: 03/28/20 @1330 prior to 4th dose of new regimen per protocol Pharmacy Service will continue to monitor and adjust dosing as required.
--- NOTE | 2020-03-26 15:05 | PCM.PN.ID ---
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) Subjective: Feeling ok, drainage from hip, no fever, no n/v/d. - Physical Exam Vitals/I&O's: Vital Signs Temp Pulse Resp BP Pulse Ox 97.3 F L 97 20 H 110/55 L 94 03/26/20 06:05 03/26/20 11:24 03/26/20 11:24 03/26/20 06:05 03/26/20 11:24 Oxygen Delivery Method Room Air Weight: 77.564 kg Body Mass Index (BMI) 32.3 Intake and Output for Last 24 Hours 03/24/20 03/25/20 03/26/20 23:59 23:59 23:59 Intake Total 1260 / 1260 1040 / 1040 360 / 360 Output Total 500 / 500 750 / 750 Balance 760 / 760 290 / 290 360 / 360 General: Alert, Cooperative, No apparent distress Cardiovascular: Regular rate, Regular Rhythm Abdomen: Soft, Non Tender, Non-Distended Skin: Incision - bandaged Laboratory Results 03/25/20 06:22: Diff Path Review Reviewed 03/26/20 11:34: Vancomycin Trough 11.8 Current Medications Acetaminophen (Tylenol) 1,000 mg PO Q6H PRN PRN PRN Reason: Pain Score 1-3/10 Last Admin: 03/21/20 06:37 Dose: 1,000 mg Documented by: Ascorbic Acid (Vitamin C) 500 mg PO DAILY@0800 [facility] Last Admin: 03/26/20 08:32 Dose: 500 mg Documented by: Aspirin (Ecotrin) 81 mg PO DAILY@0800 [facility] Last Admin: 03/26/20 08:32 Dose: 81 mg Documented by: Bisacodyl (Dulcolax) 10 mg RECTAL DAILY PRN PRN Reason: Constipation Last Admin: 03/25/20 13:17 Dose: 10 mg Documented by: Calamine/Phenol (Calmoseptine Ointment) 1 applic TOPICAL BID [facility]; Protocol Last Admin: 03/26/20 06:09 Dose: 1 applicatio Documented by: Cholecalciferol (Vitamin D (25mcg)) 1,000 unit PO DAILY [facility] Last Admin: 03/26/20 06:11 Dose: 1,000 unit Documented by: Enoxaparin Sodium (Lovenox) 40 mg SC DAILY@0600 [facility] Stop: 03/29/20 22:00 Last Admin: 03/26/20 06:13 Dose: 40 mg Documented by: Heparin Sodium (Beef Lung) () 50 units IV UD PRN PRN Reason: PICC Line Heparin Flush Hydrocortisone (Hytone) 1 applic TOPICAL BID PRN PRN; Protocol PRN Reason: ITCHING Vancomycin IV Pharmacy to Dose (1 ea/ Sodium Chloride) 500 mls @ 250 mls/hr IV X1 PRN; Protocol PRN Reason: Rx to Dose Sodium Chloride () 250 mls @ 15 mls/hr IV .[id number] PRN PRN Reason: Saline Flush Sodium Chloride () 250 mls @ 15 mls/hr IV .[id number] PRN PRN Reason: Additional IVPB Infusion Vancomycin HCl (Vancomycin) 1,000 mg in 200 mls @ 200 mls/hr IV Q12H [facility] Lisinopril (Zestril) 20 mg PO DAILY [facility] Last Admin: 03/26/20 06:11 Dose: 20 mg Documented by: Melatonin (Melatonin) 10 mg PO QHS [facility] Last Admin: 03/25/20 20:29 Dose: 10 mg Documented by: Oxycodone HCl (Oxyir) 2.5 mg PO Q4H PRN PRN PRN Reason: Pain Score 4-10/10 Polyethylene Glycol (Miralax) 17 gm PO DAILY [facility] Last Admin: 03/26/20 06:09 Dose: 17 gm Documented by: Polysaccharide [facility] ([facility]rex 150) [facility] Admin: 03/26/20 08:32 Dose: 150 mg Documented by: Pramipexole Dihydrochloride (Mirapex) 0.5 mg PO QHS [facility] Last Admin: 03/25/20 20:29 Dose: 0.5 mg Documented by: Pyridoxine HCl (Vitamin B-6) 100 mg PO DAILY@0800 [facility] Last Admin: 03/26/20 08:32 Dose: 100 mg Documented by: Senna/Docusate Sodium (Senokot-S, Leah-Colace) 1 tablet PO BID [facility] Last Admin: 03/26/20 06:11 Dose: 1 tablet Documented by: Sodium Chloride () 10 - 40 ml IV UD PRN PRN Reason: Open End PICC Flush Last Admin: 03/26/20 06:18 Dose: 10 ml Documented by: Sodium Chloride (0.9% Nacl (Sterile) Posiflush) 10 - 40 ml IV UD PRN PRN Reason: Port access or dressing change Medical Necessity - Tobacco Use Smoking Status: Current some day smoker Tobacco Use: Cigarettes Route of nutrition/ use of supplements: [] Nutritional Intake: [] IV Site: [] Miranda Catheter: [] - Assessment/Plan Antibiotics: [] Assessment/Plan: [] Active and Suspected Problems Periprosthetic fracture around internal prosthetic left hip joint (Acute) KARLIE Orr hip PJI - requested cx data fro [facility]. 2 of 3 intra-op cxs from 03/14/[address] Roldan with Amrit ZIEGLER to augmentin. On iv vanc for planned 6 week course. Weekly bmp, cbc, esr, and vanc trough. After IV course, will need [facility] po abx; likely doxy. Will follow
[2020-03-26 15:36] VITALS: BP 146/78; PULSE 97; RESP 20; TEMP 37.2; O2SAT 94
[2020-03-26] MEDS: MELATONIN 10 MG TABLET PO (21:20)
[2020-03-26] MEDS: Pramipexole Di-HCl 0.5 MG Tablet PO (21:20)
[2020-03-27 02:01] VITALS: BP 116/58; PULSE 82; RESP 18; TEMP 36.7; O2SAT 94
[2020-03-27] MEDS: Vancomycin IV 1,000 MG/200 ML BAG 200 MG IV ×2 (02:03→15:57)
[2020-03-27] MEDS: 0.9% Saline Lock 10 ML Syringe IV ×2 (02:04→15:57)
[2020-03-27] MEDS: Polyethylene Glycol 3350 17 GM PACKET PO (06:25)
[2020-03-27] MEDS: Senna/Docusate Sodium 1 Tablet PO (06:26)
[2020-03-27] MEDS: Lisinopril 20 MG Tablet PO (06:26)
[2020-03-27] MEDS: Enoxaparin 40 MG/0.4 ML Syringe SC (06:26)
[2020-03-27] MEDS: Menthol/Lanolin/Calamine/Znox 113 GM Tube 1 APPLIC TOPICAL ×2 (06:27→17:08)
[2020-03-27] MEDS: Iron Polysaccharide Complex 150 MG CAPSULE PO (08:41)
[2020-03-27] MEDS: Pyridoxine HCl 100 MG Tablet PO (08:41)
[2020-03-27] MEDS: Ascorbic Acid 500 MG Tablet PO (08:41)
[2020-03-27] MEDS: Aspirin E.C. 81 MG Tablet PO (08:41)
--- NOTE | 2020-03-27 09:59 | CASEMGMT ---
Social Work Spoke with pt's JERMAINE to follow-up on resources and discharge planning. Inquired if JERMAINE contacted any nonskilled [facility] agencies. JERMAINE did not, and feels the two agencies currently in place are enough for pt at home. She stated she cannot make any further arrangements until pt is ready to DC and sees what assistance she really needs. JERMAINE expressed her frustration with the insurance company not understanding COVID precautions are not allowing pt to fully participate in therapy due to 14 day in room isolation, and that walking 40 ft is not enough for pt to DC home. JERMAINE continued to explain pt should be able to DC home at [facility] with the aides in place and son in the home and insurance should allow for that to happen. JERMAINE stated pt has step to get into shower and needs to be able to do that prior to DC. Provided supportive listening to JERMAINE's frustrations. Explained IDT continues to advocate for pt, but unfortunately, we do not have control over the insurance and [facility]/CDC regulations. Empathized with JERMAINE's frustrations and assured IDT is advocating for pt. Explained that is also the reason for the follow up call to ensure SW is providing assistance for a safe DC. JERMAINE stated will appeal the insurance decision again if pt is not given the opportunity to work with therapy outside of her room. She does understand after's pt's Drs appt on this date her 14 days restart. JERMAINE is hoping for pt to receive change in WBS. Updated therapy with JERMAINE's concerns and goals for DC. Will continue to follow. NRD 03/28. SANDEE Maldonado
[2020-03-27] MEDS: oxyCODONE 5 MG Tablet 2.5 MG PO (11:45)
[2020-03-27] MEDS: Acetaminophen 500 MG Tablet 1000 MG PO (11:46)
[2020-03-27 15:51] VITALS: BP 126/50; PULSE 69; RESP 16; TEMP 36.4; O2SAT 98
--- NOTE | 2020-03-27 17:40 | NURSING ---
pt back from appt with emesis all over gown and paperwork from dr. monk. stated, i never get car sick so i dont know what happened but i feel crummy up to bsc and lg formed bm with void. resting in bed with call light within reach.
--- NOTE | 2020-03-27 18:37 | NURSING ---
pt resfused supper tray and wanting to just rest. denies any nausea meds at this time
--- NOTE | 2020-03-27 20:20 | NURSING ---
Patient's son Jaydon called and updated on patient's appointment and new orders and that patient is to continue with Strict Touch down weight bearing to left leg.
[2020-03-27] MEDS: Pramipexole Di-HCl 0.5 MG Tablet PO (21:08)
[2020-03-27] MEDS: MELATONIN 10 MG TABLET PO (21:08)
[2020-03-28] MEDS: Vancomycin IV 1,000 MG/200 ML BAG 200 MG IV (01:55)
[2020-03-28] MEDS: 0.9% Saline Lock 10 ML Syringe IV (02:02)
[2020-03-28 06:23] VITALS: BP 121/58; PULSE 81; RESP 16; TEMP 36.5; O2SAT 96
[2020-03-28] MEDS: Menthol/Lanolin/Calamine/Znox 113 GM Tube 1 APPLIC TOPICAL ×2 (06:26→17:19)
[2020-03-28] MEDS: Lisinopril 20 MG Tablet PO (06:27)
[2020-03-28] MEDS: Pyridoxine HCl 100 MG Tablet PO (08:05)
[2020-03-28] MEDS: Ascorbic Acid 500 MG Tablet PO (08:05)
[2020-03-28] MEDS: Aspirin E.C. 81 MG Tablet PO (08:05)
[2020-03-28] MEDS: Iron Polysaccharide Complex 150 MG CAPSULE PO (08:06)
[2020-03-28 12:52] VITALS: PULSE 93; RESP 18; O2SAT 96
[2020-03-28 14:10] LABS: Vancomycin, Trough Level 23.8 ug/mL (5.0-15.0)
--- NOTE | 2020-03-28 14:38 | NURSING ---
Contacted Dr. Laguna's office about F/U with his PA, Isaac Vieira in 3 weeks. Patient already had appointment scheduled for 04/13/20 at 2pm with ELOINA Murillo. His office stated the patient could just keep the appointment as is.
--- NOTE | 2020-03-28 14:41 | NURSING ---
Spoke with Pharmacist Naresh, received order to non-administer the Vancomycin d/t the trough level of 23.9. Pharmacy will add another trough for tomorrow.
--- NOTE | 2020-03-28 14:42 | NURSING ---
Radio Repairer Domestic Note: Facetime call with resident and SECURITY OPERATIONS SPECIALIST/MOTTA to son and daughter in law. Family appreciative at being able to observe how resident transfers. SECURITY OPERATIONS SPECIALIST/ MOTTA providing education regarding current functioning and goals. Res mood positive, thankful for the call.
--- NOTE | 2020-03-28 14:51 | PCM.RX.CS ---
Consult Pharmacy has been consulted to manage selected antiobiotic: Vancomycin Suspected Infection: Other Labs: Sodium 130 mmol/L (136-145) L 03/25/20 06:22 Potassium 4.6 mmol/L (3.5-5.1) 03/25/20 06:22 Chloride 99 mmol/L (98-107) 03/25/20 06:22 Carbon Dioxide 25.0 mmol/L (21.0-32.0) 03/25/20 06:22 Anion Gap 6 (5-15) 03/25/20 06:22 BUN 22 mg/dL (7-18) H 03/25/20 06:22 Creatinine 0.64 mg/dL (0.55-1.02) 03/25/20 06:22 Est GFR (MDRD) Af Amer 113 mL/min (>60) 03/25/20 06:22 Est GFR (MDRD) Non-Af 94 mL/min (>60) 03/25/20 06:22 BUN/Creatinine Ratio 34.3 RATIO (10-20) H 03/25/20 06:22 Glucose 131 mg/dL (74-106) H 03/25/20 06:22 Vancomycin Trough 23.8 ug/mL (5.0-15.0) H 03/28/20 13:05 Goal Trough: 15-20 mcg/mL Pharmacy Plan for Drug Dosing: VANCOMYCIN LEVEL RECEIVED Current Vancomycin Dose: 1000mg q12h Number of Doses Received: 3 of current dose Vancomycin Level: 23.8 Hours Since Last Dose: ~11 Renal Function: 0.64 Renal Function Trend: srcr slowly increasing (?) Lab/Micro: Vancomycin Plan/Comments: recommend holding current dose of Vancomcyin. Draw a random level 03/29 @ 1300 (24 hours from previous draw). Will redose based on that level. Pending Level:03/29/20 @ 1300 Pharmacy Service will continue to monitor and adjust dosing as required. Follow-Up Labs: Trough Vancomycin - 03/29 @ 1299
[2020-03-28 15:15] VITALS: BP 134/72; PULSE 93; RESP 18; TEMP 36.6; O2SAT 96
--- NOTE | 2020-03-28 15:15 | CASEMGMT ---
Social Work Spoke with dtr that insurance approved pt with NRD 04/04 and inquired if anyone at DC could administer IVs. Son whom lives in town works full-time and could not administer. Pt's other son and dtr whom is a nurse, live out of town and could not administer either. Pt cannot self-administer. Will continue to follow. Joana Forte, HIGHWAY ADMINISTRATIVE ENGINEER COMMUNICATION SKILLS INSTRUCTOR
[2020-03-28] MEDS: Senna/Docusate Sodium 1 Tablet PO (17:18)
[2020-03-28] MEDS: Pramipexole Di-HCl 0.5 MG Tablet PO (21:11)
[2020-03-28] MEDS: MELATONIN 10 MG TABLET PO (21:11)
[2020-03-29 06:04] VITALS: BP 120/42; PULSE 76; RESP 16; TEMP 36.5; O2SAT 97
[2020-03-29] MEDS: Menthol/Lanolin/Calamine/Znox 113 GM Tube 1 APPLIC TOPICAL ×2 (06:07→17:06)
[2020-03-29] MEDS: Lisinopril 20 MG Tablet PO (06:08)
[2020-03-29] MEDS: Senna/Docusate Sodium 1 Tablet PO ×2 (06:08→17:06)
[2020-03-29] MEDS: Polyethylene Glycol 3350 17 GM PACKET PO (06:08)
[2020-03-29] MEDS: Pyridoxine HCl 100 MG Tablet PO (08:25)
[2020-03-29] MEDS: Ascorbic Acid 500 MG Tablet PO (08:25)
[2020-03-29] MEDS: Aspirin E.C. 81 MG Tablet PO (08:25)
[2020-03-29] MEDS: Iron Polysaccharide Complex 150 MG CAPSULE PO (08:25)
--- NOTE | 2020-03-29 12:05 | MDS.RN ---
Information for the mds was obtained from review of the clinical record, interview of resident, staff, and direct observation of resident's care.
[2020-03-29 13:39] LABS: Vancomycin, Random Level 14.7 ug/mL (0.0-15.0)
[2020-03-29 14:26] VITALS: BP 130/72; PULSE 92; RESP 18; TEMP 36.6; O2SAT 96
--- NOTE | 2020-03-29 15:06 | PCM.RX.CS ---
Consult Pharmacy has been consulted to manage selected antiobiotic: Vancomycin Type of Consult: Follow-up Suspected Infection: Other Labs: Sodium 130 mmol/L (136-145) L 03/25/20 06:22 Potassium 4.6 mmol/L (3.5-5.1) 03/25/20 06:22 Chloride 99 mmol/L (98-107) 03/25/20 06:22 Carbon Dioxide 25.0 mmol/L (21.0-32.0) 03/25/20 06:22 Anion Gap 6 (5-15) 03/25/20 06:22 BUN 22 mg/dL (7-18) H 03/25/20 06:22 Creatinine 0.64 mg/dL (0.55-1.02) 03/25/20 06:22 Est GFR (MDRD) Af Amer 113 mL/min (>60) 03/25/20 06:22 Est GFR (MDRD) Non-Af 94 mL/min (>60) 03/25/20 06:22 BUN/Creatinine Ratio 34.3 RATIO (10-20) H 03/25/20 06:22 Glucose 131 mg/dL (74-106) H 03/25/20 06:22 Vancomycin Trough 23.8 ug/mL (5.0-15.0) H 03/28/20 13:05 Random Vancomycin 14.7 ug/mL (0.0-15.0) 03/29/20 12:55 Pharmacy Plan for Drug Dosing: VANCOMYCIN LEVEL RECEIVED Current Vancomycin Dose: current dose held, past dose was 1000mg q12h Number of Doses Received: 0 Vancomycin Level: random level 14.7 (24 hours since trough of 23.8) Hours Since Last Dose: 48 Renal Function: 0.64 (no new level), round up to 0.8 due to pt age Renal Function Trend: stable (?) Lab/Micro: Vancomycin Plan/Comments: will restart Vancomycin at 1250mg q24h. per clinical pharmacology, est trough is to be ~ 17 Pending Level: 03/31 @ 1630 Pharmacy Service will continue to monitor and adjust dosing as required. Follow-Up Labs: Trough Vancomycin - 03/31 @ 1630
[2020-03-29] MEDS: 0.9% Saline Lock 10 ML Syringe IV (17:07)
[2020-03-29] MEDS: MELATONIN 10 MG TABLET PO (20:02)
[2020-03-29] MEDS: Pramipexole Di-HCl 0.5 MG Tablet PO (20:02)
--- NOTE | 2020-03-29 22:37 | NURSING ---
DSD TO LLE CHANGED D/T MOD AMT OF DRAINAGE.
[2020-03-30] MEDS: Lisinopril 20 MG Tablet PO (06:10)
[2020-03-30] MEDS: Senna/Docusate Sodium 1 Tablet PO ×2 (06:11→17:16)
[2020-03-30] MEDS: Menthol/Lanolin/Calamine/Znox 113 GM Tube 1 APPLIC TOPICAL ×2 (06:11→17:16)
[2020-03-30] MEDS: Polyethylene Glycol 3350 17 GM PACKET PO (06:11)
[2020-03-30 06:17] VITALS: BP 122/73; PULSE 79; RESP 18; TEMP 36.4; O2SAT 98
[2020-03-30] MEDS: Aspirin E.C. 81 MG Tablet PO (07:59)
[2020-03-30] MEDS: Iron Polysaccharide Complex 150 MG CAPSULE PO (07:59)
[2020-03-30] MEDS: Pyridoxine HCl 100 MG Tablet PO (07:59)
[2020-03-30] MEDS: Ascorbic Acid 500 MG Tablet PO (07:59)
[2020-03-30 14:03] VITALS: BP 125/49; PULSE 81; RESP 18; TEMP 36.7; O2SAT 97
[2020-03-30] MEDS: 0.9% Saline Lock 10 ML Syringe IV ×2 (17:07→21:41)
[2020-03-30] MEDS: MELATONIN 10 MG TABLET PO (21:40)
[2020-03-30] MEDS: Pramipexole Di-HCl 0.5 MG Tablet PO (21:40)
[2020-03-31 06:17] VITALS: BP 120/77; PULSE 81; RESP 18; TEMP 36.6; O2SAT 95
[2020-03-31] MEDS: Lisinopril 20 MG Tablet PO (06:19)
[2020-03-31] MEDS: Senna/Docusate Sodium 1 Tablet PO ×2 (06:19→16:49)
[2020-03-31] MEDS: Polyethylene Glycol 3350 17 GM PACKET PO (06:19)
[2020-03-31] MEDS: Menthol/Lanolin/Calamine/Znox 113 GM Tube 1 APPLIC TOPICAL ×2 (06:24→16:49)
[2020-03-31] MEDS: Ascorbic Acid 500 MG Tablet PO (08:21)
[2020-03-31] MEDS: Iron Polysaccharide Complex 150 MG CAPSULE PO (08:21)
[2020-03-31] MEDS: Pyridoxine HCl 100 MG Tablet PO (08:21)
[2020-03-31] MEDS: Aspirin E.C. 81 MG Tablet PO (08:21)
[2020-03-31 11:55] VITALS: PULSE 81; RESP 18; O2SAT 94
[2020-03-31 16:00] VITALS: BP 136/74; PULSE 81; RESP 16; TEMP 36.8; O2SAT 94
[2020-03-31 16:58] LABS: Vancomycin, Trough Level 15.7 ug/mL (5.0-15.0)
[2020-03-31] MEDS: 0.9% Saline Lock 10 ML Syringe IV (17:33)
--- NOTE | 2020-03-31 18:00 | PCM.RX.CS ---
Consult Pharmacy has been consulted to manage selected antiobiotic: Vancomycin Type of Consult: Follow-up Labs: Sodium 130 mmol/L (136-145) L 03/25/20 06:22 Potassium 4.6 mmol/L (3.5-5.1) 03/25/20 06:22 Chloride 99 mmol/L (98-107) 03/25/20 06:22 Carbon Dioxide 25.0 mmol/L (21.0-32.0) 03/25/20 06:22 Anion Gap 6 (5-15) 03/25/20 06:22 BUN 22 mg/dL (7-18) H 03/25/20 06:22 Creatinine 0.64 mg/dL (0.55-1.02) 03/25/20 06:22 Est GFR (MDRD) Af Amer 113 mL/min (>60) 03/25/20 06:22 Est GFR (MDRD) Non-Af 94 mL/min (>60) 03/25/20 06:22 BUN/Creatinine Ratio 34.3 RATIO (10-20) H 03/25/20 06:22 Glucose 131 mg/dL (74-106) H 03/25/20 06:22 Vancomycin Trough 15.7 ug/mL (5.0-15.0) H 03/31/20 16:30 Random Vancomycin 14.7 ug/mL (0.0-15.0) 03/29/20 12:55 Goal Trough: 15-20 mcg/mL Pharmacy Plan for Drug Dosing: VANCOMYCIN LEVEL RECEIVED Current Vancomycin Dose: 1250mg IV Q24hr Number of Doses Received: 3 Vancomycin Level: 15.7 Hours Since Last Dose: 23.5hr Renal Function: no new labs Renal Function Trend: no new labs Lab/Micro: no new Vancomycin Plan/Comments: trough goal 15-20, level resulted in a value of 15.7 (~23.5hr from last administered dose). Trough within goal range, will continue current dose and check trough in another 4 days. Pending Level: 04/04/20 @1630 Pharmacy Service will continue to monitor and adjust dosing as required.
[2020-03-31] MEDS: Pramipexole Di-HCl 0.5 MG Tablet PO (22:04)
[2020-03-31] MEDS: MELATONIN 10 MG TABLET PO (22:04)
[2020-04-01] MEDS: Lisinopril 20 MG Tablet PO (06:15)
[2020-04-01] MEDS: Senna/Docusate Sodium 1 Tablet PO ×2 (06:15→17:07)
[2020-04-01] MEDS: Polyethylene Glycol 3350 17 GM PACKET PO (06:16)
[2020-04-01] MEDS: Menthol/Lanolin/Calamine/Znox 113 GM Tube 1 APPLIC TOPICAL ×2 (06:16→17:07)
[2020-04-01 06:22] VITALS: BP 111/67; PULSE 77; RESP 16; TEMP 36.9; O2SAT 95
[2020-04-01 06:50] LABS: Absolute Lymphocyte Count 1.21 X10^3/uL (0.83-4.51); Absolute Neutrophil Count 3.8 X10^3/uL (2.0-7.7); Basophil# 0.09 X10^3/uL; Basophil% 1.4 % (0-1); Eosinophils% 9.4 % (0-5); Hematocrit 26.9 % (37-47); Hemoglobin 8.5 g/dL (12.0-15.0); Lymphocyte # 1.21 X10^3/ul (4.0); Lymphocyte % 19.1 % (19-41); Mean Corp Hgb Conc 31.6 g/dL (32-36); Mean Corpuscular Hgb 30.8 pg (27.0-32.0); Mean Corpuscular Volume 97.5 fL (81-99); Mean Platelet Vol. 8.4 fl (6.2-12.0); Monocyte# 0.51 X10^3/uL; NRBC Flagged by Analyzer 0 % (0-5); Neutrophil # 3.76 X10^3/uL (2.7-7.7); Neutrophil % 59.3 % (47-70); Platelet Count 330 K/mm3 (150-450); RBC Distribution Width CV 16.6 % (11.6-14.6); RBC Distribution Width SD 57.7 fl (35.1-43.9); Red Blood Count 2.76 M/mm3 (4.2-5.4); White Blood Count 6.4 K/mm3 (4.4-11.0)
[2020-04-01 07:12] LABS: Anion Gap 4 (5-15); BUN 14 mg/dL (7-18); BUN/Creat Ratio 22.4 RATIO (10-20); Calcium,Total 8.2 mg/dL (8.5-10.1); Chloride 104 mmol/L (98-107); Creatinine, Serum 0.62 mg/dL (0.55-1.02); EST Glomerular Filtration Rate 96 mL/min (>60); Est Glom Filt Rate - Afr Amer 117 mL/min (>60); Estimated Creatinine Clearance 31.04 ml/min; Glucose 117 mg/dL (74-106); Sodium Level 134 mmol/L (136-145)
[2020-04-01] MEDS: Iron Polysaccharide Complex 150 MG CAPSULE PO (07:50)
[2020-04-01] MEDS: Aspirin E.C. 81 MG Tablet PO (07:50)
[2020-04-01] MEDS: Pyridoxine HCl 100 MG Tablet PO (07:50)
[2020-04-01] MEDS: Ascorbic Acid 500 MG Tablet PO (07:50)
[2020-04-01 13:17] VITALS: PULSE 85; RESP 18; O2SAT 97
[2020-04-01 14:09] VITALS: BP 144/82; PULSE 85; RESP 18; TEMP 36.6; O2SAT 97
[2020-04-01] MEDS: 0.9% Saline Lock 10 ML Syringe IV (17:01)
[2020-04-01] MEDS: Pramipexole Di-HCl 0.5 MG Tablet PO (20:37)
[2020-04-01] MEDS: MELATONIN 10 MG TABLET PO (20:43)
[2020-04-02 04:00] VITALS: BP 133/74; PULSE 80; RESP 18; TEMP 36.1; O2SAT 96
[2020-04-02] MEDS: Polyethylene Glycol 3350 17 GM PACKET PO (05:52)
[2020-04-02] MEDS: Senna/Docusate Sodium 1 Tablet PO ×2 (05:52→16:45)
[2020-04-02] MEDS: Lisinopril 20 MG Tablet PO (05:52)
[2020-04-02] MEDS: Menthol/Lanolin/Calamine/Znox 113 GM Tube 1 APPLIC TOPICAL ×2 (05:54→16:45)
[2020-04-02] MEDS: Iron Polysaccharide Complex 150 MG CAPSULE PO (08:27)
[2020-04-02] MEDS: Pyridoxine HCl 100 MG Tablet PO (08:27)
[2020-04-02] MEDS: Ascorbic Acid 500 MG Tablet PO (08:27)
[2020-04-02] MEDS: Aspirin E.C. 81 MG Tablet PO (08:27)
[2020-04-02 14:29] VITALS: BP 114/66; PULSE 88; RESP 16; TEMP 36; O2SAT 98
[2020-04-02] MEDS: 0.9% Saline Lock 10 ML Syringe IV (16:54)
[2020-04-02] MEDS: Pramipexole Di-HCl 0.5 MG Tablet PO (21:35)
[2020-04-02] MEDS: MELATONIN 10 MG TABLET PO (21:35)
[2020-04-03 06:25] VITALS: BP 122/79; PULSE 76; RESP 18; TEMP 36.9; O2SAT 98
[2020-04-03] MEDS: Polyethylene Glycol 3350 17 GM PACKET PO (06:28)
[2020-04-03] MEDS: Lisinopril 20 MG Tablet PO (06:29)
[2020-04-03] MEDS: Senna/Docusate Sodium 1 Tablet PO ×2 (06:29→16:36)
[2020-04-03] MEDS: 0.9% Saline Lock 10 ML Syringe IV ×2 (06:29→16:37)
[2020-04-03] MEDS: Menthol/Lanolin/Calamine/Znox 113 GM Tube 1 APPLIC TOPICAL ×2 (06:30→16:36)
[2020-04-03] MEDS: Ascorbic Acid 500 MG Tablet PO (08:19)
[2020-04-03] MEDS: Aspirin E.C. 81 MG Tablet PO (08:19)
[2020-04-03] MEDS: Pyridoxine HCl 100 MG Tablet PO (08:19)
[2020-04-03] MEDS: Iron Polysaccharide Complex 150 MG CAPSULE PO (08:19)
[2020-04-03 13:51] VITALS: BP 110/58; PULSE 80; RESP 16; TEMP 36.8; O2SAT 98
[2020-04-03] MEDS: MELATONIN 10 MG TABLET PO (21:07)
[2020-04-03] MEDS: Pramipexole Di-HCl 0.5 MG Tablet PO (21:07)
[2020-04-04 06:12] VITALS: BP 128/69; PULSE 77; RESP 18; TEMP 36.7; O2SAT 98
[2020-04-04] MEDS: 0.9% Saline Lock 10 ML Syringe IV ×2 (06:20→16:42)
[2020-04-04] MEDS: Polyethylene Glycol 3350 17 GM PACKET PO (06:21)
[2020-04-04] MEDS: Senna/Docusate Sodium 1 Tablet PO ×2 (06:22→16:48)
[2020-04-04] MEDS: Menthol/Lanolin/Calamine/Znox 113 GM Tube 1 APPLIC TOPICAL ×2 (06:22→16:47)
[2020-04-04] MEDS: Lisinopril 20 MG Tablet PO (06:22)
[2020-04-04] MEDS: Pyridoxine HCl 100 MG Tablet PO (08:24)
[2020-04-04] MEDS: Ascorbic Acid 500 MG Tablet PO (08:24)
[2020-04-04] MEDS: Aspirin E.C. 81 MG Tablet PO (08:24)
[2020-04-04] MEDS: Iron Polysaccharide Complex 150 MG CAPSULE PO (08:24)
[2020-04-04 13:52] VITALS: BP 141/71; PULSE 94; RESP 14; TEMP 36.8; O2SAT 97
[2020-04-04 17:25] LABS: Vancomycin, Trough Level 15.6 ug/mL (5.0-15.0)
--- NOTE | 2020-04-04 18:55 | CASEMGMT ---
Social Work Left message with son Jaydon with insurance approval NRD 04/10 and to discuss private pay options as pt has used 38/100 skilled benefit days. F/u appt is 04/13 and will get another xray. Will continue to follow. SANDEE Maldonado
--- NOTE | 2020-04-04 19:21 | PCM.RX.CS ---
Consult Pharmacy has been consulted to manage selected antiobiotic: Vancomycin Type of Consult: Follow-up Labs: Sodium 134 mmol/L (136-145) L 04/01/20 06:45 Potassium 4.0 mmol/L (3.5-5.1) 04/01/20 06:45 Chloride 104 mmol/L (98-107) 04/01/20 06:45 Carbon Dioxide 26.0 mmol/L (21.0-32.0) 04/01/20 06:45 Anion Gap 4 (5-15) L 04/01/20 06:45 BUN 14 mg/dL (7-18) 04/01/20 06:45 Creatinine 0.62 mg/dL (0.55-1.02) 04/01/20 06:45 Est GFR (MDRD) Af Amer 117 mL/min (>60) 04/01/20 06:45 Est GFR (MDRD) Non-Af 96 mL/min (>60) 04/01/20 06:45 BUN/Creatinine Ratio 22.4 RATIO (10-20) H 04/01/20 06:45 Glucose 117 mg/dL (74-106) H 04/01/20 06:45 Vancomycin Trough 15.6 ug/mL (5.0-15.0) H 04/04/20 16:30 Random Vancomycin 14.7 ug/mL (0.0-15.0) 03/29/20 12:55 Goal Trough: 15-20 mcg/mL Pharmacy Plan for Drug Dosing: VANCOMYCIN LEVEL RECEIVED Current Vancomycin Dose: 1250MG IV Q24hr Number of Doses Received: 7 Vancomycin Level: 15.6 Hours Since Last Dose: ~24hr Renal Function: 0.62 Renal Function Trend: stable Lab/Micro: no new results Vancomycin Plan/Comments: Patient trough within goal range of 15-20. Will continue current dose and draw another trough in 4 days to assess dosing Pending Level: 04/08/20 @1630 Pharmacy Service will continue to monitor and adjust dosing as required.
[2020-04-04] MEDS: MELATONIN 10 MG TABLET PO (21:00)
[2020-04-04] MEDS: Pramipexole Di-HCl 0.5 MG Tablet PO (21:00)
[2020-04-05 06:01] VITALS: BP 143/67; PULSE 78; RESP 16; TEMP 36.5; O2SAT 98
[2020-04-05] MEDS: Lisinopril 20 MG Tablet PO (06:03)
[2020-04-05] MEDS: Menthol/Lanolin/Calamine/Znox 113 GM Tube 1 APPLIC TOPICAL ×2 (06:03→17:06)
[2020-04-05] MEDS: Polyethylene Glycol 3350 17 GM PACKET PO (06:03)
[2020-04-05] MEDS: Ascorbic Acid 500 MG Tablet PO (08:22)
[2020-04-05] MEDS: Aspirin E.C. 81 MG Tablet PO (08:22)
[2020-04-05] MEDS: Pyridoxine HCl 100 MG Tablet PO (08:22)
[2020-04-05] MEDS: Iron Polysaccharide Complex 150 MG CAPSULE PO (08:22)
--- NOTE | 2020-04-05 11:57 | CASEMGMT ---
Social Work Spoke with patient's son Jaydon at length about NRD 04/10, continued stay is not guaranteed. Discussed patient will be out of isolation 04/10, but has f/u drs appt 04/13 and will begin 14 day isolation again. If pt does not receive increase in WBS, insurance may issue DC date in which a DC plan needs to be in place. Explained the Medicare benefit of 100 skilled days per 60 day break in services. Pt is on day and explained using those days wisely. Discussed options of paying privately in TCU, pay privately at another SNF or returning home. Son expressed understanding. Emailed list of SNFs and asked to pick a few for SW to refer to and get pricing. Will continue to follow. SANDEE Maldonado SALESPERSON [employer]
[2020-04-05 14:26] VITALS: BP 114/69; PULSE 100; RESP 16; TEMP 37.2; O2SAT 98
[2020-04-05] MEDS: Senna/Docusate Sodium 1 Tablet PO (17:05)
[2020-04-05] MEDS: 0.9% Saline Lock 10 ML Syringe IV (17:06)
[2020-04-05] MEDS: MELATONIN 10 MG TABLET PO (20:11)
[2020-04-05] MEDS: Pramipexole Di-HCl 0.5 MG Tablet PO (20:12)
[2020-04-06 06:44] VITALS: BP 108/43; PULSE 71; RESP 16; TEMP 36.8; O2SAT 97
[2020-04-06] MEDS: Senna/Docusate Sodium 1 Tablet PO ×2 (06:46→16:46)
[2020-04-06] MEDS: Lisinopril 20 MG Tablet PO (06:46)
[2020-04-06] MEDS: Polyethylene Glycol 3350 17 GM PACKET PO (06:46)
[2020-04-06] MEDS: Menthol/Lanolin/Calamine/Znox 113 GM Tube 1 APPLIC TOPICAL ×2 (06:46→16:47)
[2020-04-06] MEDS: Iron Polysaccharide Complex 150 MG CAPSULE PO (07:57)
[2020-04-06] MEDS: Aspirin E.C. 81 MG Tablet PO (07:57)
[2020-04-06] MEDS: Pyridoxine HCl 100 MG Tablet PO (07:57)
[2020-04-06] MEDS: Ascorbic Acid 500 MG Tablet PO (07:57)
[2020-04-06 09:49] VITALS: PULSE 83; RESP 18; O2SAT 94
[2020-04-06 13:24] VITALS: BP 126/70; PULSE 83; RESP 18; TEMP 36.7; O2SAT 94
[2020-04-06] MEDS: MELATONIN 10 MG TABLET PO (21:01)
[2020-04-06] MEDS: Pramipexole Di-HCl 0.5 MG Tablet PO (21:01)
[2020-04-07 04:00] VITALS: BP 114/61; PULSE 68; RESP 16; TEMP 37; O2SAT 98
[2020-04-07] MEDS: Menthol/Lanolin/Calamine/Znox 113 GM Tube 1 APPLIC TOPICAL ×2 (05:17→17:14)
[2020-04-07] MEDS: Polyethylene Glycol 3350 17 GM PACKET PO (05:17)
[2020-04-07] MEDS: Senna/Docusate Sodium 1 Tablet PO ×2 (05:17→17:14)
[2020-04-07] MEDS: Lisinopril 20 MG Tablet PO (05:18)
[2020-04-07] MEDS: Ascorbic Acid 500 MG Tablet PO (08:27)
[2020-04-07] MEDS: Iron Polysaccharide Complex 150 MG CAPSULE PO (08:27)
[2020-04-07] MEDS: Pyridoxine HCl 100 MG Tablet PO (08:27)
[2020-04-07] MEDS: Aspirin E.C. 81 MG Tablet PO (08:27)
[2020-04-07 14:37] VITALS: PULSE 93; RESP 18; O2SAT 95
[2020-04-07] MEDS: 0.9% Saline Lock 10 ML Syringe IV ×2 (17:12→22:07)
[2020-04-07 18:16] VITALS: BP 148/78; PULSE 93; RESP 16; TEMP 36.9; O2SAT 95
[2020-04-07] MEDS: Pramipexole Di-HCl 0.5 MG Tablet PO (21:37)
[2020-04-07] MEDS: MELATONIN 10 MG TABLET PO (21:37)
[2020-04-08 04:00] VITALS: BP 130/68; PULSE 82; RESP 16; TEMP 36.4; O2SAT 97
[2020-04-08] MEDS: Polyethylene Glycol 3350 17 GM PACKET PO (05:56)
[2020-04-08] MEDS: Senna/Docusate Sodium 1 Tablet PO ×2 (05:56→16:35)
[2020-04-08] MEDS: Lisinopril 20 MG Tablet PO (05:56)
[2020-04-08] MEDS: Menthol/Lanolin/Calamine/Znox 113 GM Tube 1 APPLIC TOPICAL ×2 (05:59→16:37)
[2020-04-08] MEDS: Aspirin E.C. 81 MG Tablet PO (08:30)
[2020-04-08] MEDS: Ascorbic Acid 500 MG Tablet PO (08:30)
[2020-04-08] MEDS: Pyridoxine HCl 100 MG Tablet PO (08:30)
[2020-04-08] MEDS: Iron Polysaccharide Complex 150 MG CAPSULE PO (08:30)
[2020-04-08 11:36] VITALS: PULSE 82; RESP 16; O2SAT 97
[2020-04-08 14:48] VITALS: BP 142/70; PULSE 82; RESP 16; TEMP 36.6; O2SAT 97
--- NOTE | 2020-04-08 18:28 | PCM.RX.CS ---
Consult Pharmacy has been consulted to manage selected antiobiotic: Vancomycin Type of Consult: Follow-up Suspected Infection: Skin/Soft tissue Prior Doses of Antibiotics Received/Current Regimen: On 1250mg iv q24h. Labs: Sodium 134 mmol/L (136-145) L 04/01/20 06:45 Potassium 4.0 mmol/L (3.5-5.1) 04/01/20 06:45 Chloride 104 mmol/L (98-107) 04/01/20 06:45 Carbon Dioxide 26.0 mmol/L (21.0-32.0) 04/01/20 06:45 Anion Gap 4 (5-15) L 04/01/20 06:45 BUN 14 mg/dL (7-18) 04/01/20 06:45 Creatinine 0.62 mg/dL (0.55-1.02) 04/01/20 06:45 Est GFR (MDRD) Af Amer 117 mL/min (>60) 04/01/20 06:45 Est GFR (MDRD) Non-Af 96 mL/min (>60) 04/01/20 06:45 BUN/Creatinine Ratio 22.4 RATIO (10-20) H 04/01/20 06:45 Glucose 117 mg/dL (74-106) H 04/01/20 06:45 Vancomycin Trough 15.0 ug/mL (5.0-15.0) 04/08/20 16:35 Random Vancomycin 14.7 ug/mL (0.0-15.0) 03/29/20 12:55 Weight used for dosin kg Estimated Creatinine Clearance: ~31ml/min Goal Trough: 15-20 mcg/mL Pharmacy Plan for Drug Dosing: Trough today was 15.0 and within goal range of 15-20mcg/ml. No new renal labs reported. Will continue same dosage regimen and get another trough level in 4 days. Pharmacy Service will continue to monitor and adjust dosing as required. Follow-Up Labs: Trough Vancomycin - 8.6.20 @1630 before 1700 dose
[2020-04-08] MEDS: MELATONIN 10 MG TABLET PO (20:40)
[2020-04-08] MEDS: Pramipexole Di-HCl 0.5 MG Tablet PO (20:40)
[2020-04-09 06:27] VITALS: BP 105/68; PULSE 70; RESP 16; TEMP 36.4; O2SAT 97
[2020-04-09] MEDS: Menthol/Lanolin/Calamine/Znox 113 GM Tube 1 APPLIC TOPICAL ×2 (06:37→17:00)
[2020-04-09] MEDS: Lisinopril 20 MG Tablet PO (06:38)
[2020-04-09] MEDS: Senna/Docusate Sodium 1 Tablet PO ×2 (06:38→17:00)
[2020-04-09] MEDS: Polyethylene Glycol 3350 17 GM PACKET PO (06:38)
[2020-04-09] MEDS: Aspirin E.C. 81 MG Tablet PO (10:14)
[2020-04-09] MEDS: Ascorbic Acid 500 MG Tablet PO (10:14)
[2020-04-09] MEDS: Iron Polysaccharide Complex 150 MG CAPSULE PO (10:14)
[2020-04-09] MEDS: Pyridoxine HCl 100 MG Tablet PO (10:14)
[2020-04-09 11:58] VITALS: PULSE 84; RESP 16; O2SAT 97
[2020-04-09 15:12] VITALS: BP 126/72; PULSE 82; RESP 16; TEMP 36.6; O2SAT 97
[2020-04-09] MEDS: 0.9% Saline Lock 10 ML Syringe IV (16:59)
[2020-04-09] MEDS: MELATONIN 10 MG TABLET PO (20:36)
[2020-04-09] MEDS: Pramipexole Di-HCl 0.5 MG Tablet PO (20:36)
--- NOTE | 2020-04-09 21:00 | PCM.TCUNOT ---
Subjective: Resident seen in room, sitting in chair. She has no new problems, concerns, issues, complaints. Vitals/I&O's: Vital Signs Temp Pulse Resp BP Pulse Ox 97.9 F 82 16 126/72 H 97 04/09/20 15:12 04/09/20 15:12 04/09/20 15:12 04/09/20 15:12 04/09/20 15:12 Oxygen Delivery Method Room Air Weight: 73.255 kg Body Mass Index (BMI) 32.3 Intake and Output for Last 24 Hours 04/07/20 04/08/20 04/09/20 23:59 23:59 23:59 Intake Total 1235 / 1235 635 / 635 575 / 575 Output Total 650 / 650 1550 / 1550 Balance 585 / 585 -915 / -915 575 / 575 Past Medical History Past Medical History (Chronic Problems): Chronic Problems Osteoarthritis of left hip (Chronic) Body mass index (bmi) 31.0-31.9, adult (Chronic) Hypertension (Chronic) Osteopenia (Chronic) Osteoarthritis (Chronic) Restless leg syndrome (Chronic) Hearing loss (Chronic) Hyperparathyroidism (Chronic) Tobacco abuse (Chronic) Allergies hydroxychloroquine [From Plaquenil] Allergy (Verified 02/10/20 18:43) NEEDS FOLLOW-UP Home Medications: Ambulatory Orders Medication Instructions Recorded Cholecalciferol (VIT D3) [Vitamin 1,000 unit PO DAILY 02/10/20 D3] Lisinopril [Zestril] 20 mg PO DAILY 02/10/20 Acetaminophen [Tylenol] 1,000 mg PO Q6H PRN PRN tab 02/27/20 Doxycycline 100 mg PO BID #10 cap 02/27/20 Melatonin 10 mg PO QHS tab 02/27/20 Acetaminophen [Tylenol] 2 tab PO Q6H PRN PRN 03/17/20 Ascorbic Acid [Vitamin C] 500 mg PO DAILY 03/17/20 Aspirin E.C. [Ecotrin] 81 mg PO DAILY@79903/17/20 Enoxaparin [Lovenox] 40 mg SUBCUT DAILY@59903/17/20 Iron Polysaccharide Complex 150 mg PO DAILYCM 03/17/20 [Ferrex 150] Polyethylene Glycol 3350 [Miralax] 17 gm PO DAILY 03/17/20 Pramipexole Di-HCl [Mirapex] 0.5 mg PO QHS 03/17/20 Pyridoxine HCl [Vitamin B-6] 100 mg PO DAILY@0800 03/17/20 Surgical History: hysterectomy, total hip arthroplasty - Left., total knee arthroplasty - Bilateral., tonsillectomy, - - Parathyroidectomy, Melanoma, Carpal tunnel release, Vaginectomy, Left periprosthetic femur fracture repair with longer lorri. Psychiatric History: No pertinent psych hx SUPPLIER ENGINEER History: - - Vaginectomy. Lives: With Family - Son, daughter in law. Smoking Status: Current some day smoker Tobacco Use: Cigarettes Alcohol: None Drugs: None - *Family History Maternal History Items: No pertinent history Paternal History Items: No pertinent history Capacity - Capacity Assessment Tool Can the patient make a choice & communicate that choice?: Yes Can the patient understand benefits, risks and alternatives?: Yes Can the patient make a logical, rational choice?: Yes Is the choice the patient makes consistent w/ their values?: Yes Is there an impending, emergent risk to the patient?: No Does the patient have an Advance Directive?: No Is there a Surrogate Available?: Yes i.e. HCPOA: Yes i.e. close relative (spouse, child, parent, sibling)?: Yes Review of Systems Constitutional: Denies: Chills, Fever, Weight Change HEENT: Denies: Head Aches, Sinus Congestion, Sinus Drainage Cardiovascular: Denies: Chest Pain, Palpitations Respiratory: Denies: Cough, Shortness of breath at rest, Sputum production Gastrointestinal: Denies: Abdominal Pain, Nausea, Vomiting Genitourinary: Denies: Dysuria Musculoskeletal: Denies: Joint Pain, Joint Tenderness Skin: Denies: Rash, Wounds Neurological: Denies: Numbness, Tingling, Focal weakness Psychiatric: Denies: Anxiety, Depression, Homicidal Ideations, Suicidal Ideations Hematologic/ Lymphatic: Denies: Easy Bruising, Easy Bleeding 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) - Physical Exam Vitals/I&O's: Vital Signs Temp Pulse Resp BP Pulse Ox 97.9 F 82 16 126/72 H 97 04/09/20 15:12 04/09/20 15:12 04/09/20 15:12 04/09/20 15:12 04/09/20 15:12 Oxygen Delivery Method Room Air Weight: 73.255 kg Body Mass Index (BMI) 32.3 Intake and Output for Last 24 Hours 04/07/20 04/08/20 04/09/20 23:59 23:59 23:59 Intake Total 1235 / 1235 635 / 635 575 / 575 Output Total 650 / 650 1550 / 1550 Balance 585 / 585 -915 / -915 575 / 575 General: Alert, Oriented x3, Cooperative HEENT: Atraumatic, PERRLA, EOMI, Normocephalic Neck: Supple, No JVD, Negative Carotid Bruits Lungs: Clear to auscultation, Normal air movement Cardiovascular: Regular rate, No murmurs Abdomen: Bowel Sounds Present, Soft, Non Tender Extremities: No edema, Capillary Refill Less than 3 Seconds, - - Right upper extremity PICC line. Skin: No rashes, No breakdown Musculoskeletal: No Tenderness to Palpation of Joints or Extremities Neurological: Cranial nerves II-XII grossly intact Psych/Mental Status: Normal Affect, Appropriate Current Medications Acetaminophen (Tylenol) 1,000 mg PO Q6H PRN PRN PRN Reason: Pain Score 1-3/10 Last Admin: 03/27/20 11:46 Dose: 1,000 mg Documented by: Ascorbic Acid (Vitamin C) 500 mg PO DAILY@0800 [facility] Last Admin: 04/09/20 10:14 Dose: 500 mg Documented by: Aspirin (Ecotrin) 81 mg PO DAILY@0800 [facility] Last Admin: 04/09/20 10:14 Dose: 81 mg Documented by: Bisacodyl (Dulcolax) 10 mg RECTAL DAILY PRN PRN Reason: Constipation Last Admin: 03/25/20 13:17 Dose: 10 mg Documented by: Calamine/Phenol (Calmoseptine Ointment) 1 applic TOPICAL BID [facility]; Protocol Last Admin: 04/09/20 17:00 Dose: 1 applicatio Documented by: Cholecalciferol (Vitamin D (25mcg)) 1,000 unit PO DAILY [facility] Last Admin: 04/09/20 06:38 Dose: 1,000 unit Documented by: Heparin Sodium (Beef Lung) () 50 units IV UD PRN PRN Reason: PICC Line Heparin Flush Hydrocortisone (Hytone) 1 applic TOPICAL BID PRN PRN; Protocol PRN Reason: ITCHING Vancomycin IV Pharmacy to Dose (1 ea/ Sodium Chloride) 500 mls @ 250 mls/hr IV X1 PRN; Protocol PRN Reason: Rx to Dose Sodium Chloride () 250 mls @ 15 mls/hr IV .[id number] PRN PRN Reason: Saline Flush Last Infusion: 04/05/20 18:55 Dose: 0 mls/hr Documented by: Sodium Chloride () 250 mls @ 15 mls/hr IV .[id number] PRN PRN Reason: Additional IVPB Infusion Last Infusion: 04/05/20 18:22 Dose: 0 mls/hr Documented by: Vancomycin HCl 1,250 mg/ (Sodium Chloride) 275 mls @ 167 mls/hr IV Q24H [facility] Last Infusion: 04/09/20 18:40 Dose: Infused Documented by: Lactobacillus Acidophilus (Acidophilus) 1 tablet PO BID [facility] Last Admin: 04/09/20 17:00 Dose: 1 tablet Documented by: Lisinopril (Zestril) 20 mg PO DAILY [facility] Last Admin: 04/09/20 06:38 Dose: 20 mg Documented by: Melatonin (Melatonin) 10 mg PO QHS [facility] Last Admin: 04/09/20 20:36 Dose: 10 mg Documented by: Oxycodone HCl (Oxyir) 2.5 mg PO Q4H PRN PRN PRN Reason: Pain Score 4-10/10 Last Admin: 03/27/20 11:45 Dose: 2.5 mg Documented by: Polyethylene Glycol (Miralax) 17 gm PO DAILY [facility] Last Admin: 04/09/20 06:38 Dose: 17 gm Documented by: Polysaccharide Iron Complex (Ferrex 150) 150 mg PO DAILYCM [facility] Last Admin: 04/09/20 10:14 Dose: 150 mg Documented by: Pramipexole Dihydrochloride (Mirapex) 0.5 mg PO QHS [facility] Last Admin: 04/09/20 20:36 Dose: 0.5 mg Documented by: Pyridoxine HCl (Vitamin B-6) 100 mg PO DAILY@0800 [facility] Last Admin: 04/09/20 10:14 Dose: 100 mg Documented by: Senna/Docusate Sodium (Senokot-S, Leah-Colace) 1 tablet PO BID [facility] Last Admin: 04/09/20 17:00 Dose: 1 tablet Documented by: Sodium Chloride () 10 - 40 ml IV UD PRN PRN Reason: Open End PICC Flush Last Admin: 04/09/20 16:59 Dose: 20 ml Documented by: Sodium Chloride (0.9% Nacl (Sterile) Posiflush) 10 - 40 ml IV UD PRN PRN Reason: Port access or dressing change Assessment/Plan All Active Problems Debility (Acute) Periprosthetic fracture around internal prosthetic left hip joint (Acute) 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 Roldan, admitted to TCU with debility, here for rehabilitation, strengthening, prior to discharge home with family. Debility - PT/OT. Pain - Tylenol 1000MG Q6H PRN pain (1-3), Oxycodone 2.5MG Q4H PRN pain (4-10). Bowel - Miralax 17GM daily, Senna/colace 1 tablet BID, Dulcolax 10MG TN daily PRN. Adult immunization - Administer Prevnar 13, Pneumovax 23, Fluzone as appropriate. DVT prophylaxis - Held, due to anemia. Vitamin C deficiency - Vitamin C 500MG daily. CV prophylaxis - Aspirin 81MG daily. Vitamin D deficiency - Vitamin D3 1000IU daily. Rash - Hytone 2.5% cream BID PRN. Iron deficiency anemia - Ferrex 150MG daily. GI prophylaxis - Lactobacillus 1 tablet BID. Nutrition - Ensure Enlive 120ML 4x/day. Hypertension - Lisinopril 20MG daily. Restless Leg syndrome - Mirapex 0.5MG QHS. Vitamin B-6 deficiency - Vitamin B-6 100MG daily. Insomnia - Melatonin 10MG QHS. Skin irritation - Calmoseptine BID. KARLIE prosthetic joint infection - Appreciate Dr. Feldman help, Vancomycin 1250MG IV Q24H for 6 week course, then oral Doxcycline.
[2020-04-10 04:00] VITALS: BP 123/50; PULSE 77; RESP 16; TEMP 36.6; O2SAT 98
[2020-04-10] MEDS: Lisinopril 20 MG Tablet PO (05:42)
[2020-04-10] MEDS: Polyethylene Glycol 3350 17 GM PACKET PO (05:42)
[2020-04-10] MEDS: Senna/Docusate Sodium 1 Tablet PO ×2 (05:42→17:16)
[2020-04-10] MEDS: Menthol/Lanolin/Calamine/Znox 113 GM Tube 1 APPLIC TOPICAL ×2 (05:42→17:17)
[2020-04-10 05:54] LABS: Anion Gap 4 (5-15); BUN 10 mg/dL (7-18); Calcium,Total 8.5 mg/dL (8.5-10.1); Chloride 108 mmol/L (98-107); Creatinine, Serum 0.56 mg/dL (0.55-1.02); EST Glomerular Filtration Rate 110 mL/min (>60); Est Glom Filt Rate - Afr Amer 133 mL/min (>60); Estimated Creatinine Clearance 31.04 ml/min; Glucose 81 mg/dL (74-106); Potassium 4.3 mmol/L (3.5-5.1); Sodium Level 138 mmol/L (136-145)
[2020-04-10 05:55] LABS: Absolute Lymphocyte Count 1.06 X10^3/uL (0.83-4.51); Absolute Neutrophil Count 2.9 X10^3/uL (2.0-7.7); Basophil% 1.9 % (0-1); Eosinophil# 0.66 X10^3/uL; Eosinophils% 12.6 % (0-5); Hematocrit 29.3 % (37-47); Hemoglobin 9.1 g/dL (12.0-15.0); Lymphocyte # 1.06 X10^3/ul (4.0); Lymphocyte % 20.2 % (19-41); Mean Corp Hgb Conc 31.1 g/dL (32-36); Mean Corpuscular Hgb 30.3 pg (27.0-32.0); Mean Corpuscular Volume 97.7 fL (81-99); Mean Platelet Vol. 8.7 fl (6.2-12.0); Monocyte# 0.49 X10^3/uL; Monocyte% 9.4 % (0-10); NRBC Flagged by Analyzer 0 % (0-5); Neutrophil # 2.87 X10^3/uL (2.7-7.7); Neutrophil % 54.8 % (47-70); Platelet Count 251 K/mm3 (150-450); RBC Distribution Width SD 57.4 fl (35.1-43.9); White Blood Count 5.2 K/mm3 (4.4-11.0)
[2020-04-10] MEDS: Aspirin E.C. 81 MG Tablet PO (08:16)
[2020-04-10] MEDS: Pyridoxine HCl 100 MG Tablet PO (08:16)
[2020-04-10] MEDS: Iron Polysaccharide Complex 150 MG CAPSULE PO (08:16)
[2020-04-10] MEDS: Ascorbic Acid 500 MG Tablet PO (08:16)
--- NOTE | 2020-04-10 10:09 | PCM.PN.ID ---
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 Reports some drainage from L hip. - Physical Exam Vitals/I&O's: Vital Signs Temp Pulse Resp BP Pulse Ox 98 F 77 16 123/50 H 98 04/10/20 04:00 04/10/20 04:00 04/10/20 04:00 04/10/20 04:00 04/10/20 04:00 Oxygen Delivery Method Room Air Weight: 73.255 kg Body Mass Index (BMI) 32.3 Intake and Output for Last 24 Hours 04/08/20 04/09/20 04/10/20 23:59 23:59 23:59 Intake Total 635 / 635 755 / 755 240 / 240 Output Total 1550 / 1550 Balance -915 / -915 755 / 755 240 / 240 General: Alert, Cooperative, No apparent distress Lungs: Clear to auscultation, Normal air movement Cardiovascular: Regular rate, Regular Rhythm Abdomen: Soft, Non Tender, Non-Distended Skin: Incision - L hip with no redness or drainage. Laboratory Results 04/10/20 05:20: WBC 5.2, RBC 3.00 L, Hgb 9.1 L, Hct 29.3 L, MCV 97.7, MCH 30.3, MCHC 31.1 L, RDW Std Deviation 57.4 H, RDW Coeff of Danny 16.0 H, Plt Count 251, MPV 8.7, Immature Gran % (Auto) 1.100 H, Neut % (Auto) 54.8, Lymph % (Auto) 20.2, [place] % (Auto) 9.4, Eos % (Auto) 12.6 H, Baso % (Auto) 1.9 H, Absolute Neuts (auto) 2.9, Absolute Lymphs (auto) 1.06, Nucleated RBC % 0 04/10/20 05:20: Sodium 138, Potassium 4.3, Chloride 108 H, Carbon Dioxide 26.0, Anion Gap 4 L, BUN 10, Creatinine 0.56, Estim Creat Clear Calc 31.04, Est GFR (MDRD) Af Amer 133, Est GFR (MDRD) Non-Af 110, BUN/Creatinine Ratio 18.0, Glucose 81, Calcium 8.5 Current Medications Acetaminophen (Tylenol) 1,000 mg PO Q6H PRN PRN PRN Reason: Pain Score 1-3/10 Last Admin: 03/27/20 11:46 Dose: 1,000 mg Documented by: Ascorbic Acid (Vitamin C) 500 mg PO DAILY@0800 [facility] Last Admin: 04/10/20 08:16 Dose: 500 mg Documented by: Aspirin (Ecotrin) 81 mg PO DAILY@0800 [facility] Last Admin: 04/10/20 08:16 Dose: 81 mg Documented by: Bisacodyl (Dulcolax) 10 mg RECTAL DAILY PRN PRN Reason: Constipation Last Admin: 03/25/20 13:17 Dose: 10 mg Documented by: Calamine/Phenol (Calmoseptine Ointment) 1 applic TOPICAL BID [facility]; Protocol Last Admin: 04/10/20 05:42 Dose: 1 applicatio Documented by: Cholecalciferol (Vitamin D (25mcg)) 1,000 unit PO DAILY [facility] Last Admin: 04/10/20 05:42 Dose: 1,000 unit Documented by: Heparin Sodium (Beef Lung) () 50 units IV UD PRN PRN Reason: PICC Line Heparin Flush Hydrocortisone (Hytone) 1 applic TOPICAL BID PRN PRN; Protocol PRN Reason: ITCHING Vancomycin IV Pharmacy to Dose (1 ea/ Sodium Chloride) 500 mls @ 250 mls/hr IV X1 PRN; Protocol PRN Reason: Rx to Dose Sodium Chloride () 250 mls @ 15 mls/hr IV .[id number] PRN PRN Reason: Saline Flush Last Infusion: 04/05/20 18:55 Dose: 0 mls/hr Documented by: Sodium Chloride () 250 mls @ 15 mls/hr IV .[id number] PRN PRN Reason: Additional IVPB Infusion Last Infusion: 04/05/20 18:22 Dose: 0 mls/hr Documented by: Vancomycin HCl 1,250 mg/ (Sodium Chloride) 275 mls @ 167 mls/hr IV Q24H [facility] Last Infusion: 04/09/20 18:40 Dose: Infused Documented by: Lactobacillus Acidophilus (Acidophilus) 1 tablet PO BID [facility] Last Admin: 04/10/20 05:42 Dose: 1 tablet Documented by: Lisinopril (Zestril) 20 mg PO DAILY [facility] Last Admin: 04/10/20 05:42 Dose: 20 mg Documented by: Melatonin (Melatonin) 10 mg PO QHS [facility] Last Admin: 04/09/20 20:36 Dose: 10 mg Documented by: Oxycodone HCl (Oxyir) 2.5 mg PO Q4H PRN PRN PRN Reason: Pain Score 4-10/10 Last Admin: 03/27/20 11:45 Dose: 2.5 mg Documented by: Polyethylene Glycol (Miralax) 17 gm PO DAILY [facility] Last Admin: 04/10/20 05:42 Dose: 17 gm Documented by: Polysaccharide Iron Complex (Ferrex 150) 150 mg PO DAILYCM [facility] Last Admin: 04/10/20 08:16 Dose: 150 mg Documented by: Pramipexole Dihydrochloride (Mirapex) 0.5 mg PO QHS [facility] Last Admin: 04/09/20 20:36 Dose: 0.5 mg Documented by: Pyridoxine HCl (Vitamin B-6) 100 mg PO DAILY@0800 [facility] Last Admin: 04/10/20 08:16 Dose: 100 mg Documented by: Senna/Docusate Sodium (Senokot-S, Leah-Colace) 1 tablet PO BID [facility] Last Admin: 04/10/20 05:42 Dose: 1 tablet Documented by: Sodium Chloride () 10 - 40 ml IV UD PRN PRN Reason: Open End PICC Flush Last Admin: 04/09/20 16:59 Dose: 20 ml Documented by: Sodium Chloride (0.9% Nacl (Sterile) Posiflush) 10 - 40 ml IV UD PRN PRN Reason: Port access or dressing change Medical Necessity - Tobacco Use Smoking Status: Current some day smoker Tobacco Use: Cigarettes Route of nutrition/ use of supplements: [] Nutritional Intake: [] IV Site: [] Miranda Catheter: [] - Assessment/Plan Antibiotics: [] Assessment/Plan: [] Active and Suspected Problems Periprosthetic fracture around internal prosthetic left hip joint (Acute) KARLIE L hip PJI - requested cx data sherif Warner. 2 of 3 intra-op cxs from 03/14/[address] Roldan with KARLIE R to augmentin. On iv vanc for planned 6 week course, stop date planned for 05/04/20. Weekly bmp, cbc, esr, and vanc trough. After IV course, will need fdc po abx; likely doxy. Will follow
[2020-04-10 14:10] VITALS: BP 122/67; PULSE 97; RESP 16; TEMP 36.8; O2SAT 94
--- NOTE | 2020-04-10 16:16 | CASEMGMT ---
Social Work Spoke with son, Jaydon, about insurance approving pt with [facility] 04/16 and continued stay is not guaranteed. Reiterated options if pt would be issued LCD. Son would most likely pay privately for pt to remain in TCU or to another SNF until receives WBS and can continue with more therapy. Will continue to follow. Joana Forte, COMPUTER OPERATIONS SPECIALIST FARM SERVICE CONSULTANT
[2020-04-10] MEDS: 0.9% Saline Lock 10 ML Syringe IV (17:15)
[2020-04-10] MEDS: Pramipexole Di-HCl 0.5 MG Tablet PO (21:25)
[2020-04-10] MEDS: MELATONIN 10 MG TABLET PO (21:26)
[2020-04-11] MEDS: Polyethylene Glycol 3350 17 GM PACKET PO (06:16)
[2020-04-11] MEDS: Lisinopril 20 MG Tablet PO (06:16)
[2020-04-11] MEDS: Senna/Docusate Sodium 1 Tablet PO ×2 (06:16→16:57)
[2020-04-11 06:17] VITALS: BP 146/67; PULSE 77; RESP 16; TEMP 36.4; O2SAT 97
[2020-04-11] MEDS: Menthol/Lanolin/Calamine/Znox 113 GM Tube 1 APPLIC TOPICAL ×2 (06:21→16:57)
[2020-04-11] MEDS: 0.9% Saline Lock 10 ML Syringe IV ×3 (06:21→20:52)
[2020-04-11] MEDS: Iron Polysaccharide Complex 150 MG CAPSULE PO (08:30)
[2020-04-11] MEDS: Aspirin E.C. 81 MG Tablet PO (08:30)
[2020-04-11] MEDS: Ascorbic Acid 500 MG Tablet PO (08:30)
[2020-04-11] MEDS: Pyridoxine HCl 100 MG Tablet PO (08:31)
[2020-04-11 13:05] VITALS: BP 130/78; PULSE 87; RESP 16; TEMP 37; O2SAT 98
[2020-04-11] MEDS: Pramipexole Di-HCl 0.5 MG Tablet PO (20:51)
[2020-04-11] MEDS: MELATONIN 10 MG TABLET PO (20:52)
[2020-04-11 22:14] VITALS: O2SAT 98
[2020-04-12] MEDS: Polyethylene Glycol 3350 17 GM PACKET PO (06:37)
[2020-04-12] MEDS: Lisinopril 20 MG Tablet PO (06:37)
[2020-04-12] MEDS: Senna/Docusate Sodium 1 Tablet PO ×2 (06:37→16:45)
[2020-04-12] MEDS: Menthol/Lanolin/Calamine/Znox 113 GM Tube 1 APPLIC TOPICAL ×2 (06:42→16:46)
[2020-04-12 06:43] VITALS: BP 122/62; PULSE 66; RESP 16; TEMP 36.4; O2SAT 97
[2020-04-12] MEDS: Iron Polysaccharide Complex 150 MG CAPSULE PO (08:20)
[2020-04-12] MEDS: Aspirin E.C. 81 MG Tablet PO (08:20)
[2020-04-12] MEDS: Ascorbic Acid 500 MG Tablet PO (08:20)
[2020-04-12] MEDS: Pyridoxine HCl 100 MG Tablet PO (08:20)
[2020-04-12 14:14] VITALS: BP 114/66; PULSE 94; RESP 16; TEMP 37; O2SAT 97
--- NOTE | 2020-04-12 16:28 | CASEMGMT ---
Addendum entered by Joana Forte 04/13/20 16:00: Spoke with son and he would like for her to remain in that facility for therapy when does get WBS changed due to re-quarantine. Bakari Miranda is in network with [facility] and [facility]. Son is okay with either facility. Will wait to hear outcome from appt on this date and insurance decision with [facility] 04/16. Addendum entered by Joana Forte 04/13/20 14:43: Left message with son that [facility] accepted pt and provided pricing. [facility] does not have any availability. Original Note: Social Work Spoke with pt's son whom requested SW refer to several facilities for availability and pricing for possible DC if insurance issues DC at [facility] 04/16. Referrals made. Will continue to follow. SANDEE Maldonado
[2020-04-12] MEDS: 0.9% Saline Lock 10 ML Syringe IV (17:51)
[2020-04-12 18:30] LABS: Vancomycin, Trough Level 16.4 ug/mL (5.0-15.0)
--- NOTE | 2020-04-12 20:02 | PCM.RX.CS ---
Consult Pharmacy has been consulted to manage selected antiobiotic: Vancomycin Type of Consult: Follow-up Suspected Infection: Skin/Soft tissue Prior Doses of Antibiotics Received/Current Regimen: Currently on 1250mg iv q24h. Labs: Sodium 138 mmol/L (136-145) 04/10/20 05:20 Potassium 4.3 mmol/L (3.5-5.1) 04/10/20 05:20 Chloride 108 mmol/L (98-107) H 04/10/20 05:20 Carbon Dioxide 26.0 mmol/L (21.0-32.0) 04/10/20 05:20 Anion Gap 4 (5-15) L 04/10/20 05:20 BUN 10 mg/dL (7-18) 04/10/20 05:20 Creatinine 0.56 mg/dL (0.55-1.02) 04/10/20 05:20 Est GFR (MDRD) Af Amer 133 mL/min (>60) 04/10/20 05:20 Est GFR (MDRD) Non-Af 110 mL/min (>60) 04/10/20 05:20 BUN/Creatinine Ratio 18.0 RATIO (10-20) 04/10/20 05:20 Glucose 81 mg/dL (74-106) 04/10/20 05:20 Vancomycin Trough 16.4 ug/mL (5.0-15.0) H 04/12/20 17:35 Random Vancomycin 14.7 ug/mL (0.0-15.0) 03/29/20 12:55 Weight used for dosin kg Estimated Creatinine Clearance: ~31ml/min Goal Trough: 15-20 mcg/mL Pharmacy Plan for Drug Dosing: Trough today 16.4 and in goal range of 15-20mcg/ml. Renal status reviewed. Will continue same regimen and get a repeat trough in 4 days. Pharmacy Service will continue to monitor and adjust dosing as required. Follow-Up Labs: Trough Vancomycin - 8.10 @0745
[2020-04-12] MEDS: MELATONIN 10 MG TABLET PO (20:44)
[2020-04-12] MEDS: Pramipexole Di-HCl 0.5 MG Tablet PO (20:44)
[2020-04-13 04:00] VITALS: BP 146/63; PULSE 81; RESP 16; TEMP 36.3; O2SAT 97
[2020-04-13] MEDS: Senna/Docusate Sodium 1 Tablet PO ×2 (06:58→17:21)
[2020-04-13] MEDS: Polyethylene Glycol 3350 17 GM PACKET PO (06:58)
[2020-04-13] MEDS: Lisinopril 20 MG Tablet PO (06:58)
[2020-04-13] MEDS: Menthol/Lanolin/Calamine/Znox 113 GM Tube 1 APPLIC TOPICAL ×2 (07:02→17:21)
[2020-04-13] MEDS: 0.9% Saline Lock 10 ML Syringe IV ×3 (07:06→21:25)
[2020-04-13] MEDS: Ascorbic Acid 500 MG Tablet PO (08:30)
[2020-04-13] MEDS: Pyridoxine HCl 100 MG Tablet PO (08:30)
[2020-04-13] MEDS: Iron Polysaccharide Complex 150 MG CAPSULE PO (08:30)
[2020-04-13] MEDS: Aspirin E.C. 81 MG Tablet PO (08:30)
[2020-04-13 13:50] VITALS: BP 136/70; PULSE 92; RESP 20; TEMP 37.1; O2SAT 96
[2020-04-13] MEDS: Pramipexole Di-HCl 0.5 MG Tablet PO (21:23)
[2020-04-13] MEDS: MELATONIN 10 MG TABLET PO (21:23)
[2020-04-14] MEDS: Polyethylene Glycol 3350 17 GM PACKET PO (06:39)
[2020-04-14] MEDS: Lisinopril 20 MG Tablet PO (06:41)
[2020-04-14] MEDS: Senna/Docusate Sodium 1 Tablet PO ×2 (06:41→17:37)
[2020-04-14] MEDS: Menthol/Lanolin/Calamine/Znox 113 GM Tube 1 APPLIC TOPICAL ×2 (06:42→17:37)
[2020-04-14 06:46] VITALS: BP 115/61; PULSE 66; RESP 18; TEMP 36.6; O2SAT 98
[2020-04-14] MEDS: Iron Polysaccharide Complex 150 MG CAPSULE PO (08:57)
[2020-04-14] MEDS: Aspirin E.C. 81 MG Tablet PO (08:57)
[2020-04-14] MEDS: Pyridoxine HCl 100 MG Tablet PO (08:58)
[2020-04-14] MEDS: Ascorbic Acid 500 MG Tablet PO (08:58)
[2020-04-14 13:01] VITALS: PULSE 91; RESP 18; O2SAT 94
[2020-04-14] MEDS: 0.9% Saline Lock 10 ML Syringe IV (17:36)
[2020-04-14 18:24] VITALS: BP 122/68; PULSE 91; RESP 18; TEMP 36.9; O2SAT 94
[2020-04-14] MEDS: Pramipexole Di-HCl 0.5 MG Tablet PO (21:19)
[2020-04-14] MEDS: MELATONIN 10 MG TABLET PO (21:19)
[2020-04-15] MEDS: Polyethylene Glycol 3350 17 GM PACKET PO (06:20)
[2020-04-15] MEDS: Lisinopril 20 MG Tablet PO (06:23)
[2020-04-15] MEDS: Senna/Docusate Sodium 1 Tablet PO ×2 (06:23→16:52)
[2020-04-15] MEDS: Menthol/Lanolin/Calamine/Znox 113 GM Tube 1 APPLIC TOPICAL ×2 (06:24→16:53)
[2020-04-15 06:29] VITALS: BP 108/81; PULSE 83; RESP 18; TEMP 36.6; O2SAT 97
[2020-04-15] MEDS: Iron Polysaccharide Complex 150 MG CAPSULE PO (08:09)
[2020-04-15] MEDS: Aspirin E.C. 81 MG Tablet PO (08:09)
[2020-04-15] MEDS: Pyridoxine HCl 100 MG Tablet PO (08:10)
[2020-04-15] MEDS: Ascorbic Acid 500 MG Tablet PO (08:10)
[2020-04-15 14:21] VITALS: BP 146/72; PULSE 76; RESP 16; TEMP 36.6; O2SAT 96
[2020-04-15] MEDS: 0.9% Saline Lock 10 ML Syringe IV ×2 (17:14→21:00)
[2020-04-15] MEDS: MELATONIN 10 MG TABLET PO (20:55)
[2020-04-15] MEDS: Pramipexole Di-HCl 0.5 MG Tablet PO (20:55)
[2020-04-15 22:00] VITALS: O2SAT 98
[2020-04-16] MEDS: Polyethylene Glycol 3350 17 GM PACKET PO (06:16)
[2020-04-16] MEDS: Senna/Docusate Sodium 1 Tablet PO ×2 (06:20→17:29)
[2020-04-16] MEDS: Lisinopril 20 MG Tablet PO (06:20)
[2020-04-16 06:21] VITALS: BP 133/55; PULSE 74; RESP 17; TEMP 36.4; O2SAT 97
[2020-04-16] MEDS: Menthol/Lanolin/Calamine/Znox 113 GM Tube 1 APPLIC TOPICAL ×2 (06:21→17:29)
[2020-04-16] MEDS: Aspirin E.C. 81 MG Tablet PO (08:19)
[2020-04-16] MEDS: Iron Polysaccharide Complex 150 MG CAPSULE PO (08:19)
[2020-04-16] MEDS: Ascorbic Acid 500 MG Tablet PO (08:19)
[2020-04-16] MEDS: Pyridoxine HCl 100 MG Tablet PO (08:19)
--- NOTE | 2020-04-16 08:20 | CASEMGMT ---
Social Work Spoke with pt about appt 04/13. Per pt, took xray and stated it is healing, but did not increase WBS. Also, ID Dr visited 04/13 and stated 4 more weeks of IV ATB. Spoke with nursing 04/13 and 04/16 to contact physicians to get official outcome. Insurance update this date. Will continue to follow. Joana Forte, POWDER OPERATOR BUYER
--- NOTE | 2020-04-16 10:42 | NURSING ---
Left message for Dr. Laguna's nurse, requesting update on weight bearing status and how long he plans to continue the patients ATB.
--- NOTE | 2020-04-16 12:16 | NURSING ---
Received return call from Dr. Laguna's office. patient is to remain strict toe touchdown weight bearing status, ATB is to continue and F/U in 4 weeks.
[2020-04-16 14:26] VITALS: PULSE 88; RESP 16; O2SAT 93
[2020-04-16 15:28] VITALS: BP 134/68; PULSE 88; RESP 18; TEMP 36.7; O2SAT 95
--- NOTE | 2020-04-16 15:34 | CASEMGMT ---
Social Work Spoke with case hardener at [facility] to discuss pt's DC options. Sonja explained pt is on day 50/100 skilled days. Inquired if pt/family wants to continue using skilled days without increase in WBS to continue with IV ATB, if insurance continues to approve for skilled need, or if pt/family wants pt to transfer to SNF nonskilled to save days until receives increase in WBS. Discussed coverage of IVs if pt transferred nonskilled - contacted SNF and [facility] - the outcome was unclear. Sonja requested to contact member services to inquire. Insurance did approve additional days with [facility] 04/20 to soley have time to discuss DC plans with family further. Will continue to follow. SANDEE Maldonado [employer]
[2020-04-16 17:00] LABS: Vancomycin, Trough Level 16.2 ug/mL (5.0-15.0)
[2020-04-16] MEDS: 0.9% Saline Lock 10 ML Syringe IV (17:27)
--- NOTE | 2020-04-16 18:30 | PCM.RX.CS ---
Consult Pharmacy has been consulted to manage selected antiobiotic: Vancomycin Type of Consult: Follow-up Suspected Infection: Other - JOINT INFECTION Labs: Sodium 138 mmol/L (136-145) 04/10/20 05:20 Potassium 4.3 mmol/L (3.5-5.1) 04/10/20 05:20 Chloride 108 mmol/L (98-107) H 04/10/20 05:20 Carbon Dioxide 26.0 mmol/L (21.0-32.0) 04/10/20 05:20 Anion Gap 4 (5-15) L 04/10/20 05:20 BUN 10 mg/dL (7-18) 04/10/20 05:20 Creatinine 0.56 mg/dL (0.55-1.02) 04/10/20 05:20 Est GFR (MDRD) Af Amer 133 mL/min (>60) 04/10/20 05:20 Est GFR (MDRD) Non-Af 110 mL/min (>60) 04/10/20 05:20 BUN/Creatinine Ratio 18.0 RATIO (-20) 04/10/20 05:20 Glucose 81 mg/dL (74-106) 04/10/20 05:20 Vancomycin Trough 16.2 ug/mL (5.0-15.0) H 04/16/20 16:35 Random Vancomycin 14.7 ug/mL (0.0-15.0) 03/29/20 12:55 Goal Trough: 15-20 mcg/mL Pharmacy Plan for Drug Dosing: VANCOMYCIN LEVEL RECEIVED Current Vancomycin Dose: 1750MG Q24H Number of Doses Received: MANY Vancomycin Level: 16.2 MG/DL Hours Since Last Dose: 23 Renal Function: NO NEW LEVEL, LAST FROM 04/10 Renal Function Trend: STABLE Lab/Micro: NO CHANGE Vancomycin Plan/Comments: CONTINUE CURRENT DOSE AND CHECK TROUGH IN 4 DAYS Pharmacy Service will continue to monitor and adjust dosing as required. Labs to be done on [date and time ordered]: 04/20/20 @ 5211
[2020-04-16] MEDS: Pramipexole Di-HCl 0.5 MG Tablet PO (20:55)
[2020-04-16] MEDS: MELATONIN 10 MG TABLET PO (20:55)
[2020-04-17 05:36] LABS: Absolute Lymphocyte Count 0.79 X10^3/uL (0.83-4.51); Absolute Neutrophil Count 3.1 X10^3/uL (2.0-7.7); Basophil# 0.09 X10^3/uL; Basophil% 1.8 % (0-1); Eosinophil# 0.55 X10^3/uL; Eosinophils% 10.8 % (0-5); Hemoglobin 9.4 g/dL (12.0-15.0); Lymphocyte # 0.79 X10^3/ul (4.0); Lymphocyte % 15.6 % (19-41); Mean Corp Hgb Conc 32.4 g/dL (32-36); Mean Corpuscular Hgb 30.8 pg (27.0-32.0); Mean Corpuscular Volume 95.1 fL (81-99); Mean Platelet Vol. 8.9 fl (6.2-12.0); Monocyte# 0.49 X10^3/uL; Monocyte% 9.7 % (0-10); NRBC Flagged by Analyzer 0 % (0-5); Neutrophil # 3.09 X10^3/uL (2.7-7.7); Neutrophil % 60.9 % (47-70); Platelet Count 262 K/mm3 (150-450); RBC Distribution Width CV 15.1 % (11.6-14.6); RBC Distribution Width SD 52.7 fl (35.1-43.9); Red Blood Count 3.05 M/mm3 (4.2-5.4); White Blood Count 5.1 K/mm3 (4.4-11.0)
[2020-04-17 05:53] LABS: Anion Gap 7 (5-15); BUN 13 mg/dL (7-18); BUN/Creat Ratio 22.4 RATIO (10-20); Calcium,Total 8.3 mg/dL (8.5-10.1); Chloride 105 mmol/L (98-107); Creatinine, Serum 0.58 mg/dL (0.55-1.02); EST Glomerular Filtration Rate 105 mL/min (>60); Est Glom Filt Rate - Afr Amer 127 mL/min (>60); Estimated Creatinine Clearance 31.04 ml/min; Glucose 82 mg/dL (74-106); Potassium 4.1 mmol/L (3.5-5.1); Sodium Level 138 mmol/L (136-145)
[2020-04-17 06:16] VITALS: BP 126/67; PULSE 78; RESP 16; TEMP 36.6; O2SAT 97
[2020-04-17] MEDS: Senna/Docusate Sodium 1 Tablet PO ×2 (06:26→18:00)
[2020-04-17] MEDS: Lisinopril 20 MG Tablet PO (06:26)
[2020-04-17] MEDS: Polyethylene Glycol 3350 17 GM PACKET PO (06:26)
[2020-04-17] MEDS: Menthol/Lanolin/Calamine/Znox 113 GM Tube 1 APPLIC TOPICAL ×2 (06:28→18:02)
[2020-04-17] MEDS: Aspirin E.C. 81 MG Tablet PO (08:19)
[2020-04-17] MEDS: Iron Polysaccharide Complex 150 MG CAPSULE PO (08:19)
[2020-04-17] MEDS: Ascorbic Acid 500 MG Tablet PO (08:19)
[2020-04-17] MEDS: Pyridoxine HCl 100 MG Tablet PO (08:19)
--- NOTE | 2020-04-17 08:39 | CASEMGMT ---
Addendum entered by Joana Forte 04/17/20 14:03: Left message with son that ID. entered stop date for IV ATBs as 05/04. Original Note: Social Work Spoke with pt's son Jaydon and JERMAINE Roper on insurance information. Explained C.M. and SW conversation and SW findings on IVs. Requested family to contact member services, as suggested by C.M. to get IV coverage. Family agreeable. Explained pt's 100 days do not reset until there is a 60 day, consecutive break in services. Family understood. Clarified accepting facilities - [place], [facility] and [facility] and provided rates. Family to contact with outcome. Will continue to follow. Joana Forte, SANDEE QUALITY SUPERVISOR
[2020-04-17 13:58] VITALS: BP 130/70; PULSE 81; RESP 17; TEMP 36.6; O2SAT 96
--- NOTE | 2020-04-17 15:57 | CHAPLAIN ---
Type of Pastoral Visit _x__ Initial Visit ___ Follow-up Visit ___ On-call Visit ___ General Patient Visit ___ Spiritual Assessment ___ Family Conference ___ Bereavement ___ Rapid Response ___ Code Blue ___ Other (describe below) Pastoral Care Referral From _x__ Patient ___ Family ___ Nurse ___ Physician ___ Whirley Operator ___ Treating Plant Supervisor ___ Other (describe below) Sacrament/Intervention _x__ Active listening ___ Anointing ___ Congregational ___ Bereavement ___ Communion _x__ Jacinta exploration ___ _x__ Life review _x__ Prayer ___ Reconciliation ___ Sacrament of Sick _x__ Supportive presence ___ Wedding ___ Other (describe below) Pastoral Comments
[2020-04-17] MEDS: MELATONIN 10 MG TABLET PO (21:05)
[2020-04-17] MEDS: Pramipexole Di-HCl 0.5 MG Tablet PO (21:05)
[2020-04-18 06:13] VITALS: BP 136/54; PULSE 75; RESP 16; TEMP 36.2; O2SAT 98
[2020-04-18] MEDS: Polyethylene Glycol 3350 17 GM PACKET PO (06:15)
[2020-04-18] MEDS: Senna/Docusate Sodium 1 Tablet PO ×2 (06:15→16:32)
[2020-04-18] MEDS: Lisinopril 20 MG Tablet PO (06:15)
[2020-04-18] MEDS: Menthol/Lanolin/Calamine/Znox 113 GM Tube 1 APPLIC TOPICAL ×2 (06:17→16:31)
[2020-04-18] MEDS: Pyridoxine HCl 100 MG Tablet PO (08:23)
[2020-04-18] MEDS: Aspirin E.C. 81 MG Tablet PO (08:24)
[2020-04-18] MEDS: Iron Polysaccharide Complex 150 MG CAPSULE PO (08:24)
[2020-04-18] MEDS: Ascorbic Acid 500 MG Tablet PO (08:24)
[2020-04-18 14:20] VITALS: BP 127/39; PULSE 64; RESP 16; TEMP 37.1; O2SAT 94
--- NOTE | 2020-04-18 14:38 | CASEMGMT ---
Addendum entered by Joana Forte 04/18/20 16:46: Son returned phone call. Answered further questions and reexplained transfer to SNF nonskilled and part B therapies for son. Son stated he would follow-up with pt to have final decision. Original Note: Social Work Left message with son to f/u on DC plans. Therapy inquired about doing family training if pt were to go home. Will continue to follow. Joana Forte, SANDEE ELECTRICIAN HELPER POWERHOUSE
[2020-04-18] MEDS: 0.9% Saline Lock 10 ML Syringe IV (16:32)
--- NOTE | 2020-04-18 16:47 | CASEMGMT ---
Social Work Spoke with son whom decided pt transfer to [facility] 04/20. [facility] to call son to go over pricing and details. Notified insurance C.M. Left message with [facility]missions to confirm transfer. Will schedule w/c transport. Plan: DC to [facility] 04/20 nonskilled, part B therapies, to continue IVS until receives WBS and can be reskilled. Joana Forte, PUBLIC RELATIONS MANAGER MANUFACTURING
[2020-04-18] MEDS: MELATONIN 10 MG TABLET PO (20:30)
[2020-04-18] MEDS: Pramipexole Di-HCl 0.5 MG Tablet PO (20:31)
--- NOTE | 2020-04-18 20:50 | DCINST_ITS ---
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) You will use the following diet at home:: No restrictions, Regular Your food should be the consistency of: Regular Your liquids should be the consistency of: Regular/Thin Discharge Activity: Return to Normal Activity, May Shower, Use Walker Weight Bearing Status: Toe touch weight bearing Keep extremity elevated above heart level: Left Leg Call your doctor if you observe: Fever of 101 or Higher, Inability to urinate, Inability to have a bowel movement, Shortness of breath, Chest pain, Uncontrolled pain Allergies/Adverse Reactions: Allergies hydroxychloroquine [From Plaquenil] Allergy (Verified 02/10/20 18:43) NEEDS FOLLOW-UP Medications to take at Discharge Cholecalciferol (VIT D3) [Vitamin D3] 1,000 unit PO DAILY 02/10/20 Lisinopril [Zestril] 20 mg PO DAILY 02/10/20 Acetaminophen [Tylenol] 1,000 mg PO Q6H PRN PRN tab 02/27/20 Melatonin 10 mg PO QHS tab 02/27/20 Ascorbic Acid [Vitamin C] 500 mg PO DAILY 03/17/20 Aspirin E.C. [Ecotrin] 81 mg PO DAILY@0800 03/17/20 Iron Polysaccharide Complex [Ferrex 150] 150 mg PO DAILYCM 03/17/20 Polyethylene Glycol 3350 [Miralax] 17 gm PO DAILY 03/17/20 Pramipexole Di-HCl [Mirapex] 0.5 mg PO QHS 03/17/20 Pyridoxine HCl [Vitamin B-6] 100 mg PO DAILY@0800 03/17/20 0.9 % NaCl (Sterile) Posiflush [0.9% NaCl (Sterile) Posiflush] 10 - 40 ml IV UD PRN disp.syrin 04/18/20 0.9% Saline Lock 10 - 40 ml IV UD PRN syringe 04/18/20 Acetaminophen [Tylenol] 1,000 mg PO Q6H PRN PRN tablet 04/18/20 Ascorbic Acid [Vitamin C] 500 mg PO DAILY@0800 tablet 04/18/20 Bisacodyl [Dulcolax] 10 mg RECTAL DAILY PRN suppos. 04/18/20 Heparin Pf Lock 10 units/ml 50 units IV UD PRN syringe 08/12/20 Hydrocortisone 2.5% Crm [Hytone] 1 applic TOPICAL BID PRN PRN tube 04/18/20 Lactobacillus Acidophilus [Acidophilus] 1 tablet PO BID tablet 04/18/20 Melatonin 10 mg PO QHS tablet 04/18/20 Menthol/Lanolin/Calamine/Znox [Calmoseptine Ointment] 1 applic TOPICAL BID tube 04/18/20 Senna/Docusate Sodium [Senokot-S] 1 tablet PO BID tablet 04/18/20 Vancomycin IV 1,250 mg IV Q24H vial 04/18/20 Vancomycin IV Pharmacy to Dose 1 ea IV X1 PRN each 04/18/20 Primary Care Physician: Jaye Rodriguez MD [Primary Care Provider] - Please follow up with your Primary Care Physician in: 1 week. Test Results: Test results from this visit will be discussed in further detail at your follow- up appointment, if applicable. Please Follow Up With: Jaye Rodriguez MD When: 1 week. Please Follow Up With: ELOINA Marion (Dr Roldan creative assistant) When: F/U in 4 weeks Please Follow Up With: [facility] Gwendolyn D Proposed Discharge Date: 04/20/20
--- NOTE | 2020-04-18 20:53 | DS.PCM_ITS ---
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) - Secondary Discharge Diagnosis Chronic Problems: Chronic Problems Osteoarthritis of left hip (Chronic) Body mass index (bmi) 31.0-31.9, adult (Chronic) Hypertension (Chronic) Osteopenia (Chronic) Osteoarthritis (Chronic) Restless leg syndrome (Chronic) Hearing loss (Chronic) Hyperparathyroidism (Chronic) Tobacco abuse (Chronic) Hospital Course and Treatment Imaging Results: 03/17/20 17:58 Diet: Regular Diet Food consistency:: Regular Liquid Consistency:: Regular/Thin Is pt able to select menu?: Yes Labs (Last 48 Hours) 04/17/20 04/17/20 05:15 05:15 WBC 5.1 RBC 3.05 L Hgb 9.4 L Hct 29.0 L MCV 95.1 MCH 30.8 MCHC 32.4 RDW Std Deviation 52.7 H RDW Coeff of Danny 15.1 H Plt Count 262 MPV 8.9 Immature Gran % (Auto) 1.200 H Neut % (Auto) 60.9 Lymph % (Auto) 15.6 L [place] % (Auto) 9.7 Eos % (Auto) 10.8 H Baso % (Auto) 1.8 H Absolute Neuts (auto) 3.1 Absolute Lymphs (auto) 0.79 L Nucleated RBC % 0 Sodium 138 Potassium 4.1 Chloride 105 Carbon Dioxide 26.0 Anion Gap 7 BUN 13 Creatinine 0.58 Estim Creat Clear Calc 31.04 Est GFR (MDRD) Af Amer 127 Est GFR (MDRD) Non-Af 105 BUN/Creatinine Ratio 22.4 H Glucose 82 Calcium 8.3 L Operations: None Procedures: None Summary of Care Provided: The patient is a 84 year old Female with below past medical history hospitalized for periprosthetic left femur fracture, underwent repair with longer lorri 03/15/[address] Roldan, admitted to TCU with debility, here for rehabilitation, strengthening, prior to discharge home with family. Dr. Feldman treated left hip MRSE prosthetic joint infection, Vancomycin IV until 05/04/2020, then oral doxycycline. Discharge to [facility] nonskilled, part B therapies, continue IV Vancomycin until receives weight bearing status and can be reskilled. 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) - Physical Exam Vitals/I&O's: Vital Signs Temp Pulse Resp BP Pulse Ox 98.7 F 64 16 127/39 H 94 04/18/20 14:20 04/18/20 14:20 04/18/20 14:20 04/18/20 14:20 04/18/20 14:20 Oxygen Delivery Method Room Air Weight: 73.391 kg Body Mass Index (BMI) 32.3 Intake and Output for Last 24 Hours 04/16/20 04/17/20 04/18/20 23:59 23:59 23:59 Intake Total 1115 / 1115 1135 / 1135 480 / 480 Output Total 500 / 500 1400 / 1400 300 / 300 Balance 615 / 615 -265 / -265 180 / 180 Current Medications Acetaminophen (Tylenol) 1,000 mg PO Q6H PRN PRN PRN Reason: Pain Score 1-3/10 Last Admin: 03/27/20 11:46 Dose: 1,000 mg Documented by: Ascorbic Acid (Vitamin C) 500 mg PO DAILY@0800 [facility] Last Admin: 04/18/20 08:24 Dose: 500 mg Documented by: Aspirin (Ecotrin) 81 mg PO DAILY@0800 [facility] Last Admin: 04/18/20 08:24 Dose: 81 mg Documented by: Bisacodyl (Dulcolax) 10 mg RECTAL DAILY PRN PRN Reason: Constipation Last Admin: 03/25/20 13:17 Dose: 10 mg Documented by: Calamine/Phenol (Calmoseptine Ointment) 1 applic TOPICAL BID [facility]; Protocol Last Admin: 04/18/20 16:31 Dose: 1 applicatio Documented by: Cholecalciferol (Vitamin D (25mcg)) 1,000 unit PO DAILY [facility] Last Admin: 04/18/20 06:15 Dose: 1,000 unit Documented by: Heparin Sodium (Beef Lung) () 50 units IV UD PRN PRN Reason: PICC Line Heparin Flush Hydrocortisone (Hytone) 1 applic TOPICAL BID PRN PRN; Protocol PRN Reason: ITCHING Vancomycin IV Pharmacy to Dose (1 ea/ Sodium Chloride) 500 mls @ 250 mls/hr IV X1 PRN; Protocol PRN Reason: Rx to Dose Sodium Chloride () 250 mls @ 15 mls/hr IV .[id number] PRN PRN Reason: Saline Flush Last Infusion: 04/18/20 16:37 Dose: 0 mls/hr Documented by: Sodium Chloride () 250 mls @ 15 mls/hr IV .[id number] PRN PRN Reason: Additional IVPB Infusion Last Infusion: 04/11/20 19:21 Dose: 0 mls/hr Documented by: Vancomycin HCl 1,250 mg/ (Sodium Chloride) 275 mls @ 167 mls/hr IV Q24H [facility] Stop: 05/04/20 22:00 Last Admin: 04/18/20 16:36 Dose: 167 mls/hr Documented by: Lactobacillus Acidophilus (Acidophilus) 1 tablet PO BID [facility] Last Admin: 04/18/20 16:32 Dose: 1 tablet Documented by: Lisinopril (Zestril) 20 mg PO DAILY [facility] Last Admin: 04/18/20 06:15 Dose: 20 mg Documented by: Melatonin (Melatonin) 10 mg PO QHS [facility] Last Admin: 04/18/20 20:30 Dose: 10 mg Documented by: Oxycodone HCl (Oxyir) 2.5 mg PO Q4H PRN PRN PRN Reason: Pain Score 4-10/10 Last Admin: 03/27/20 11:45 Dose: 2.5 mg Documented by: Polyethylene Glycol (Miralax) 17 gm PO DAILY [facility] Last Admin: 04/18/20 06:15 Dose: 17 gm Documented by: [facility]accharide [facility] Admin: 04/18/20 08:24 Dose: 150 mg Documented by: Pramipexole Dihydrochloride (Mirapex) 0.5 mg PO QHS [facility] Last Admin: 04/18/20 20:31 Dose: 0.5 mg Documented by: Pyridoxine HCl (Vitamin B-6) 100 mg PO DAILY@0800 [facility] Last Admin: 04/18/20 08:23 Dose: 100 mg Documented by: Senna/Docusate Sodium (Senokot-S, Leah-Colace) 1 tablet PO BID [facility] Last Admin: 04/18/20 16:32 Dose: 1 tablet Documented by: Sodium Chloride () 10 - 40 ml IV UD PRN PRN Reason: Open End PICC Flush Last Admin: 04/18/20 16:32 Dose: 20 ml Documented by: Sodium Chloride (0.9% Nacl (Sterile) Posiflush) 10 - 40 ml IV UD PRN PRN Reason: Port access or dressing change Discharge Diet: No Restrictions Discharge Activity: Return to Normal Activity, May Shower, Use Walker Weight Bearing Status: Toe touch weight bearing Keep extremity elevated above heart level: Left Leg Call your doctor if you observe: Fever of 101 or Higher, Inability to urinate, Inability to have a bowel movement, Shortness of breath, Chest pain, Uncontrolled pain Home Medications: Medications to take at Discharge Cholecalciferol (VIT D3) [Vitamin D3] 1,000 unit PO DAILY 02/10/20 Lisinopril [Zestril] 20 mg PO DAILY 02/10/20 Acetaminophen [Tylenol] 1,000 mg PO Q6H PRN PRN tab 02/27/20 Melatonin 10 mg PO QHS tab 02/27/20 Ascorbic Acid [Vitamin C] 500 mg PO DAILY 03/17/20 Aspirin E.C. [Ecotrin] 81 mg PO DAILY@0803/17/20 Iron Polysaccharide Complex [Ferrex 150] 150 mg PO DAILYCM 03/17/20 Polyethylene Glycol 3350 [Miralax] 17 gm PO DAILY 03/17/20 Pramipexole Di-HCl [Mirapex] 0.5 mg PO QHS 03/17/20 Pyridoxine HCl [Vitamin B-6] 100 mg PO DAILY@0800 03/17/20 0.9 % NaCl (Sterile) Posiflush [0.9% NaCl (Sterile) Posiflush] 10 - 40 ml IV UD PRN disp.syrin 04/18/20 0.9% Saline Lock 10 - 40 ml IV UD PRN syringe 04/18/20 Acetaminophen [Tylenol] 1,000 mg PO Q6H PRN PRN tablet 04/18/20 Ascorbic Acid [Vitamin C] 500 mg PO DAILY@0800 tablet 04/18/20 Bisacodyl [Dulcolax] 10 mg RECTAL DAILY PRN suppos. 04/18/20 Heparin Pf Lock 10 units/ml 50 units IV UD PRN syringe 04/18/20 Hydrocortisone 2.5% Crm [Hytone] 1 applic TOPICAL BID PRN PRN tube 04/18/20 Lactobacillus Acidophilus [Acidophilus] 1 tablet PO BID tablet 04/18/20 Melatonin 10 mg PO QHS tablet 04/18/20 Menthol/Lanolin/Calamine/Znox [Calmoseptine Ointment] 1 applic TOPICAL BID tube 04/18/20 Senna/Docusate Sodium [Senokot-S] 1 tablet PO BID tablet 04/18/20 Vancomycin IV 1,250 mg IV Q24H vial 04/18/20 Vancomycin IV Pharmacy to Dose 1 ea IV X1 PRN each 04/18/20 Primary Care Physician: Jaye Rodriguez MD [Primary Care Provider] - Please follow up with your Primary Care Physician in: 1 week. Please Follow Up With: Jaye Rodriguez MD When: 1 week. Please Follow Up With: ELOINA Marion (Dr Roldan virtual customer assistant) When: F/U in 4 weeks Please Follow Up With: [facility] Entrance D Disposition: Asstd Living/Non-Skill NH Minutes spent on discharge:: 35 Patient Condition:: Stable Medical Necessity - Tobacco Use Smoking Status: Current some day smoker Tobacco Use: Cigarettes Meaningful Use Info Meaningful Use Diagnoses (Choose all that apply): None applicable
--- NOTE | 2020-04-18 20:56 | TREXTCAR_ITS ---
- Diet 03/17/20 17:58 Diet: Regular Diet Food consistency:: Regular Liquid Consistency:: Regular/Thin Is pt able to select menu?: Yes - Routine Orders/Code Status Suppository Type: Dulcolax 10mg Suppository Frequency: Daily PRN Code Status: Full Code - Wound(s) L hip Wound Type: Surgical Incision Dressing Change: Dry Sterile Dressing - Therapies Weight Bearing: Toe-touch weight bearing Extremity Affected:: Left Lower - Problem/Diagnosis (1) Periprosthetic fracture around internal prosthetic left hip joint Status: Acute Current Visit: Yes (2) Debility Status: Acute Current Visit: No (3) Osteoarthritis of left hip Status: Chronic Current Visit: No (4) Body mass index (bmi) 31.0-31.9, adult Status: Chronic Current Visit: No (5) Hypertension Status: Chronic Current Visit: No (6) Osteopenia Status: Chronic Current Visit: No (7) Osteoarthritis Status: Chronic Current Visit: No (8) Restless leg syndrome Status: Chronic Current Visit: No (9) Hearing loss Status: Chronic Current Visit: No (10) Hyperparathyroidism Status: Chronic Current Visit: No (11) Tobacco abuse Status: Chronic Current Visit: No - Allergies/Procedures Done in Hospital Allergies/Adverse Reactions: Allergies hydroxychloroquine [From Plaquenil] Allergy (Verified 02/10/20 18:43) NEEDS FOLLOW-UP - Type of Care/Length of Stay Estimated LOS: Convalescent Care Less Than 30 days Type of Care Needed: Intermediate Rehab Potential: Fair Prognosis: Fair - Additional Orders/Day of Discharge Day of Discharge: 04/20/20 - Dietary and Speech Recommendations Dietitian Recommendations/Changes: [facility] - Follow Up Care Primary Care Physician: Jaye Rodriguez MD [Primary Care Provider] - Please follow up with your Primary Care Physician in: 1 week. Please Follow Up With: Jaye Rodriguez MD When: 1 week. Please Follow Up With: ELOINA Marion (Dr Roldan personal assistant) When: F/U in 4 weeks Please Follow Up With: [facility] D
[2020-04-19] MEDS: Polyethylene Glycol 3350 17 GM PACKET PO (06:22)
[2020-04-19] MEDS: Senna/Docusate Sodium 1 Tablet PO ×2 (06:24→17:49)
[2020-04-19] MEDS: Lisinopril 20 MG Tablet PO (06:24)
[2020-04-19] MEDS: Menthol/Lanolin/Calamine/Znox 113 GM Tube 1 APPLIC TOPICAL ×2 (06:25→17:49)
[2020-04-19 06:26] VITALS: BP 125/63; PULSE 61; RESP 16; TEMP 36.9; O2SAT 97
[2020-04-19] MEDS: Aspirin E.C. 81 MG Tablet PO (07:47)
[2020-04-19] MEDS: Iron Polysaccharide Complex 150 MG CAPSULE PO (07:48)
[2020-04-19] MEDS: Pyridoxine HCl 100 MG Tablet PO (07:48)
[2020-04-19] MEDS: Ascorbic Acid 500 MG Tablet PO (07:48)
[2020-04-19 12:54] VITALS: PULSE 92; RESP 16; O2SAT 94
[2020-04-19 16:09] VITALS: BP 128/70; PULSE 92; RESP 16; TEMP 37.3; O2SAT 94
--- NOTE | 2020-04-19 18:21 | NURSING ---
Dressing on L hip dry. Left open to air at this time.
[2020-04-19] MEDS: Pramipexole Di-HCl 0.5 MG Tablet PO (20:47)
[2020-04-19] MEDS: MELATONIN 10 MG TABLET PO (20:47)
[2020-04-20] MEDS: Polyethylene Glycol 3350 17 GM PACKET PO (06:26)
[2020-04-20] MEDS: Senna/Docusate Sodium 1 Tablet PO (06:27)
[2020-04-20] MEDS: Menthol/Lanolin/Calamine/Znox 113 GM Tube 1 APPLIC TOPICAL (06:27)
[2020-04-20] MEDS: Lisinopril 20 MG Tablet PO (06:27)
[2020-04-20 06:40] VITALS: BP 155/55; PULSE 61; RESP 18; TEMP 36.4; O2SAT 97
[2020-04-20] MEDS: Aspirin E.C. 81 MG Tablet PO (07:52)
[2020-04-20] MEDS: Iron Polysaccharide Complex 150 MG CAPSULE PO (07:52)
[2020-04-20] MEDS: Pyridoxine HCl 100 MG Tablet PO (07:52)
[2020-04-20] MEDS: Ascorbic Acid 500 MG Tablet PO (07:52)
[2020-04-20 08:45] VITALS: PULSE 93; RESP 16
--- NOTE | 2020-04-20 10:53 | NURSING ---
Report called to Roland SANTOS.
[2020-04-20 12:45] VITALS: BP 112/57; PULSE 89; RESP 16; TEMP 37; O2SAT 99
== END 2020-04-20 12:47 | disposition skilled nursing facility (03) | DRG 561 ==
PROVIDERS: Internal Medicine Infectious Disease; Admitting Provider Family Medicine Geriatric Medicine; PCP Internal Medicine; Visit Provider Family Medicine Geriatric Medicine
DX: M97.02XD Periprosthetic fracture around internal prosthetic left hip joint, subsequent encounter (principal); I10 Essential (primary) hypertension; G25.81 Restless legs syndrome; E21.3 Hyperparathyroidism, unspecified; F17.210 Nicotine dependence, cigarettes, uncomplicated; E55.9 Vitamin D deficiency, unspecified; D50.9 Iron deficiency anemia, unspecified
CPT/HCPCS: 36415; 36569; 80048; 80202; 85025; 87635; 97110; 97162; 97166; 97530; 97535; 97542; 97802; 99406; G2023; J7040; J7050; A4216; U0003

== ENCOUNTER → 2020-07-31 14:05 | Outpatient (CLI) | payer MEDICARE, SELFPAY ==
[2020-07-31 14:50] LABS: Hematocrit 36.1 % (37-47); Hemoglobin 11.7 g/dL (12.0-15.0); Mean Corp Hgb Conc 32.4 g/dL (32-36); Mean Corpuscular Hgb 29.5 pg (27.0-32.0); Mean Corpuscular Volume 90.9 fL (81-99); Mean Platelet Vol. 10.2 fl (6.2-12.0); Platelet Count 273 K/mm3 (150-450); RBC Distribution Width SD 59.7 fl (35.1-43.9); Red Blood Count 3.97 M/mm3 (4.2-5.4); White Blood Count 6.9 K/mm3 (4.4-11.0)
[2020-07-31 15:04] LABS: ALB/GLOB Ratio 0.9 RATIO (0.9-2.4); AST(SGOT) 20 U/L (15-37); Alanine Aminotransfer ALT/SGPT 22 U/L (13-56); Albumin, Serum 3.2 g/dL (3.2-5.0); Alkaline Phosphatase 168 U/L (45-117); Anion Gap 7 (5-15); BUN 18 mg/dL (7-18); BUN/Creat Ratio 26.4 RATIO (10-20); Calcium,Total 8.8 mg/dL (8.5-10.1); Chloride 113 mmol/L (98-107); Creatinine, Serum 0.68 mg/dL (0.55-1.02); EST Glomerular Filtration Rate 87 mL/min (>60); Est Glom Filt Rate - Afr Amer 105 mL/min (>60); Globulin 3.6 g/dL (2.2-4.2); Glucose 90 mg/dL (74-106); Potassium 3.7 mmol/L (3.5-5.1); Protein, Total 6.8 g/dL (6.4-8.2); Sodium Level 144 mmol/L (136-145)
[2020-07-31 15:14] LABS: Vitamin D,25 Hydroxy 40.9 ng/mL
== END ==
PROVIDERS: PCP Internal Medicine; Referring Provider Internal Medicine; Visit Provider Internal Medicine
DX: T81.41XD Infection following a procedure, superficial incisional surgical site, subsequent encounter (principal); I10 Essential (primary) hypertension
CPT/HCPCS: 80053; 82306; 85027

== ENCOUNTER 2021-03-19 13:46 | Inpatient (IN) | payer MEDICARE, SELFPAY ==
[2021-03-19] VITALS (14 sets, daily range): BP systolic 63–109; BP diastolic 26–59; PULSE 73–98; RESP 14–18; TEMP 35.7–37.2; O2SAT 94–100; BMI 29.9; BMI 28.7
--- NOTE | 2021-03-19 14:15 | ED.RN ---
pt stood to get into bed remains asymptomatic. pt bp reading hypotensive. iv access obtained and fluid via pressure bag initated
--- NOTE | 2021-03-19 14:27 | EDS_ITS ---
HPI History of Present Illness Chief Complaint: Hypotension Detail of Chief Complaint: Hypotension for several weeks Informant: patient Narrative Narrative: Patient presents to the emergency department complaint of low blood pressure that started and she thinks a couple of weeks ago. Patient has a visiting nurse that comes in with her home and checks her blood pressure and gives her her meds. Patient states that over the last couple weeks her pressures have been running on the low side but not as low as today and they was noted to have systolics in the 60s so was referred to the emergency department. Patient denies feeling lightheaded or dizzy. Patient does state that she started having diarrhea about 5 days ago and today has already had 2 watery stools. Patient currently on doxycycline for prior hip infection that she had r elated to recent hip replacement. Patient denies any fevers or chills or sweats. Patient denies any chest pain or abdominal pain. Prior similar symptoms: [facility] Medical History (Updated 03/19/21 @ 15:[address] Rach Bass, DO) Hypertension Home Medications cholecalciferol (vitamin D3) 1,000 unit PO DAILY 02/10/20 [History Last Taken Unknown] lisinopril 20 mg PO DAILY 02/10/20 [History Last Taken Unknown] melatonin 10 mg PO QHS tab 02/27/20 [Rx Last Taken Unknown] aspirin 81 mg PO DAILY@0800 03/17/20 [History Last Taken Unknown] polyethylene glycol 3350 17 gm PO DAILY 03/17/20 [History Last Taken Unknown] polysaccharide iron complex 150 mg PO DAILYCM 03/17/20 [History Last Taken Unknown] pramipexole 0.5 mg PO QHS 03/17/20 [History Last Taken Unknown] pyridoxine (vitamin B6) 100 mg PO DAILY@0800 03/17/20 [History Last Taken U nknown] acidophilus-pectin, citrus 1 tab PO BID tab 04/18/20 [Rx Last Taken Unknown] ascorbic acid (vitamin C) 500 mg PO DAILY@0800 tab 04/18/20 [Rx Last Taken Unknown] sennosides-docusate sodium 1 tab PO BID tab 04/18/20 [Rx Last Taken Unknown] Doxycycline 100 mg PO BID 11/06/20 [History Last Taken Unknown] Vitamin K2 PO DAILY 11/06/20 [History Last Taken Unknown] Furosemide 20 mg PO QODAY 11/19/20 [History Last Taken Unknown] calcium carbonate-vitamin D3 1 each PO 12/17/20 [History Last Taken Unknown] Allergy/AdvReac Type Severity Reaction Status Date / Time hydroxychloroquine Allergy NEEDS Verified 02/10/20 18:43 [From Plaquenil] FOLLOW-UP Surgical History (Updated 03/19/21 @ 14:19 by [place]) History of hip replacement Social History Smoking Status: Current some day smoker tobacco type: cigarettes ROS ROS ED ROS Narrative Mild generalized weakness Constitutional Constitutional ED: Reports systems reviewed and no addt'l complaints, except as documented; Denies body ache(s), change in weight or chills Eyes Eyes: Denies acute decrease in peripheral vision, change in vision, double vision or loss of vision ENT ENT ED: Reports none; Denies ear pain, lip swelling, loss taste/smell, neck pain, otalgia or sore throat Cardiovascular Cardiovascular: Reports none; Denies abdominal pain, chest pain with activity, leg edema, lightheadedness, palpitations, rapid heart rate or syncope Respiratory/Chest Respiratory/Chest: Reports none; Denies change in mental status, dry cough, dyspnea, hemoptysis, shortness of breath at rest or shortness of breath with exertion Gastrointestinal Gastrointestinal: Reports none and diarrhea; Denies abdominal pain, change in stool character, hematemesis, hematochezia, melena, rectal bleeding or vomiting Genitourinary Genitourinary ED: Reports none; Denies abdominal discomfort, anuria, dysuria, genital pain or polyuria Musculoskeletal Musculoskeletal: Reports none; Denies arthralgias, back pain, difficulty walking, extremity pain, muscle weakness or myalgias Integumentary Reports none; Denies abscess or rash Neurologic Neurologic: Reports none; Denies abnormal gait, confusion, focal weakness, frequent falls, headache(s), loss of vision, numbness, paresthesias, radicular pain, vertigo or weakness Psychiatric Psychiatric: Reports systems reviewed and no addt'l complaints, except as documented and none; Denies behavioral changes, confusion, difficulty concentrating, hallucinations, suicidal ideation, tactile hallucinations or visual hallucinations Endocrine Endocrinology: Denies none, cold intolerance, excessive sweating, fatigue or heat intolerance Hematologic/Lymphatic Hematologic/Lymphatic: Reports none; Denies anemia, easy bleeding or easy bruising Allergic/Immunologic Allergic/Immunologic ED: Denies as per HPI, none, lip swelling, mouth swelling, throat swelling, tongue swelling or hives EXAM Physical Exam Const Vital Signs: 03/19/21 13:46 03/19/21 14:18 03/19/21 14:19 Temperature 96.3 F L Temperature Source Temporal Pulse Rate 88 79 Respiratory Rate 18 16 Respiratory Effort Normal Respiratory Pattern Normal Blood Pressure 65/48 L 63/26 L Blood Pressure Mean 53 38 Pulse Ox 99 94 Oxygen Delivery Method Room Air Room Air 03/19/21 14:26 03/19/21 14:27 03/19/21 14:56 Temperature Temperature Source Pulse Rate 80 90 Respiratory Rate 18 16 Respiratory Effort Respiratory Pattern Blood Pressure 77/45 L 80/52 L 75/52 L Blood Pressure Mean 55 61 59 Pulse Ox 99 98 Oxygen Delivery Method Room Air 03/19/21 15:02 Temperature Temperature Source Pulse Rate 73 Respiratory Rate 15 Respiratory Effort Respiratory Pattern Blood Pressure 74/51 L Blood Pressure Mean 58 Pulse Ox 98 Oxygen Delivery Method Room Air Positive well nourished and well developed General Appearance ED: well developed and NAD HEENT Reports TM's clear and moist mucous membranes normocephalic and atraumatic; Negative for trauma or tenderness Tympanic Membrane ED: Yes TM's clear Eyes PERRL and EOMs intact bilaterally General Eye ED: Negative for pale conjunctiva or scleral icterus Neck no lymphadenopathy, supple and no JVD General: Negative for tenderness Chest Wall inspection of chest normal and palpation of chest normal Chest: Negative for tenderness Resp normal respiratory effort and clear to auscultation bilaterally Effort and Inspection: Negative for respiratory distress or pain with movement Auscultation: Negative for rhonchi, wheezes or diminished lung sounds Cardio regular rate, regular rhythm, S1 normal heart sound, S2 normal heart sound and no murmurs Peripheral Pulses: pulses 2+ throughout GI normal to inspection, nondistended, normoactive bowel sounds, soft to palpation, non-tender, non-distended and no masses Back/Spine no CVA tenderness and no thoracic nor lumbar tenderness Extremity normal to inspection Extremity Narrative: Patient has palpable radial pulses bilaterally. Dorsal pedal pulses are diminished bilaterally. General Extremety ED: Negative for edema General Extremity: Negative for edema Neuro oriented x3, CN's II-XII intact bilaterally, no sensory deficits noted and gait normal Sensorium / Orientation: awake, alert, oriented to person, oriented to place and oriented to time Motor Exam: strength 5/5 throughout and strength abnormal Psych mental status grossly normal Skin no rashes or lesions noted and no wounds MDM MDM MDM Narrative Medical decision making narrative: Patient's blood pressure responded to IV fluids. Patient is noted to have acute kidney injury suspected related to her diarrhea and GI losses. Stool was ordered for C. difficile as well as enteric pathogens. Case discussed with hospitalist will evaluate patient for admission. Lab Data Attestation: I reviewed the patient's lab results. Labs: Laboratory Results - last 24 hr 03/19/21 03/19/21 14:30 14:30 WBC 7.4 RBC 3.83 L Hgb 12.0 Hct 37.5 MCV 97.9 MCH 31.3 MCHC 32.0 RDW Std Deviation 49.7 H RDW Coeff of Danny 13.7 Plt Count 218 MPV 11.1 Immature Gran % (Auto) 0.900 Neut % (Auto) 69.0 Lymph % (Auto) 21.5 [place] % (Auto) 7.0 Eos % (Auto) 0.8 Baso % (Auto) 0.8 Absolute Neuts (auto) 5.1 Absolute Lymphs (auto) 1.59 Nucleated RBC % 0 Sodium 135 L Potassium 5.3 H Chloride 105 Carbon Dioxide 21.0 Anion Gap 9 BUN 78 H Creatinine 2.22 H Estim Creat Clear Calc 13.07 Est GFR (MDRD) Af Amer 27 L Est GFR (MDRD) Non-Af 22 L BUN/Creatinine Ratio 35.1 H Glucose 100 Calcium 8.6 Total Bilirubin 0.40 AST 33 ALT 32 Alkaline Phosphatase 136 H Troponin I High Sens 13.8 Total Protein 6.3 L Albumin 2.7 L Globulin 3.6 Albumin/Globulin Ratio 0.8 L Discharge Plan Triage Chief Complaint: Hypotension ED Provider: Rach Bass Dx/Rx/DC Orders Clinical Impression: Diarrhea, Acute kidney injury, Acute hypotension, Dehydration Prescriptions: No Action lisinopril 20 MG tablet 20 mg PO DAILY RF: 0 cholecalciferol (vitamin D3) 1,000 UNIT tablet 1,000 unit PO DAILY RF: 0 melatonin 10 MG tablet 10 mg PO QHS RF: 0 polyethylene glycol 3350 17 GM packet 17 gm PO DAILY RF: 0 aspirin 81 MG tablet 81 mg PO DAILY@0800 RF: 0 polysaccharide iron complex 150 MG capsule 150 mg PO DAILYCM RF: 0 pramipexole 0.5 MG tablet 0.5 mg PO QHS RF: 0 pyridoxine (vitamin B6) 100 MG tablet 100 mg PO DAILY@0800 RF: 0 sennosides-docusate sodium 1 TABLET tablet 1 tab PO BID RF: 0 ascorbic acid (vitamin C) 500 MG tablet 500 mg PO DAILY@0800 RF: 0 acidophilus-pectin, citrus 1 TABLET tablet 1 tab PO BID RF: 0 Vitamin K2 capsule PO DAILY RF: 0 Doxycycline 100 MG tablet 100 mg PO BID RF: 0 Furosemide tablet 20 mg PO QODAY RF: 0 calcium carbonate-vitamin D3 1 EACH tablet 1 each PO RF: 0 Primary Care Provider: Jaye Rodriguez Referrals: Jaye Rodriguez MD [Primary Care Provider] - Disposition Disposition: Acute Care Hospital [facility]
--- NOTE | 2021-03-19 14:27 | EKG12_ITS ---
Test Reason : Blood Pressure : / mmHG Vent. Rate : 072 BPM Atrial Rate : 072 BPM P-R Int : 184 ms QRS Dur : 092 ms QT Int : 390 ms P-R-T Axes : 051 -06 032 degrees QTc Int : 427 ms Normal sinus rhythm Minimal voltage criteria for LVH, may be normal variant Borderline ECG Confirmed by STEPHANIE DAILY, SPIKE ([id number]), health editor ZAHEER CHRISTINE ([id number]) on 03/20/2021 12:43:43 PM Referred By: DIONICIO Confirmed By:SPIKE BROWN MD
--- NOTE | 2021-03-19 14:37 | NURSING ---
NO OLD EKGS
[2021-03-19 14:47] LABS: Absolute Lymphocyte Count 1.59 X10^3/uL (0.83-4.51); Absolute Neutrophil Count 5.1 X10^3/uL (2.0-7.7); Basophil# 0.06 X10^3/uL; Basophil% 0.8 % (0-1); Eosinophil# 0.06 X10^3/uL; Eosinophils% 0.8 % (0-5); Hematocrit 37.5 % (37-47); Lymphocyte # 1.59 X10^3/ul (0.83-4.51); Lymphocyte % 21.5 % (19-41); Mean Corpuscular Hgb 31.3 pg (27.0-32.0); Mean Corpuscular Volume 97.9 fL (81-99); Mean Platelet Vol. 11.1 fl (6.2-12.0); Monocyte# 0.52 X10^3/uL; NRBC Flagged by Analyzer 0 % (0-5); Neutrophil # 5.08 X10^3/uL (2.7-7.7); Platelet Count 218 K/mm3 (150-450); RBC Distribution Width CV 13.7 % (11.6-14.6); RBC Distribution Width SD 49.7 fl (35.1-43.9); Red Blood Count 3.83 M/mm3 (4.2-5.4); White Blood Count 7.4 K/mm3 (4.4-11.0)
[2021-03-19] MEDS: 0.9% Normal Saline 1,000 ML 1000 ML IV (14:57)
[2021-03-19 15:02] LABS: ALB/GLOB Ratio 0.8 RATIO (0.9-2.4); AST(SGOT) 33 U/L (15-37); Alanine Aminotransfer ALT/SGPT 32 U/L (13-56); Albumin, Serum 2.7 g/dL (3.2-5.0); Alkaline Phosphatase 136 U/L (45-117); Anion Gap 9 (5-15); BUN 78 mg/dL (7-18); BUN/Creat Ratio 35.1 RATIO (10-20); Calcium,Total 8.6 mg/dL (8.5-10.1); Chloride 105 mmol/L (98-107); Creatinine, Serum 2.22 mg/dL (0.55-1.02); EST Glomerular Filtration Rate 22 mL/min (>60); Est Glom Filt Rate - Afr Amer 27 mL/min (>60); Estimated Creatinine Clearance 13.07 ml/min; Globulin 3.6 g/dL (2.2-4.2); Glucose 100 mg/dL (74-106); Potassium 5.3 mmol/L (3.5-5.1); Protein, Total 6.3 g/dL (6.4-8.2); Sodium Level 135 mmol/L (136-145); Troponin-I HS 13.8 pg/mL (3.0-53.7)
[2021-03-19] MEDS: 0.9% Normal Saline 1,000 ML 999 ML IV (15:38)
--- NOTE | 2021-03-19 15:43 | PCM.HP.STD ---
HPI - General General Date of Admission: 03/19/21 Date of Service: 03/19/21 Chief Complaint: Hypotensive, diarrhea x ~ 1 week. HPI Narrative The patient is an 85 y/o F w/ PMHx: HTN, HLD, Fe Deficiency anemia, RLS who presents to the [facility] ED on 03/19/21 with history of onset of diarrhea over the last 5 days noted to be watery in nature reported also being on antibiotics specifically doxycycline for recent hip infection associated with a recent hip replacement with no recent fevers, chills however not improving with difficulty maintaining appropriate hydration with low blood pressures over the last approximate 2 weeks however more severe over the last 5 days with GI losses prompting health care nurse to refer patient to the ED for evaluation. She notes having a prior L hip replacement, fell and had to have repeat surgical intervention and became infected. She denies any associated abdominal cramping, pain. Work-up in the ED included T 96.3, heart rate 88, initial BP 65/48 with improvement to 74/51--> 97/53, respiratory rate 18, 99% on room air, CBC with WBC 7.4, hemoglobin 12, platelet 218 without marked shift, CMP with sodium 135, potassium 5.3 noted to be slightly hemolyzed, BUN/creatinine 78/2.22, alk phos 136, troponin high-sensitivity 13.8 otherwise not marked appearing hepatic profile. ED staff unable to obtain lactic acid secondary to likely initial low BP. [facility] Medical History (Updated 03/19/21 @ 16:[address] Keily Barth MD) Hypertension Osteoarthritis Prosthetic joint infection of left hip Restless leg syndrome Tobacco abuse Home Medications cholecalciferol (vitamin D3) 1,000 unit PO DAILY 02/10/20 [History Last Taken Unknown] lisinopril 20 mg PO DAILY 02/10/20 [History Last Taken Unknown] melatonin 10 mg PO QHS tab 02/27/20 [Rx Last Taken Unknown] aspirin 81 mg PO DAILY@0800 03/17/20 [History Last Taken Unknown] polyethylene glycol 3350 17 gm PO DAILY 03/17/20 [History Last Taken Unknown] polysaccharide iron complex 150 mg PO DAILYCM 03/17/20 [History Last Taken Unknown] pramipexole 0.5 mg PO QHS 03/17/20 [History Last Taken Unknown] pyridoxine (vitamin B6) 100 mg PO DAILY@0800 07/11/20 [History Last Taken Unknown] acidophilus-pectin, citrus 1 tab PO BID tab 04/18/20 [Rx Last Taken Unknown] ascorbic acid (vitamin C) 500 mg PO DAILY@0800 tab 04/18/20 [Rx Last Taken Unknown] sennosides-docusate sodium 1 tab PO BID tab 04/18/20 [Rx Last Taken Unknown] Doxycycline 100 mg PO BID 11/06/20 [History Last Taken Unknown] Vitamin K2 PO DAILY 11/06/20 [History Last Taken Unknown] Furosemide 20 mg PO QODAY 11/19/20 [History Last Taken Unknown] calcium carbonate-vitamin D3 1 each PO 12/17/20 [History Last Taken Unknown] Allergy/AdvReac Type Severity Reaction Status Date / Time hydroxychloroquine Allergy NEEDS Verified 02/10/20 18:43 [From Plaquenil] FOLLOW-UP Family History (Updated 03/19/21 @ 16:[address] Keily Barth MD) Mother Dementia Father Heart disease Hypertension CVA (cerebral vascular accident) CAD (coronary artery disease) Myocardial infarction Surgical History (Updated 03/19/21 @ 16:[address] Keily Barth MD) History of hip replacement History of hysterectomy S/P carpal tunnel release S/P parathyroidectomy S/P tonsillectomy Status post total knee replacement, left Social History (Updated 03/19/21 @ 16:[address] Keily Barth MD) household members: family Smoking Status: Current every day smoker tobacco type: cigarettes alcohol intake: never substance use type: does not use ROS ROS Narrative Admission Review of Systems: CONSTITUTIONAL: No weight loss, fever, chills, + weakness or fatigue. HEENT: Eyes: No visual loss, blurred vision, double vision or yellow sclerae. Ears, Nose, Throat: No hearing loss, sneezing, congestion, runny nose or sore throat. SKIN: No rash or itching, lesions, wounds. CARDIOVASCULAR: No chest pain, chest pressure or chest discomfort, palpitations, edema, orthopnea, syncopal events. RESPIRATORY: No shortness of breath, cough or sputum, wheezing, hemoptysis. GASTROINTESTINAL: + anorexia, diarrhea, No nausea, vomiting, abdominal pain, melena, BRBPR. GENITOURINARY: No dysuria, frequency, urgency or retention. NEUROLOGICAL: No headache, dizziness, syncope, paralysis, ataxia, numbness or tingling in the extremities, focal weakness, change in bowel or bladder control, seizure. MUSCULOSKELETAL: + muscle, back pain, joint pain or stiffness. HEMATOLOGIC: + anemia, bleeding or bruising. LYMPHATICS: No enlarged nodes. No history of splenectomy. PSYCHIATRIC: No history of depression or anxiety. ENDOCRINOLOGIC: No reports of sweating, cold or heat intolerance. No polyuria or polydipsia. ALLERGIES: No history of asthma, hives, eczema or rhinitis. Vital Signs Vital Signs Vital Signs: 03/19/21 13:46 03/19/21 14:18 03/19/21 14:19 Temperature 96.3 F L Temperature Source Temporal Pulse Rate 88 79 Respiratory Rate 18 16 Respiratory Effort Normal Respiratory Pattern Normal Blood Pressure 65/48 L 63/26 L Blood Pressure Mean 53 38 Pulse Ox 99 94 Oxygen Delivery Method Room Air Room Air 03/19/21 14:26 03/19/21 14:27 03/19/21 14:56 Temperature Temperature Source Pulse Rate 80 90 Respiratory Rate 18 16 Respiratory Effort Respiratory Pattern Blood Pressure 77/45 L 80/52 L 75/52 L Blood Pressure Mean 55 61 59 Pulse Ox 99 98 Oxygen Delivery Method Room Air 03/19/21 15:02 Temperature Temperature Source Pulse Rate 73 Respiratory Rate 15 Respiratory Effort Respiratory Pattern Blood Pressure 74/51 L Blood Pressure Mean 58 Pulse Ox 98 Oxygen Delivery Method Room Air Weight Weight: 153 lb Body Mass Index (BMI) 29.9 Physical Exam Narrative Physical Examination: General: Awake, alert, oriented x 3 and cooperative, mildly hard of hearing, laying in the ED bed, fatigued, BP is improving, denies any lightheadedness or dizziness. Skin: Normal color, normal turgor, no icterus, no cyanosis except occasional staged ecchymoses. HEENT: AT/NC, EOMI, PERRLA, dry MM, no carotid bruits or JVD noted. Lungs: Diminished, greater bases, moderate effort, no evidence of any distress, no rales, ronchi or wheezing. Heart: Regular rate and rhythm; no gallop, rub audible. Abdomen: Soft, NTTP, mildly distended, hyperactive bowel sounds, no HSM. Extremities: No cyanosis, clubbing, or edema. Neurological: Patient awake, alert, oriented as noted, cognitive function appears baseline intact; pupils equally reactive to light and accommodation, cranial nerves II-XII grossly normal, moving all 4 extremities, no focal deficits, strength severely global decrease secondary to acute presentation. Psychiatric: Affect appears fatigued otherwise normal, no acute evidence of depressive or anxiety feelings. Results Lab / Micro Data Result Diagrams: 03/19/21 14:30 03/19/21 14:30 Labs: Laboratory Results - last 24 hr 03/19/21 14:30: WBC 7.4, RBC 3.83 L, Hgb 12.0, Hct 37.5, MCV 97.9, MCH 31.3, MCHC 32.0, RDW Std Deviation 49.7 H, RDW Coeff of Danny 13.7, Plt Count 218, MPV 11.1, Immature Gran % (Auto) 0.900, Neut % (Auto) 69.0, Lymph % (Auto) 21.5, [place] % (Auto) 7.0, Eos % (Auto) 0.8, Baso % (Auto) 0.8, Absolute Neuts (auto) 5.1, Absolute Lymphs (auto) 1.59, Nucleated RBC % 0 03/19/21 14:30: Sodium 135 L, Potassium 5.3 H, Chloride 105, Carbon Dioxide 21.0, Anion Gap 9, BUN 78 H, Creatinine 2.22 H, Estim Creat Clear Calc 13.07, Est GFR (MDRD) Af Amer 27 L, Est GFR (MDRD) Non-Af 22 L, BUN/Creatinine Ratio 35.1 H, Glucose 100, Calcium 8.6, Total Bilirubin 0.40, AST 33, ALT 32, Alkaline Phosphatase 136 H, Troponin I High Sens 13.8, Total Protein 6.3 L, Albumin 2.7 L, Globulin 3.6, Albumin/Globulin Ratio 0.8 L Assessment & Plan Assessment/Plan (1) Acute hypotension: (2) Acute kidney injury: (3) Diarrhea: QUALIFIERS: Diarrhea type: unspecified type Qualified Code(s): R19.7 - Diarrhea, unspecified PLAN: The patient is an 85 y/o F w/ PMHx: HTN, HLD, Fe Deficiency anemia, RLS who presents to the [facility] ED on 03/19/21 with history of onset of diarrhea over the last 5 days noted to be watery in nature reported also being on antibiotics specifically doxycycline for recent hip infection associated with a recent hip replacement with no recent fevers, chills however not improving with difficulty maintaining appropriate hydration with low blood pressures over the last approximate 2 weeks however more severe over the last 5 days with GI losses prompting health care nurse to refer patient to the ED for evaluation. 1. Profuse Diarrhea, Possible Gastroenteritis, recent Abx Therapy w/ concern for Possible C-difficile colitis: Will admit to [facility], maintain on fall precautions, improved BP in the ED following hydration, will continue aggressive hydration, will obtain c diff, stool cx with repeat AM CBC. Currently as noted on doxycycline for hip replacement with infection thus suspect could be abx related. Will start oral vancomycin given this history. Will attempt to review records of prior hip cultures to ascertain abx needs, will consider concurrent ID involvement. PT, OT, CM consultation for discharge planning. 2. Acute kidney injury: Secondary to GI losses with diarrhea as noted. Admission BUN/Cr 78/2.22, prior baseline creatinine noted to be 0.5-0.6. Will continue to aggressively hydrate, hold nephrotoxic medications and repeat chemistry in AM. If no improvement would plan FeNa as well as renal ultrasound assessment if appropriate however given GI losses this is likely the etiology. 3. 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 Feldman, infectious disease, most recent noted culture with staph epidermidis 2+ from 02/25/2020 left hip drainage susceptible to doxycycline with significant resistance patterns in the insensitivities noted. May need to confer with Dr. Feldman given #1. 4. Hypertension: We will hold patient lisinopril as well as Lasix given acute kidney injury, hypertensive upon ED presentation, will restart regimen if clinically appropriate and improve renal function, as needed IV hydralazine if necessary. 5. Hyperlipidemia: Not on regimen, defer to outpatient. 6. Chronic anemia, iron deficiency: We will continue patient home iron supplementation, admission hemoglobin 12, stable, trend. 7. Restless leg syndrome: We will continue patient home Mirapex regimen. 8. DVT prophylaxis: SCDs, heparin. 9. CODE status: Patient SANIYA is her son Jaydon and living will is currently in place. Discussed CODE status at length including difference between FULL code, DNR-CCA and DNR-CC status. Following discussions about the differences in these status, requested DNR-CCA, no intubation status. Advanced Care Planning Face to Face Time: 16 minutes. Charges/Coding Visit Charges Inpatient E&M: 12476 Init Hosp L3 Procedures Hospitalists Procedures: 21851 Advncd Care Plan 30 Min
--- NOTE | 2021-03-19 15:59 | NURSING ---
PCU WHITE DIARRHEA, DEHYDRATION, HYPOTENSION, TICO
[2021-03-19 16:40] LABS: Magnesium 2.3 mg/dL (1.6-2.6); Phosphorus 4.6 mg/dL (2.5-4.9)
[2021-03-19] MEDS: 0.9% Normal Saline 1,000 ML 100 ML IV (18:01)
[2021-03-19] MEDS: Vancomycin 125 MG/5 ML Susp PO.SYRINGE PO (20:16)
[2021-03-19 20:40] LABS: Lactic Acid 2.1 mmol/L (0.4-1.9)
[2021-03-19 21:24] LABS: Mucous, Urine 0 SEEN /hpf (<or=2+); Red Blood Cells-Urine 0 SEEN /hpf (0-5); White Blood Cells 0 SEEN /hpf (0-5)
[2021-03-19 21:25] LABS: Color, Urine Yellow (Yellow); Glucose, Dipstick Normal (Normal); Ketone-Dipstick Negative (Negative); Leukocyte Esterase-Dipstick Negative /ul (Negative); Nitrite-Dipstick Negative (Negative); Occult Blood-Urine Negative /ul (Negative); Protein-Dipstick Negative (Negative); Urine Bilirubin Dipstick Negative (Negative); Urine Clarity Clear (Clear); Urine Urobilinogen Normal (Normal)
[2021-03-19] MEDS: Doxycycline 100 MG CAPSULE PO (21:28)
[2021-03-19] MEDS: Heparin Injection (Vial) 5,000 UNIT/ML VIAL 5000 UNIT SC (21:28)
[2021-03-19] MEDS: MELATONIN 10 MG TABLET PO (21:31)
[2021-03-19 21:34] LABS: Bacteria 1+ /hpf (None Seen); Hyaline Cast 10-25 SEEN /lpf (0-5); Squamous Epithelial Cells - UA 0-5 SEEN /hpf (5-10)
[2021-03-19] MEDS: Pramipexole Di-HCl 0.5 MG Tablet PO (22:23)
[2021-03-20] VITALS (14 sets, daily range): BP systolic 86–127; BP diastolic 45–57; PULSE 65–86; RESP 12–16; TEMP 36.3–36.9; O2SAT 95–99
[2021-03-20 00:01] LABS: Reflex Lactate? Y
[2021-03-20] MEDS: Vancomycin 125 MG/5 ML Susp PO.SYRINGE PO ×2 (00:35→06:30)
[2021-03-20 00:51] LABS: Lactic Acid 0.9 mmol/L (0.4-1.9)
[2021-03-20] MEDS: 0.9% Normal Saline 1,000 ML 100 ML IV ×2 (04:03→08:52)
[2021-03-20 05:22] LABS: Absolute Lymphocyte Count 1.78 X10^3/uL (0.83-4.51); Absolute Neutrophil Count 2.9 X10^3/uL (2.0-7.7); Basophil# 0.04 X10^3/uL; Basophil% 0.7 % (0-1); Eosinophil# 0.21 X10^3/uL; Eosinophils% 3.9 % (0-5); Hematocrit 29.1 % (37-47); Hemoglobin 9.4 g/dL (12.0-15.0); Lymphocyte # 1.78 X10^3/ul (0.83-4.51); Mean Corp Hgb Conc 32.3 g/dL (32-36); Mean Corpuscular Hgb 31.8 pg (27.0-32.0); Mean Corpuscular Volume 98.3 fL (81-99); Mean Platelet Vol. 10.2 fl (6.2-12.0); Monocyte# 0.45 X10^3/uL; Monocyte% 8.3 % (0-10); NRBC Flagged by Analyzer 0 % (0-5); Neutrophil # 2.89 X10^3/uL (2.7-7.7); Neutrophil % 53.5 % (47-70); Platelet Count 171 K/mm3 (150-450); RBC Distribution Width CV 13.8 % (11.6-14.6); RBC Distribution Width SD 50.1 fl (35.1-43.9); Red Blood Count 2.96 M/mm3 (4.2-5.4); White Blood Count 5.4 K/mm3 (4.4-11.0)
[2021-03-20 05:39] LABS: ALB/GLOB Ratio 0.8 RATIO (0.9-2.4); AST(SGOT) 20 U/L (15-37); Alanine Aminotransfer ALT/SGPT 23 U/L (13-56); Alkaline Phosphatase 117 U/L (45-117); Anion Gap 8 (5-15); BUN 67 mg/dL (7-18); BUN/Creat Ratio 44.4 RATIO (10-20); Calcium,Total 7.6 mg/dL (8.5-10.1); Chloride 113 mmol/L (98-107); Creatinine, Serum 1.51 mg/dL (0.55-1.02); EST Glomerular Filtration Rate 35 mL/min (>60); Est Glom Filt Rate - Afr Amer 42 mL/min (>60); Estimated Creatinine Clearance 20.18 ml/min; Globulin 2.6 g/dL (2.2-4.2); Glucose 83 mg/dL (74-106); Potassium 4.5 mmol/L (3.5-5.1); Protein, Total 4.6 g/dL (6.4-8.2); Sodium Level 139 mmol/L (136-145)
--- NOTE | 2021-03-20 06:26 | PN.HOSP_ITS ---
Subjective Subjective Patient with no acute events overnight per self and per nursing report. Patient had improvement in her blood pressures ranging from 90s to 120 systolic over 50s to 60s with no lightheadedness or dizziness. Patient since presentation has had no further episodes of diarrhea or any abdominal cramping, nausea or emesis. Did discuss current status and given unclear etiology discontinuation planned of oral vancomycin as had significant concern for possible C. difficile with severe presentation. Patient denies fevers, chills, nausea, emesis, abdominal pain, chest pain or dyspnea. Objective Data Objective Data Vital Signs: Vital Signs Temp Pulse Resp BP Pulse Ox 97.6 F L 79 12 88/48 L 98 03/20/21 04:20 03/20/21 04:20 03/20/21 04:20 03/20/21 04:20 03/20/21 04:20 Oxygen Delivery Method Room Air Weight: 157 lb 13.616 oz Body Mass Index (BMI) 28.7 Intake & Output: Intake and Output for Last 24 Hours 03/18/21 03/19/21 03/20/21 23:59 23:59 23:59 Intake Total 2132 / 2132 1000 / 1000 Output Total 350 / 350 Balance 1782 / 1782 1000 / 1000 Lab / Micro Data Result Diagrams: 03/20/21 05:08 03/20/21 05:08 Labs: Laboratory Results - last 24 hr 03/19/21 14:30: WBC 7.4, RBC 3.83 L, Hgb 12.0, Hct 37.5, MCV 97.9, MCH 31.3, MCHC 32.0, RDW Std Deviation 49.7 H, RDW Coeff of Danny 13.7, Plt Count 218, MPV 11.1, Immature Gran % (Auto) 0.900, Neut % (Auto) 69.0, Lymph % (Auto) 21.5, [place] % (Auto) 7.0, Eos % (Auto) 0.8, Baso % (Auto) 0.8, Absolute Neuts (auto) 5.1, Absolute Lymphs (auto) 1.59, Nucleated RBC % 0 03/19/21 14:30: Sodium 135 L, Potassium 5.3 H, Chloride 105, Carbon Dioxide 21.0, Anion Gap 9, BUN 78 H, Creatinine 2.22 H, Estim Creat Clear Calc 13.07, Est GFR (MDRD) Af Amer 27 L, Est GFR (MDRD) Non-Af 22 L, BUN/Creatinine Ratio 35.1 H, Glucose 100, Calcium 8.6, Total Bilirubin 0.40, AST 33, ALT 32, Alkaline Phosphatase 136 H, Troponin I High Sens 13.8, Total Protein 6.3 L, Albumin 2.7 L , Globulin 3.6, Albumin/Globulin Ratio 0.8 L 03/19/21 14:30: Phosphorus 4.6, Magnesium 2.3 03/19/21 19:55: Lactic Acid 2.1 H* 03/19/21 21:00: Urine Color Yellow, Urine Clarity Clear, Urine pH 5.0, Ur Specific [place] 1.020, Urine Protein Negative, Urine Glucose (UA) Normal, Urine Ketones Negative, Urine Occult Blood Negative, Urine Nitrite Negative, Urine Bilirubin Negative, Urine Urobilinogen Normal, Ur Leukocyte Esterase Negative, Urine RBC 0 SEEN, Urine WBC 0 SEEN, Ur Squamous Epith Cells 0-5 SEEN, Urine Bacteria 1+, Hyaline Casts 10-25 SEEN, Urine Mucus 0 SEEN 03/20/21 00:15: Lactic Acid 0.9 03/20/21 05:08: WBC 5.4, RBC 2.96 L, Hgb 9.4 L, Hct 29.1 L, MCV 98.3, MCH 31.8, MCHC 32.3, RDW Std Deviation 50.1 H, RDW Coeff of Danny 13.8, Plt Count 171, MPV 10.2, Immature Gran % (Auto) 0.600, Neut % (Auto) 53.5, Lymph % (Auto) 33.0, [place] % (Auto) 8.3, Eos % (Auto) 3.9, Baso % (Auto) 0.7, Absolute Neuts (auto) 2.9, Absolute Lymphs (auto) 1.78, Nucleated RBC % 0 03/20/21 05:08: Sodium 139, Potassium 4.5, Chloride 113 H, Carbon Dioxide 18.0 L , Anion Gap 8, BUN 67 H, Creatinine 1.51 H, Estim Creat Clear Calc 20.18, Est GFR (MDRD) Af Amer 42 L, Est GFR (MDRD) Non-Af 35 L, BUN/Creatinine Ratio 44.4 H , Glucose 83, Calcium 7.6 L, Total Bilirubin 0.30, AST 20, ALT 23, Alkaline Phosphatase 117, Total Protein 4.6 L, Albumin 2.0 L, Globulin 2.6, Albumin/Globulin Ratio 0.8 L Physical Exam Narrative Physical Examination: General: Awake, alert, oriented x 3 and cooperative, mildly hard of hearing, patient seated upright next to the PCU bed, joking, well-appearing, no acute distress. Skin: Normal color, normal turgor, no icterus, no cyanosis except occasional staged ecchymoses. HEENT: AT/NC, EOMI, PERRLA, improved MMM. Lungs: Diminished, greater bases, moderate effort, no evidence of any distress, no rales, ronchi or wheezing. Heart: Regular rate and rhythm; no gallop, rub audible. Abdomen: Soft, NTTP, nondistended, still noted hyperactive bowel sounds. Extremities: No cyanosis, clubbing, or edema. Neurological: Patient awake, alert, oriented as noted, cognitive function appears baseline intact; pupils equally reactive to light and accommodation, cranial nerves II-XII grossly normal, moving all 4 extremities, no focal deficits, strength improving, moderately globally decreased. Psychiatric: Affect appears improved, more interactive, no acute evidence of depressive or anxiety feelings. Assessment & Plan Assessment/Plan (1) Acute hypotension: (2) Acute kidney injury: (3) Diarrhea: QUALIFIERS: Diarrhea type: unspecified type Qualified Code(s): R19.7 - Diarrhea, unspecified PLAN: The patient is an 85 y/o F w/ PMHx: HTN, HLD, Fe Deficiency anemia, RLS who presents to the [facility] ED on 03/19/21 with history of onset of diarrhea over the last 5 days noted to be watery in nature reported also being on antibiotics specifically doxycycline for recent hip infection associated with a recent hip replacement with no recent fevers, chills however not improving with difficulty maintaining appropriate hydration with low blood pressures over the last approximate 2 weeks however more severe over the last 5 days with GI losses prompting health care nurse to refer patient to the ED for evaluation. 1. Profuse Diarrhea, Possible Gastroenteritis, recent Abx Therapy w/ concern for Possible C-difficile colitis: Patient admitted to PCU on monitor given severity of hypotension in the ED, maintain on fall precautions, continued on judicious hydration, no stools since ED initial presentation therefore have been unable to obtain C. difficile, stool culture, initially placed on oral vancomycin given severity of presentation and concern for C. difficile but this is now being discontinued is unclear specific etiology, if onset diarrhea again will obtain at that time and initiate if appropriate. Currently maintained on her oral doxycycline regimen given history as noted #3. PT, OT, CM consultation for discharge planning. 2. Acute kidney injury: Secondary to GI losses with diarrhea as noted. Admission BUN/Cr 78/2.22, prior baseline creatinine noted to be 0.5-0.6. Patient with continued hydration, notably improved with 03/20/2021 BUN/creatinine 67/1.51. We will continue to trend CMP. 3. 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 Feldman, infectious disease, most recent noted culture with staph epidermidis 2+ from 02/25/2020 left hip drainage susceptible to doxycycline with significant resistance patterns in the insensitivities noted. May need to confer with Dr. Feldman given #1 pending onset of recurrent diarrhea is currently no episodes since admission. 4. Hypertension: Holding patient lisinopril and Lasix given TICO but also hypotensive in the ED and has low normal BPs and has for several weeks. Do suspect that we will discharge patient home on no hypertensive therapy. 5. Hyperlipidemia: Not on regimen, defer to outpatient. 6. Chronic anemia, iron deficiency: We will continue patient home iron supplementation, admission hemoglobin 12 however repeat 03/20/2021 9.4, suspect patient likely had been lower and given aggressive hydration may be delusional, continue to trend CBC. 7. Restless leg syndrome: We will continue patient home Mirapex regimen. 8. DVT prophylaxis: SCDs, heparin. 9. CODE status: Patient SANIYA is her son Jaydon and living will is currently in place. DNR-CCA, no intubation status. Charges/Coding Visit Charges Inpatient E&M: 02717 Subs Hosp L2
[2021-03-20] MEDS: Aspirin E.C. 81 MG Tablet PO (08:49)
[2021-03-20] MEDS: Iron Polysaccharide Complex 150 MG CAPSULE PO (08:49)
[2021-03-20] MEDS: Pyridoxine HCl 100 MG Tablet PO (08:49)
[2021-03-20] MEDS: Ascorbic Acid 500 MG Tablet PO (08:49)
[2021-03-20] MEDS: Doxycycline 100 MG CAPSULE PO ×2 (10:49→21:37)
[2021-03-20] MEDS: Heparin Injection (Vial) 5,000 UNIT/ML VIAL 5000 UNIT SC ×2 (10:49→21:37)
--- NOTE | 2021-03-20 11:00 | CASEMGMT ---
KHANH STALLINGS Face to Face with patient for initial transition planning/care coordination assessment. RN HAYLIE introduced self and role at [facility]. Patient lying in bed, alert and oriented. Patient willing to participate in assessment and is able to answer all questions appropriately. Care providers, pharmacy, and demographics verified. Patient wishes to discharge home, with possible HHC if indicated. Patient states she has no further needs or concerns at this time. CM to follow for discharge planning needs that may arise. PCP: Michael Specialists: none Preferred Pharmacy: [facility] Insurance: [facility] Prescription Benefit: yes Living Will/HPOA: yes son Jaydon Lo, HPOA LNOK: son, JERMAINE Living Arrangements: Patient lives with younger son in a single story home with no steps to enter. Patient states she is independent for toileting. Patient states she has aides from [place] that assist with bathing and dressing 3x per week. Transportation: [facility] DME/HHC: patient states she has walker, BSC, and tub bench. Patient states she has previously been to [facility]. Patient is active with [facility] and has aides through [place]. Will monitor for need for HHC pending progress with therapy. Disposition Plan: Patient to discharge home with family support and follow-up plans in place. Claire BARNARD, RN, CM
[2021-03-20] MEDS: 0.9% Normal Saline 1,000 ML 75 ML IV (17:55)
[2021-03-20] MEDS: Pramipexole Di-HCl 0.5 MG Tablet PO (21:37)
[2021-03-20] MEDS: MELATONIN 10 MG TABLET PO (21:37)
[2021-03-21 03:59] VITALS: PULSE 72
[2021-03-21 04:17] VITALS: BP 120/65; PULSE 78; RESP 16; TEMP 36.3; O2SAT 100
[2021-03-21 05:34] LABS: Absolute Lymphocyte Count 2.48 X10^3/uL (0.83-4.51); Absolute Neutrophil Count 2.5 X10^3/uL (2.0-7.7); Basophil# 0.06 X10^3/uL; Eosinophil# 0.26 X10^3/uL; Eosinophils% 4.5 % (0-5); Hematocrit 29.9 % (37-47); Hemoglobin 9.7 g/dL (12.0-15.0); Lymphocyte # 2.48 X10^3/ul (0.83-4.51); Lymphocyte % 42.5 % (19-41); Mean Corp Hgb Conc 32.4 g/dL (32-36); Mean Corpuscular Hgb 31.6 pg (27.0-32.0); Mean Corpuscular Volume 97.4 fL (81-99); Mean Platelet Vol. 10.2 fl (6.2-12.0); Monocyte# 0.51 X10^3/uL; Monocyte% 8.7 % (0-10); NRBC Flagged by Analyzer 0 % (0-5); Neutrophil # 2.49 X10^3/uL (2.7-7.7); Neutrophil % 42.8 % (47-70); Platelet Count 165 K/mm3 (150-450); RBC Distribution Width CV 13.9 % (11.6-14.6); RBC Distribution Width SD 49.4 fl (35.1-43.9); Red Blood Count 3.07 M/mm3 (4.2-5.4); White Blood Count 5.8 K/mm3 (4.4-11.0)
[2021-03-21 05:58] LABS: ALB/GLOB Ratio 0.7 RATIO (0.9-2.4); AST(SGOT) 20 U/L (15-37); Alanine Aminotransfer ALT/SGPT 23 U/L (13-56); Albumin, Serum 2.1 g/dL (3.2-5.0); Alkaline Phosphatase 122 U/L (45-117); Anion Gap 5 (5-15); BUN 42 mg/dL (7-18); BUN/Creat Ratio 40.8 RATIO (10-20); Calcium,Total 7.9 mg/dL (8.5-10.1); Chloride 115 mmol/L (98-107); Creatinine, Serum 1.03 mg/dL (0.55-1.02); EST Glomerular Filtration Rate 54 mL/min (>60); Est Glom Filt Rate - Afr Amer 65 mL/min (>60); Estimated Creatinine Clearance 29.58 ml/min; Globulin 2.9 g/dL (2.2-4.2); Glucose 76 mg/dL (74-106); Potassium 4.3 mmol/L (3.5-5.1); Sodium Level 140 mmol/L (136-145)
--- NOTE | 2021-03-21 06:26 | PN.HOSP_ITS ---
Objective Data Objective Data Vital Signs: Vital Signs Temp Pulse Resp BP Pulse Ox 97.4 F L 78 16 120/65 100 03/21/21 04:17 03/21/21 04:17 03/21/21 04:17 03/21/21 04:17 03/21/21 04:17 Oxygen Delivery Method Room Air Weight: 157 lb 13.616 oz Body Mass Index (BMI) 28.7 Intake & Output: Intake and Output for Last 24 Hours 03/19/21 03/20/21 03/21/21 23:59 23:59 23:59 Intake Total 2132 / 2132 3758.33 / 3908.33 150 / 150 Output Total 350 / 350 850 / 850 Balance 1782 / 1782 2908.33 / 3058.33 150 / 150 Lab / Micro Data Result Diagrams: 03/21/21 05:26 03/21/21 05:26 Labs: Laboratory Results - last 24 hr 03/21/21 05:26: WBC 5.8, RBC 3.07 L, Hgb 9.7 L, Hct 29.9 L, MCV 97.4, MCH 31.6, MCHC 32.4, RDW Std Deviation 49.4 H, RDW Coeff of Danny 13.9, Plt Count 165, MPV 10.2, Immature Gran % (Auto) 0.500, Neut % (Auto) 42.8 L, Lymph % (Auto) 42.5 H, [place] % (Auto) 8.7, Eos % (Auto) 4.5, Baso % (Auto) 1.0, Absolute Neuts (auto) 2.5, Absolute Lymphs (auto) 2.48, Nucleated RBC % 0 03/21/21 05:26: Sodium 140, Potassium 4.3, Chloride 115 H, Carbon Dioxide 20.0 L , Anion Gap 5, BUN 42 H, Creatinine 1.03 H, Estim Creat Clear Calc 29.58, Est GFR (MDRD) Af Amer 65, Est GFR (MDRD) Non-Af 54 L, BUN/Creatinine Ratio 40.8 H, Glucose 76, Calcium 7.9 L, Total Bilirubin 0.40, AST 20, ALT 23, Alkaline Phos phatase 122 H, Total Protein 5.0 L, Albumin 2.1 L, Globulin 2.9, Albumin/Globulin Ratio 0.7 L Micro: Microbiology 03/21/21 04:35 Stool Stool Lactoferrin - Final
[2021-03-21 07:00] VITALS: PULSE 78
[2021-03-21] MEDS: Aspirin E.C. 81 MG Tablet PO (08:56)
[2021-03-21] MEDS: Ascorbic Acid 500 MG Tablet PO (08:56)
[2021-03-21] MEDS: Pyridoxine HCl 100 MG Tablet PO (08:56)
[2021-03-21] MEDS: Doxycycline 100 MG CAPSULE PO (08:56)
[2021-03-21] MEDS: Iron Polysaccharide Complex 150 MG CAPSULE PO (08:57)
[2021-03-21] MEDS: Heparin Injection (Vial) 5,000 UNIT/ML VIAL 5000 UNIT SC (08:57)
[2021-03-21 10:11] VITALS: BP 92/58; PULSE 75; RESP 16; TEMP 36.2; O2SAT 98
--- NOTE | 2021-03-21 10:17 | DS.PCM_ITS ---
Providers Date of Admission: 03/19/21 Primary Care Physician: Dr. Jaye Rodriguez MD Reason For Visit: GASTROENTERITIS, TICO Diagnosis Discharge Diagnosis (1) Acute hypotension: Status: Acute Code(s): I95.9 - Hypotension, unspecified (2) Acute kidney injury: Status: Acute Code(s): N17.9 - Acute kidney failure, unspecified (3) Diarrhea: Status: Acute Code(s): R19.7 - Diarrhea, unspecified Qualifiers: Diarrhea type: unspecified type Qualified Code(s): R19.7 - Diarrhea, unspecified Medications at Discharge Home Medications cholecalciferol (vitamin D3) 1,000 unit PO DAILY 02/10/20 melatonin 10 mg PO QHS tab 02/27/20 aspirin 81 mg PO DAILY@0800 03/17/20 polysaccharide iron complex 150 mg PO DAILYCM 03/17/20 pramipexole 0.5 mg PO QHS 03/17/20 pyridoxine (vitamin B6) 100 mg PO DAILY@0800 03/17/20 acidophilus-pectin, citrus 1 tab PO BID tab 04/18/20 ascorbic acid (vitamin C) 500 mg PO DAILY@0800 tab 04/18/20 Doxycycline 100 mg PO BID 11/06/20 Vitamin K2 PO DAILY 11/06/20 calcium carbonate-vitamin D3 1 each PO 12/17/20 Hospital Course Operations None Procedures EKG Summary of Care Provided Minutes Spent on Discharge: 35 Hospital Course: Discharge Diagnoses: 1. Profuse Diarrhea, Possible Gastroenteritis, Possibly Viral (negative enteric, negative c-diff stool studies), Resolved 2. Acute kidney injury, Secondary to GI losses with diarrhea as noted 3. 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 History of Hypertension, now low normal blood pressures for several weeks to months 5. Hyperlipidemia 6. Chronic anemia, iron deficiency 7. Restless leg syndrome 8. CODE status: Patient SANIYA is her son Jaydon. DNR-CCA, no intubation status. Discharge Summary: The patient is an 85 y/o F w/ PMHx: HTN, HLD, Fe Deficiency anemia, RLS who presented to the [facility] ED on 03/19/21 with history of onset of diarrhea over the last 5 days noted to be watery in nature reported also being on antibiotics specifically doxycycline for recent hip infection associated with a recent hip replacement with no recent fevers, chills however not improving with difficulty maintaining appropriate hydration with low blood pressures over the last approximate 2 weeks however more severe over the last 5 days with GI losses prompting health care nurse to refer patient to the ED for evaluation. Patient admitted to PCU on monitor given severity of hypotension in the ED, maintained on fall precautions, continued on judicious hydration, stool normalized however was still sent for C. difficile and enteric pathogen, both negative, initially had been placed on oral vancomycin given severity of initial presentation but this was discontinued following. Patient's renal function improved and blood pressures stabilized with baseline systolic in the 90s which she said has been ongoing for several weeks to months. All of the patient's hypertensive regimens were discontinued at this point with recommendation for close PCP follow-up and resumption if any further concerns about elevated blood pressure. Did discuss that if patient had any recurrent diarrhea given negative stool culture and negative C. difficile antidiarrheal medicine could be initiated. PT and OT assessments as well as case management consultations performed with discharge to home given stable improvement with home therapies and home health in place. Patient did improve significantly faster than clinically expected and acute kidney injury did also improve more quickly and readily expected. Discharge Time: > 35 Minutes DAY OF DISCHARGE PROGRESS NOTE: Subjective: Patient without acute event overnight per self and nursing report. Patient with normalizing stools negative for C. difficile and enteric pathogens. Patient denies fever, chills, nausea, emesis, abdominal pain, chest pain or dyspnea. Patient agreeable to discharge to home with home therapies. Patient will be discharged with follow-up with primary care physician within 3-5 days for reevaluation. Objective: T 97.7, heart rate 76, BP 123/61, respiratory rate 18, 98% room air. Physical Examination: General: Awake, alert, oriented x 3 and cooperative, mildly hard of hearing, seated upright in the PCU bedside chair, no acute distress. Skin: Normal color, normal turgor, no icterus, no cyanosis except occasional staged ecchymoses. HEENT: AT/NC, EOMI, PERRLA, MMM. Lungs: Diminished, greater bases, moderate effort, no evidence of any distress, no rales, ronchi or wheezing. Heart: Regular rate and rhythm; no gallop, rub audible. Abdomen: Soft, NTTP, nondistended, normalized bowel sounds. Extremities: No cyanosis, clubbing, or edema. Neurological: Patient awake, alert, oriented as noted, cognitive function appears baseline intact; pupils equally reactive to light and accommodation, cranial nerves II-XII grossly normal, moving all 4 extremities, no focal deficits, strength improving, mildly to moderately global decrease. Psychiatric: Affect appears normal, no acute evidence of depressive or anxiety feelings. Assessment and Plan: Please see hospital summary above. Weight / BMI Weight Weight: 161 lb 6.054 oz Body Mass Index (BMI) 28.7 ABG / Lab / Microbiology Data Result Diagrams: 03/21/21 05:26 03/21/21 05:26 Laboratory: Laboratory Results - last 24 hr 03/21/21 05:26: WBC 5.8, RBC 3.07 L, Hgb 9.7 L, Hct 29.9 L, MCV 97.4, MCH 31.6, MCHC 32.4, RDW Std Deviation 49.4 H, RDW Coeff of Danny 13.9, Plt Count 165, MPV 10.2, Immature Gran % (Auto) 0.500, Neut % (Auto) 42.8 L, Lymph % (Auto) 42.5 H, Yates % (Auto) 8.7, Eos % (Auto) 4.5, Baso % (Auto) 1.0, Absolute Neuts (auto) 2.5, Absolute Lymphs (auto) 2.48, Nucleated RBC % 0 03/21/21 05:26: Sodium 140, Potassium 4.3, Chloride 115 H, Carbon Dioxide 20.0 L , Anion Gap 5, BUN 42 H, Creatinine 1.03 H, Estim Creat Clear Calc 29.58, Est GFR (MDRD) Af Amer 65, Est GFR (MDRD) Non-Af 54 L, BUN/Creatinine Ratio 40.8 H, Glucose 76, Calcium 7.9 L, Total Bilirubin 0.40, AST 20, ALT 23, Alkaline Phosphatase 122 H, Total Protein 5.0 L, Albumin 2.1 L, Globulin 2.9, Albumin/Globulin Ratio 0.7 L Microbiology: Microbiology 03/21/21 04:35 Stool Stool Lactoferrin - Final 03/21/21 04:35 Stool Enteric Bacteriology - Final 03/21/21 04:35 Stool C. difficile DNA Amplification - Final D/C Instructions Discharge Diet: Low fat / Low cholesterol Call your doctor if you observe: Fever of 101 or Higher, Inability to urinate, Shortness of breath, Dizziness, Fainting spells, Chest pain, Increased palpitations (irregular heartbeat), Uncontrolled pain and - (Recurrent profuse diarrhea or significantly lowered blood pressures.) Meaningful Use Info Meaningful Use Diagnoses (Choose all that apply): None applicable Discharge Plan Admission Admit Date/Time: 03/19/21 16:00 Primary Reason for Your Visit: Gastroenteritis, TICO, resolved Attending Provider: Keily Barth Primary Care Provider: Jaye Rodriguez Instructions Patient Instructions: Acute Kidney Failure Dc, ED Diarrhea, Unknown Cause, ED Low Blood Pressure, All Causes Additional Instructions / Restrictions: STOP ALL Blood pressure medications given your several week history of lower normal blood pressures and recently acutely low blood pressures upon initial ED presentation with diarrhea, since resolved. If your blood pressure are again elevated you may require a restart of some of these medications. Please have repeat basic metabolic panel with your primary care at follow-up to assure continued renal function improvement toward your baseline. IF you have any recurrent profuse diarrhea please contact your primary care office. Your stool studies demonstrate no acute bacterial infections therefore it would be appropriate to take antidiarrheal medications if needed. Discharge Orders/Prescriptions Prescriptions: Continued cholecalciferol (vitamin D3) 1,000 UNIT tablet 1,000 unit PO DAILY RF: 0 melatonin 10 MG tablet 10 mg PO QHS RF: 0 aspirin 81 MG tablet 81 mg PO DAILY@0800 RF: 0 polysaccharide iron complex 150 MG capsule 150 mg PO DAILYCM RF: 0 pramipexole 0.5 MG tablet 0.5 mg PO QHS RF: 0 pyridoxine (vitamin B6) 100 MG tablet 100 mg PO DAILY@0800 RF: 0 ascorbic acid (vitamin C) 500 MG tablet 500 mg PO DAILY@0800 RF: 0 acidophilus-pectin, citrus 1 TABLET tablet 1 tab PO BID RF: 0 Vitamin K2 capsule PO DAILY RF: 0 Doxycycline 100 MG tablet 100 mg PO BID RF: 0 calcium carbonate-vitamin D3 1 EACH tablet 1 each PO RF: 0 Discontinued lisinopril 20 MG tablet 20 mg PO DAILY RF: 0 polyethylene glycol 3350 17 GM packet 17 gm PO DAILY RF: 0 sennosides-docusate sodium 1 TABLET tablet 1 tab PO BID RF: 0 Furosemide tablet 20 mg PO QODAY RF: 0 Referrals / Follow Up: Jaye Rodriguez MD [Primary Care Provider] - (Please follow-up within 3-5 days to review admission. Please continue off your hypertensive medications given your several week history of lower blood pressures.) Mj Feldman MD [STAFF PHYSICIAN] - (Please continue to follow with Infectious disease for your chronic hip infection.) Disposition Disposition (needs filled in before D/C Order can be placed): Home Health Service Charges/Coding Visit Charges Inpatient E&M: 93595 Disch Hosp
--- NOTE | 2021-03-21 10:22 | PHA.DC.MR ---
Pharmacy Service has performed discharge medication reconciliation for this patient. No new medications at time of discharge. Medications reviewed are from previously reported home medications. Home Medications cholecalciferol (vitamin D3) 1,000 unit PO DAILY 02/10/20 melatonin 10 mg PO QHS tab 02/27/20 aspirin 81 mg PO DAILY@0800 03/17/20 polysaccharide iron complex 150 mg PO DAILYCM 03/17/20 pramipexole 0.5 mg PO QHS 03/17/20 pyridoxine (vitamin B6) 100 mg PO DAILY@0800 03/17/20 acidophilus-pectin, citrus 1 tab PO BID tab 04/18/20 ascorbic acid (vitamin C) 500 mg PO DAILY@0800 tab 04/18/20 Doxycycline 100 mg PO BID 11/06/20 Vitamin K2 PO DAILY 11/06/20 calcium carbonate-vitamin D3 1 each PO 12/17/20 The patient's discharge medication list was reviewed for discrepancies and discrepancies were resolved.
--- NOTE | 2021-03-21 10:29 | CASEMGMT ---
KHANH STALLINGS in to discuss discharge planning with patient. KHANH STALLINGS discussed HHC for SN and therapy. Patient states she would like to discuss with son that she lives with as she already has aides and [facility]N coming into the home and not sure if he will want more people coming in. KHANH STALLINGS encouraged patient to discuss with son if he would be okay with HHC. Patient was provided a list of HHC providers including quality and resource use data and consistent with the patient?s preferred geographic region, medical needs, and insurance network. CM will follow-up with patient and continue to plan for a safe discharge.
[2021-03-21 11:45] VITALS: O2SAT 98
--- NOTE | 2021-03-21 12:34 | CASEMGMT ---
Addendum entered by Claire Bajwa 03/21/21 15:05: Pt updated on all, voices understanding. Fanny CASSIDY CM Addendum entered by Claire Bajwa 03/21/21 14:49: Call from [facility] and they state they can accept pt at this time. Pt ready for discharge and HHC is aware. Fanny CASSIDY CM Addendum entered by Claire Bajwa 03/21/21 14:15: Message left with Joo at [facility] to notify of pt discharge. Fanny CASSIDY CM Addendum entered by Claire Bajwa 03/21/21 13:47: Call to [facility] to check on referral and Jayshree states she will discuss with intake and call this RN CM back. CM to follow. Fanny CASSIDY CM Original Note: This RN CM to room to see if pt decided on HHC at discharge. Pt states she would this RN CM to call her son, Jaydon Lo, in regards to HHC decision. Call to Jaydon and he is updated on HHC process and therapy recommendations. Jaydon states he would like to speak with his who is an RN and then call this RN CM back. CM to follow. Fanny CASSIDY CM
[2021-03-21 17:40] VITALS: BP 123/61; PULSE 76; RESP 18; TEMP 36.5; O2SAT 98
== END 2021-03-21 17:36 | disposition home health service (06) | DRG 683 ==
LOC: ED 15:55 → PCU 16:05
PROVIDERS: Admitting Provider Family Medicine; Emergency Provider Emergency Medicine; PCP Internal Medicine; Visit Provider Family Medicine
DX: N17.9 Acute kidney failure, unspecified (principal); T84.52XA Infection and inflammatory reaction due to internal left hip prosthesis, initial encounter; A08.4 Viral intestinal infection, unspecified; I95.9 Hypotension, unspecified; Z96.642 Presence of left artificial hip joint; I10 Essential (primary) hypertension; E78.5 Hyperlipidemia, unspecified; D50.9 Iron deficiency anemia, unspecified; G25.81 Restless legs syndrome; Z79.2 Long term (current) use of antibiotics; Z79.899 Other long term (current) drug therapy; F17.210 Nicotine dependence, cigarettes, uncomplicated; E86.0 Dehydration; Z66 Do not resuscitate; W18.30XD Fall on same level, unspecified, subsequent encounter
CPT/HCPCS: 36415; 80053; 81001; 83605; 83630; 83735; 84100; 84484; 85025; 87493; 87506; 93005; 97162; 97166; 97802; 99251; 99284; J7030; J7040; A4216; G0463

== ENCOUNTER 2021-04-13 14:39 | Inpatient (IN) | payer MEDICARE, SELFPAY ==
[2021-03-19 17:20] VITALS: BMI 28.7
[2021-04-13 14:41] VITALS: BP 98/55; PULSE 74; RESP 16; TEMP 36.4; O2SAT 100
[2021-04-13 14:45] VITALS: BP 98/55
--- NOTE | 2021-04-13 15:30 | EDS_ITS ---
HPI History of Present Illness Chief Complaint: Cellulitis Informant: patient and family Onset/Context/Timing Onset: Days Context: Gradual Onset Current Severity: Mild Maximum Severity: Mild Narrative Narrative: 85-year-old female history of hypertension. Presents today with bilateral lower extremity swelling and redness. She was admitted to the hospital mid March secondary to dehydration and acute kidney injury. 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 Recently took a Lasix which helped her diurese and lose about 4 pounds of water weight. Typically her legs are not significantly swollen. She denies any fever or chills. She denies any nausea, vomiting or diarrhea. She is not diabetic. Prior similar symptoms: Yes Recent Illness/Hospitalization: Yes [facility] Medical History Acute hypotension Acute kidney injury Diarrhea Hypertension Osteoarthritis Prosthetic joint infection of left hip Restless leg syndrome Smoker Tobacco abuse Home Medications cholecalciferol (vitamin D3) 1,000 unit PO DAILY 02/10/20 [History Last Taken Unknown] melatonin 10 mg PO QHS tab 02/27/20 [Rx Last Taken Unknown] aspirin 81 mg PO DAILY@0800 03/17/20 [History Last Taken Unknown] polysaccharide iron complex 150 mg PO DAILYCM 03/17/20 [History Last Taken Unknown] pramipexole 0.5 mg PO QHS 03/17/20 [History Last Taken Unknown] pyridoxine (vitamin B6) 100 mg PO DAILY@0800 03/17/20 [History Last Taken Unknown] acidophilus-pectin, citrus 1 tab PO BID tab 04/18/20 [Rx Last Taken Unknown] ascorbic acid (vitamin C) 500 mg PO DAILY@0800 tab 04/18/20 [Rx Last Taken Unknown] Doxycycline 100 mg PO BID 11/06/20 [History Last Taken 03/18/21 20:00] Vitamin K2 PO DAILY 11/06/20 [History Last Taken Unknown] calcium carbonate-vitamin D3 1 each PO 12/17/20 [History Last Taken Unknown] Allergy/AdvReac Type Severity Reaction Status Date / Time hydroxychloroquine Allergy NEEDS Verified 04/13/21 14:40 [From Plaquenil] FOLLOW-UP Family History Mother Dementia Father Heart disease Hypertension CVA (cerebral vascular accident) CAD (coronary artery disease) Myocardial infarction Surgical History History of hip replacement History of hysterectomy S/P carpal tunnel release S/P parathyroidectomy S/P tonsillectomy Status post total knee replacement, left Social History adopted: No household members: family and children housing: house Smoking Status: Current every day smoker tobacco type: cigarettes alcohol intake: never substance use type: does not use ROS ROS ED ROS Narrative Patient denies. Review of Systems ROS Unobtainable: Denies due to encephalopathy Constitutional Constitutional ED: Denies chills or fever(s) Eyes Eyes: Denies change in vision Cardiovascular Cardiovascular: Denies chest pain or palpitations Respiratory/Chest Respiratory/Chest: Denies cough or dyspnea Gastrointestinal Gastrointestinal: Denies abdominal pain, constipation, diarrhea, nausea or vomiting Genitourinary Genitourinary ED: Denies dysuria Musculoskeletal Musculoskeletal: Denies myalgias Integumentary Reports rash Neurologic Neurologic: Denies headache(s) Psychiatric Psychiatric: Denies depression Endocrine Endocrinology: Denies polyuria Allergic/Immunologic Allergic/Immunologic ED: Denies urticaria EXAM Physical Exam Narrative Exam Narrative: Only female no acute distress. Initial blood pressure 98/55. She does not look septic or toxic. Distal H EENT exam unremarkable. Neck nontender no lymphadenopathy. Lungs clear to auscultation bilaterally. Heart regular rhythm no murmur. Abdomen soft nontender normal bowel sounds no peritoneal signs. Extremities moves all 4. Normal range of motion, normal motor strength. Both lower extremities have 1+ pitting edema with redness over the anterior shins of both lower legs up to the midportion. Also involving the feet. Dorsi plantar flexion intact. This could be consistent with cellulitis. Neurologically she is awake alert with no focal motor deficits Const Vital Signs: 04/13/21 14:41 04/13/21 14:45 04/13/21 14:53 Temperature 97.5 F L Temperature Source Temporal Pulse Rate 74 Respiratory Rate 16 Respiratory Effort Normal Respiratory Pattern Normal Blood Pressure 98/55 L 98/55 L Blood Pressure Mean 69 69 Pulse Ox 100 Oxygen Delivery Method Room Air 04/13/21 16:48 Temperature Temperature Source Pulse Rate 73 Respiratory Rate 16 Respiratory Effort Respiratory Pattern Blood Pressure Blood Pressure Mean Pulse Ox Oxygen Delivery Method Positive well nourished and well developed; Negative for obese, cachectic, contractures or unkempt General Appearance ED: well developed and NAD; Negative for unkempt, cachectic or contractures Nutritional Appearance: Negative for cachectic or obese HEENT Reports moist mucous membranes Negative for trauma or tenderness Eyes PERRL and EOMs intact bilaterally Neck no lymphadenopathy, supple and no JVD General: Negative for tenderness Chest Wall inspection of chest normal and palpation of chest normal Resp normal respiratory effort and clear to auscultation bilaterally Cardio regular rate, regular rhythm, S1 normal heart sound, S2 normal heart sound and no murmurs GI normal to inspection, nondistended, normoactive bowel sounds, non-tender and non-distended Palpation: soft Back/Spine no CVA tenderness General Back: Negative for CVA tenderness Cervical Spine: Negative for cervical spine tenderness Thoracic Spine / Upper Back: Negative for thoracic spinal tenderness Lumbar Spine / Lower Back: Negative for lumbar spinal tenderness Extremity Extremity Narrative: Bilateral lower extremity redness 1+ pitting edema. Dorsi plantarflex. No inguinal lymphadenopathy. General Extremety ED: Yes edema and tenderness General Extremity: edema Neuro oriented x3, CN's II-XII intact bilaterally and No no sensory deficits noted Sensorium / Orientation: alert; Negative for orientation impaired, lethargic or stuporous Motor Exam: strength 5/5 throughout Psych mental status grossly normal Appearance: Negative for unkempt Attitude: No agitated Mood & Affect: Negative for depressed, anxious or tearful Skin Skin Narrative: Cellulitis both lower extremities. Open wound. MDM MDM MDM Narrative Medical decision making narrative: Elderly female with lower extremity wounds and edema. It appears that she has developed lower extremity cellulitis. Labs being obtained. Repeat exam at 5:15 PM patient is doing well. Exam the lower extremities is unchanged. I went over the labs with her and her family member. She will be admitted. MRI spoke to the hospitalist. She will be started on IV Unasyn. Lab Data Lab results narrative: CBC shows white count 8.9. Hemoglobin 11. Chemistries unremarkable normal gap. Normal creatinine. Glucose of 88. Labs: Laboratory Results - last 24 hr 04/13/21 04/13/21 15:20 16:09 WBC 8.9 RBC 3.58 L Hgb 11.1 L Hct 32.7 L MCV 91.3 MCH 31.0 MCHC 33.9 RDW Std Deviation 46.0 H RDW Coeff of Danny 13.7 Plt Count 198 MPV 10.5 Immature Gran % (Auto) 0.900 Neut % (Auto) 73.7 H Lymph % (Auto) 16.8 L Bee % (Auto) 8.0 Eos % (Auto) 0.3 Baso % (Auto) 0.3 Absolute Neuts (auto) 6.5 Absolute Lymphs (auto) 1.49 Nucleated RBC % 0 Sodium 135 L Potassium 3.2 L Chloride 102 Carbon Dioxide 25.0 Anion Gap 8 BUN 26 H Creatinine 0.97 Estim Creat Clear Calc 31.41 Est GFR (MDRD) Af Amer 70 Est GFR (MDRD) Non-Af 58 L BUN/Creatinine Ratio 26.8 H Glucose 88 Calcium 8.2 L Discharge Plan Triage Chief Complaint: Cellulitis ED Provider: Parker Johnson Dx/Rx/DC Orders Clinical Impression: Cellulitis Prescriptions: No Action cholecalciferol (vitamin D3) 1,000 UNIT tablet 1,000 unit PO DAILY RF: 0 melatonin 10 MG tablet 10 mg PO QHS RF: 0 aspirin 81 MG tablet 81 mg PO DAILY@0800 RF: 0 polysaccharide iron complex 150 MG capsule 150 mg PO DAILYCM RF: 0 pramipexole 0.5 MG tablet 0.5 mg PO QHS RF: 0 pyridoxine (vitamin B6) 100 MG tablet 100 mg PO DAILY@0800 RF: 0 ascorbic acid (vitamin C) 500 MG tablet 500 mg PO DAILY@0800 RF: 0 acidophilus-pectin, citrus 1 TABLET tablet 1 tab PO BID RF: 0 Vitamin K2 capsule PO DAILY RF: 0 Doxycycline 100 MG tablet 100 mg PO BID RF: 0 calcium carbonate-vitamin D3 1 EACH tablet 1 each PO RF: 0 Primary Care Provider: Jaye Rodriguez Referrals: Jaye Rodriguez MD [Primary Care Provider] - Disposition Disposition: Acute Care Hospital [facility]
--- NOTE | 2021-04-13 15:37 | NURSING ---
PER LAB, NEED ANOTHER GREENN TOP
[2021-04-13 15:45] LABS: Absolute Lymphocyte Count 1.49 X10^3/uL (0.83-4.51); Absolute Neutrophil Count 6.5 X10^3/uL (2.0-7.7); Basophil# 0.03 X10^3/uL; Basophil% 0.3 % (0-1); Eosinophil# 0.03 X10^3/uL; Eosinophils% 0.3 % (0-5); Hematocrit 32.7 % (37-47); Hemoglobin 11.1 g/dL (12.0-15.0); Lymphocyte # 1.49 X10^3/ul (0.83-4.51); Lymphocyte % 16.8 % (19-41); Mean Corp Hgb Conc 33.9 g/dL (32-36); Mean Corpuscular Volume 91.3 fL (81-99); Mean Platelet Vol. 10.5 fl (6.2-12.0); Monocyte# 0.71 X10^3/uL; NRBC Flagged by Analyzer 0 % (0-5); Neutrophil # 6.51 X10^3/uL (2.7-7.7); Neutrophil % 73.7 % (47-70); Platelet Count 198 K/mm3 (150-450); RBC Distribution Width CV 13.7 % (11.6-14.6); Red Blood Count 3.58 M/mm3 (4.2-5.4); White Blood Count 8.9 K/mm3 (4.4-11.0)
[2021-04-13 16:48] VITALS: PULSE 73; RESP 16
[2021-04-13 16:54] LABS: Anion Gap 8 (5-15); BUN 26 mg/dL (7-18); BUN/Creat Ratio 26.8 RATIO (10-20); Calcium,Total 8.2 mg/dL (8.5-10.1); Chloride 102 mmol/L (98-107); Creatinine, Serum 0.97 mg/dL (0.55-1.02); EST Glomerular Filtration Rate 58 mL/min (>60); Est Glom Filt Rate - Afr Amer 70 mL/min (>60); Estimated Creatinine Clearance 31.41 ml/min; Glucose 88 mg/dL (74-106); Potassium 3.2 mmol/L (3.5-5.1); Sodium Level 135 mmol/L (136-145)
[2021-04-13 18:00] VITALS: BP 125/68; PULSE 70; RESP 17; TEMP 36.5; O2SAT 99
--- NOTE | 2021-04-13 18:00 | VDLE_ITS ---
Reason For Study: SWELLING RIGHT LEFT GSV is normal. GSV is normal. CFV is compressible, spontaneous, phasic, CFV is compressible, spontaneous, phasic, competent and demonstrates normal competent, and demonstrates normal augmentation. augmentation. FV is compressible, spontaneous, phasic, FV is compressible, spontaneous, phasic, competent and demonstrates normal competent and demonstrates normal augmentation. augmentation. POP V is compressible, spontaneous, phasic, POP V is compressible, spontaneous, phasic, competent and demonstrates normal competent and demonstrates normal augmentation. augmentation. T/P Trunk is compressible. T/P Trunk is compressible. PTV is compressible. PTV is compressible. RT PerV is compressible. LT PerV is compressible. Procedure Exam performed portable in patient room. A preliminary report was called and/or faxed to [facility]. VL/Venous Duplex US - Giuseppe Extrem Interpretation Summary Deep veins of the lower extremities are bilaterally patent and compressible seg mentally. There is no evidence of deep vein thrombosis on either side. Valvular competence appears in tact within the proximal deep venous systems bilaterally. The great saphenous veins appear bila terally patent and compressible segmentally. Ordering Physician: Fox Holland Referring Physician: CHADD ANTUNEZ Performed By: Lianet Jimenez, RDCS, RVT
--- NOTE | 2021-04-13 18:05 | ECHOD_ITS ---
Reason For Study: RV Failure Procedure This was a 2D Doppler, Color Flow transthoracic echocardiogram. Exam performed portable in patient room. Left Ventricle Normal LV size. The estimated ejection fraction is 60 %. Unable to assess diastolic dysfunction. No regional wall motion abnormalities noted. Right Ventricle Normal RV size. Normal systolic function. Atria Normal left atrium. Normal right atrium. No doppler evidence for ASD. Mitral Valve There is moderate mitral annular calcification. There is no mitral valve stenosis. Trivial mitral valve insufficiency. Tricuspid Valve There is no tricuspid stenosis. Mild tricuspid valve insufficiency. Pulmonary artery systolic pressure is 30 mmHg. Aortic Valve Mild diffuse aortic valve thickening. There is no aortic stenosis. Trivial aortic valve insufficiency. Pulmonic Valve There is no pulmonic valvular stenosis. Trivial pulmonic valve insufficiency. Great Vessels Normal aortic root. Pericardium/Pleural No pericardial effusion. MMode/2D Measurements & Calculations LVIDd: 3.4 cm IVSd: 1.4 cm LA dimension: 3.2 cm LVIDs: 2.4 cm LVPWd: 0.96 cm RVDd: 3.3 cm FS: 29.6 % LAV(MOD-bp): 36.8 ml LA A4 area: 15.0 cm2 RA A4 area: 9.4 cm2 LAV(MOD-bp) Indexed: 21.8 ml/m2 LAV(MOD-sp2): 35.1 ml LAV(MOD-sp4): 35.3 ml Time Measurements MV dec time: 0.35 sec Doppler Measurements & Calculations MV E max samuel: 108.3 cm/sec Lat Peak E' Samuel: 6.3 cm/sec Med Peak E' Samuel: 9.5 cm/sec MV A max samuel: 167.9 cm/sec E/E' lat: 17.1 E/E' med: 11.4 MV E/A: 0.64 MV V2 max: 191.6 cm/sec MV P1/2t max samuel: 123.3 cm/sec Ao V2 max: 172.4 cm/sec MV max P.7 mmHg MV P1/2t: 84.7 msec Ao max P.9 mmHg MV V2 mean: 93.3 cm/sec MV dec slope: 426.2 cm/sec2 MV mean P.2 mmHg MVA(P1/2t): 2.6 cm2 MV V2 VTI: 47.3 cm AI max samuel: 296.6 cm/sec LV V1 max: 115.2 cm/sec PA V2 max: 102.1 cm/sec AI max P.2 mmHg LV V1 max P.3 mmHg AI dec slope: 99.8 cm/sec2 AI P1/2t: 870.6 msec PI dec slope: 196.3 cm/sec2 TR max samuel: 247.9 cm/sec TR max P.6 mmHg ECHO/Echo Complete Interpretation Summary The estimated ejection fraction is 60 %. Unable to assess diastolic dysfunction. Trivial mitral valve insufficiency. Mild diffuse aortic valve thickening. Trivial aortic valve insufficiency. Ordering Physician: Fox Holland Referring Physician: Jaye Rodriguez M.D. Performed By: Trevor Pantoja RCS
[2021-04-13 18:16] VITALS: BP 125/68; PULSE 70; RESP 17; TEMP 36.5; O2SAT 99
--- NOTE | 2021-04-13 18:16 | HP.PCM_ITS ---
HPI - General HPI Narrative MCKINLEY EMLO, is a 85 F who was admitted here in the hospital 3 weeks ago for hypotension caused by an acute diarrheal illness as well as acute kidney injury. At the time she was rehydrated and volume repleted and safely discharged home. Presents now with increasing lower extremity swelling involving both lower extremities. Patient and family became concerned when she developed redness as well as blotchy red patches in the right foot. She denies any fever or chills or malaise. She categorically states that swelling and redness without any pain. She denies any chest pain, shortness of breath, exertional dyspnea [very limited activity though to due to her diffuse and generalized osteoarthritis], paroxysmal nocturnal dyspnea or orthopnea. [facility] Medical History Acute hypotension Acute kidney injury Diarrhea Hypertension Osteoarthritis Prosthetic joint infection of left hip Restless leg syndrome Smoker Tobacco abuse Home Medications cholecalciferol (vitamin D3) 1,000 unit PO DAILY 02/10/20 [History Last Taken Unknown] melatonin 10 mg PO QHS tab 02/27/20 [Rx Last Taken Unknown] aspirin 81 mg PO DAILY@0800 03/17/20 [History Last Taken Unknown] polysaccharide iron complex 150 mg PO DAILYCM 03/17/20 [History Last Taken Unknown] pramipexole 0.5 mg PO QHS 03/17/20 [History Last Taken Unknown] pyridoxine (vitamin B6) 100 mg PO DAILY@0800 03/17/20 [History Last Taken Unknown] acidophilus-pectin, citrus 1 tab PO BID tab 04/18/20 [Rx Last Taken Unknown] ascorbic acid (vitamin C) 500 mg PO DAILY@0800 tab 04/18/20 [Rx Last Taken Unknown] Doxycycline 100 mg PO BID 11/06/20 [History Last Taken 03/18/21 20:00] Vitamin K2 PO DAILY 11/06/20 [History Last Taken Unknown] calcium carbonate-vitamin D3 1 each PO 12/17/20 [History Last Taken Unknown] Allergy/AdvReac Type Severity Reaction Status Date / Time hydroxychloroquine Allergy NEEDS Verified 04/13/21 14:40 [From Plaquenil] FOLLOW-UP Family History Mother Dementia Father Heart disease Hypertension CVA (cerebral vascular accident) CAD (coronary artery disease) Myocardial infarction Surgical History History of hip replacement History of hysterectomy S/P carpal tunnel release S/P parathyroidectomy S/P tonsillectomy Status post total knee replacement, left Social History adopted: No household members: family and children housing: house Smoking Status: Current every day smoker tobacco type: cigarettes alcohol intake: never substance use type: does not use ROS ROS Narrative Denies any chest pain or shortness of breath. No abdominal pain nausea vomiting. All other systems reviewed and essentially negative. Vital Signs Vital Signs Vital Signs: 04/13/21 14:41 04/13/21 14:45 04/13/21 14:53 Temperature 36.4 C L Temperature Source Temporal Pulse Rate 74 Respiratory Rate 16 Respiratory Effort Normal Respiratory Pattern Normal Blood Pressure 98/55 L 98/55 L Blood Pressure Mean 69 69 Pulse Ox 100 Oxygen Delivery Method Room Air 04/13/21 16:48 04/13/21 18:00 Temperature 36.5 C L Temperature Source Temporal Pulse Rate 73 70 Respiratory Rate 16 17 Respiratory Effort Respiratory Pattern Blood Pressure 125/68 H Blood Pressure Mean 87 Pulse Ox 99 Oxygen Delivery Method Room Air Weight Weight: 72.121 kg Body Mass Index (BMI) 30.0 Physical Exam Narrative General. Elderly woman, not acutely ill-appearing, not in any overt distress, appears quite comfortable, very pleasant and very sweet. HEENT. Oral mucosa is moist, pink conjunctivae and oral mucosae. Neck. Neck is supple. There is no jugular venous distention. Heart. First and second heart sounds are heard. Patient has a right ventricular S4 as well as a tricuspid regurgitation murmur grade 2-3/6 Lungs. Largely clear to auscultation. Questionable fine crackles in the bases. Abdomen. Obese. Nontender no organomegaly no palpable masses. Extremities. Bilateral lower extremity edema 3+ extending from the feet all the way to the upper thighs. Edema is pitting. There is seepage of clear serous fluid from the skin of the lower legs. Redness involving both lower legs. Noted that on squeezing that there is NO tenderness elicited and there is also absence of any warmth. Difficult to palpate pedal pulses due to edema. Petechiae, purpura and ecchymosis involving the right foot and toes. 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 Conscious and alert. Oriented x3. Cranial nerves II through XII grossly intact. Gait was not tested. Results Lab / Micro Data Result Diagrams: 04/13/21 15:20 04/13/21 16:09 Labs: Laboratory Results - last 24 hr 04/13/21 15:20: WBC 8.9, RBC 3.58 L, Hgb 11.1 L, Hct 32.7 L, MCV 91.3, MCH 31.0, MCHC 33.9, RDW Std Deviation 46.0 H, RDW Coeff of Danny 13.7, Plt Count 198, MPV 10.5, Immature Gran % (Auto) 0.900, Neut % (Auto) 73.7 H, Lymph % (Auto) 16.8 L, [place] % (Auto) 8.0, Eos % (Auto) 0.3, Baso % (Auto) 0.3, Absolute Neuts (auto) 6.5, Absolute Lymphs (auto) 1.49, Nucleated RBC % 0 04/13/21 16:09: Sodium 135 L, Potassium 3.2 L, Chloride 102, Carbon Dioxide 25.0, Anion Gap 8, BUN 26 H, Creatinine 0.97, Estim Creat Clear Calc 31.41, Est GFR (MDRD) Af Amer 70, Est GFR (MDRD) Non-Af 58 L, BUN/Creatinine Ratio 26.8 H, Glucose 88, Calcium 8.2 L Assessment & Plan Assessment/Plan (1) Swelling of both lower extremities: PLAN: Suspect possible combination of factors including fluid overload from recent fluid resuscitation for hypovolemia, venous insufficiency systemic venous hypertension with stasis dermatitis, hypoalbuminemia and right-sided heart failure/pulmonary hypertension. Doubt patient has cellulitis as there is absence of pain, tenderness or warmth, leukocytosis or any other systemic symptoms. Reasonable to place on IV antibiotics until etiology definitively determined. Will check venous ultrasound to evaluate lower extremity venous system and rule out DVT specifically. Work-up hypoalbuminemia including urinalysis and urine protein creatinine ratio determined 24-hour urine protein excretion. Echocardiogram to evaluate to rule out pulmonary hypertension and right ventricular failure/cor pulmonale as a cause of her lower extremity edema [findings on cardiac examination suggestive]. Low-dose of IV Lasix while monitoring blood pressure and renal function closely. IV albumin to improve osmotic pressures and help with mobilization of tissue fluid. Elevate both lower extremities. Sumit wrap for compression. (2) Hypokalemia: PLAN: Uncertain of etiology. We will replete orally. Monitor. (3) Hypoalbuminemia: PLAN: Work-up as above. (4) Morbid obesity: PLAN: Lifestyle modifications. Charges/Coding Visit Charges Inpatient E&M: 18774 Init Hosp L3
--- NOTE | 2021-04-13 18:22 | NURSING ---
MED SURG OBS OLEGHE CELLULITIS
[2021-04-13 19:50] VITALS: BMI 29.2
[2021-04-13 19:51] VITALS: BP 125/55; PULSE 70; RESP 16; TEMP 36.4; O2SAT 100
[2021-04-13 19:58] LABS: Mucous, Urine 0 SEEN /hpf (<or=2+); Red Blood Cells-Urine 0 SEEN /hpf (0-5)
[2021-04-13 20:03] LABS: Color, Urine Yellow (Yellow); Glucose, Dipstick Normal (Normal); Ketone-Dipstick Negative (Negative); Leukocyte Esterase-Dipstick 500 /ul (Negative); Nitrite-Dipstick Positive (Negative); Occult Blood-Urine Negative /ul (Negative); Protein-Dipstick Negative (Negative); Specific Gravity, Urine 1.015 (1.002-1.030); Urine Bilirubin Dipstick Negative (Negative); Urine Urobilinogen Normal (Normal)
[2021-04-13 20:04] LABS: Urine Clarity Cloudy (Clear)
[2021-04-13 20:20] LABS: Protein, Urine (Random) 15.3 mg/dL (<11.9); Protein:Creat Ratio 285 mg/g CRE (0-200); Urine Sodium 18 mmol/L (Not Establ.)
[2021-04-13 20:22] LABS: Squamous Epithelial Cells - UA 0-5 SEEN /hpf (5-10)
[2021-04-13 20:23] LABS: Bacteria 2+ /hpf (None Seen); White Blood Cells 25-50 SEEN /hpf (0-5)
[2021-04-13] MEDS: Albumin Human 25% (100 mL) 25 GM/100 ML BAG IV (20:25)
[2021-04-13] MEDS: 0.9% Saline Lock 10 ML Syringe IV (20:37)
[2021-04-13] MEDS: Heparin Injection (Vial) 5,000 UNIT/ML VIAL 5000 UNIT SC (21:42)
[2021-04-13] MEDS: Pramipexole Di-HCl 0.5 MG Tablet PO (21:42)
[2021-04-13] MEDS: Midodrine HCl 5 MG Tablet PO (21:42)
[2021-04-13] MEDS: Doxycycline 100 MG CAPSULE PO (21:43)
[2021-04-13] MEDS: MELATONIN 10 MG TABLET PO (21:44)
[2021-04-13] MEDS: Furosemide 20 MG/2 ML VIAL IV (22:19)
[2021-04-13] MEDS: Cefazolin 1 GM/50 ML BAG IV (22:20)
[2021-04-14 02:06] VITALS: BP 107/59; PULSE 70; RESP 16; TEMP 36.4; O2SAT 100
[2021-04-14] MEDS: Heparin Injection (Vial) 5,000 UNIT/ML VIAL 5000 UNIT SC ×3 (06:09→21:32)
[2021-04-14] MEDS: Furosemide 20 MG/2 ML VIAL IV ×2 (06:09→14:25)
[2021-04-14] MEDS: Cefazolin 1 GM/50 ML BAG IV (06:09)
[2021-04-14] MEDS: Midodrine HCl 5 MG Tablet PO ×3 (06:17→21:32)
[2021-04-14 06:29] LABS: Absolute Neutrophil Count 4.8 X10^3/uL (2.0-7.7); Basophil# 0.03 X10^3/uL; Basophil% 0.4 % (0-1); Eosinophil# 0.09 X10^3/uL; Eosinophils% 1.3 % (0-5); Hematocrit 27.1 % (37-47); Hemoglobin 9.1 g/dL (12.0-15.0); Lymphocyte % 18.8 % (19-41); Mean Corp Hgb Conc 33.6 g/dL (32-36); Mean Corpuscular Volume 92.2 fL (81-99); Mean Platelet Vol. 10.7 fl (6.2-12.0); Monocyte# 0.63 X10^3/uL; Monocyte% 9.1 % (0-10); NRBC Flagged by Analyzer 0 % (0-5); Neutrophil # 4.82 X10^3/uL (2.7-7.7); Neutrophil % 69.5 % (47-70); Platelet Count 181 K/mm3 (150-450); RBC Distribution Width CV 13.8 % (11.6-14.6); RBC Distribution Width SD 46.4 fl (35.1-43.9); Red Blood Count 2.94 M/mm3 (4.2-5.4); White Blood Count 6.9 K/mm3 (4.4-11.0)
[2021-04-14 06:34] LABS: International Normalized Ratio 1.2; Prothrombin Time (Protime)PT. 14.5 SECONDS (11.7-14.9)
[2021-04-14] MEDS: Albumin Human 25% (100 mL) 25 GM/100 ML BAG IV ×2 (06:38→14:25)
[2021-04-14 07:29] LABS: AST(SGOT) 20 U/L (15-37); Alanine Aminotransfer ALT/SGPT 30 U/L (13-56); Albumin, Serum 2.3 g/dL (3.2-5.0); Alkaline Phosphatase 130 U/L (45-117); Anion Gap 9 (5-15); BUN 21 mg/dL (7-18); BUN/Creat Ratio 20.8 RATIO (10-20); Calcium,Total 7.2 mg/dL (8.5-10.1); Chloride 103 mmol/L (98-107); Creatinine, Serum 1.01 mg/dL (0.55-1.02); EST Glomerular Filtration Rate 55 mL/min (>60); Est Glom Filt Rate - Afr Amer 67 mL/min (>60); Estimated Creatinine Clearance 30.17 ml/min; Globulin 2.2 g/dL (2.2-4.2); Glucose 121 mg/dL (74-106); Magnesium 1.6 mg/dL (1.6-2.6); Potassium 2.7 mmol/L (3.5-5.1); Protein, Total 4.5 g/dL (6.4-8.2); Sodium Level 138 mmol/L (136-145); Thyroid Stim Hormone (TSH) 1.16 uIU/mL (0.358-3.74)
[2021-04-14 08:00] VITALS: BP 100/51; PULSE 82; RESP 16; TEMP 37; O2SAT 99
[2021-04-14] MEDS: 0.9% Saline Lock 10 ML Syringe IV ×2 (08:49→09:32)
[2021-04-14] MEDS: Ascorbic Acid 500 MG Tablet PO ×3 (08:49→16:59)
[2021-04-14] MEDS: Iron Polysaccharide Complex 150 MG CAPSULE PO (08:50)
[2021-04-14] MEDS: Doxycycline 100 MG CAPSULE PO ×2 (08:51→21:32)
[2021-04-14] MEDS: Pyridoxine HCl 100 MG Tablet PO (08:51)
[2021-04-14] MEDS: Potassium Chloride Oral Tablet 20 MEQ 60 MEQ PO (09:07)
--- NOTE | 2021-04-14 11:03 | PCM.PN.HOSP ---
Subjective Subjective Doing well, feels better today. Swelling seems to be much improved, her legs are wrapped. Denies any shortness of breath or chest pain. Objective Data Objective Data Vital Signs: Vital Signs Temp Pulse Resp BP Pulse Ox 98.6 F 82 16 100/51 L 99 04/14/21 08:00 04/14/21 08:00 04/14/21 08:00 04/14/21 08:00 04/14/21 08:00 Oxygen Delivery Method Room Air Weight: 154 lb 1.65 oz Body Mass Index (BMI) 29.2 Intake & Output: Intake and Output for Last 24 Hours 04/13/21 04/14/21 04/15/21 03:59 03:59 03:59 Intake Total 262 / 262 150 / 150 Output Total 400 / 400 1600 / 1600 Balance -138 / -138 -1450 / -1450 Lab / Micro Data Result Diagrams: 04/14/21 05:50 04/14/21 05:50 Labs: Laboratory Results - last 24 hr 04/13/21 15:20: WBC 8.9, RBC 3.58 L, Hgb 11.1 L, Hct 32.7 L, MCV 91.3, MCH 31.0, MCHC 33.9, RDW Std Deviation 46.0 H, RDW Coeff of Danny 13.7, Plt Count 198, MPV 10.5, Immature Gran % (Auto) 0.900, Neut % (Auto) 73.7 H, Lymph % (Auto) 16.8 L, [place] % (Auto) 8.0, Eos % (Auto) 0.3, Baso % (Auto) 0.3, Absolute Neuts (auto) 6.5, Absolute Lymphs (auto) 1.49, Nucleated RBC % 0 04/13/21 15:20: B-Natriuretic Peptide 50.0 04/13/21 16:09: Sodium 135 L, Potassium 3.2 L, Chloride 102, Carbon Dioxide 25.0, Anion Gap 8, BUN 26 H, Creatinine 0.97, Estim Creat Clear Calc 31.41, Est GFR (MDRD) Af Amer 70, Est GFR (MDRD) Non-Af 58 L, BUN/Creatinine Ratio 26.8 H, Glucose 88, Calcium 8.2 L 04/13/21 19:40: Urine Color Yellow, Urine Clarity Cloudy, Urine pH 6.0, Ur Specific [place] 1.015, Urine Protein Negative, Urine Glucose (UA) Normal, Urine Ketones Negative, Urine Occult Blood Negative, Urine Nitrite Positive H, Urine Bilirubin Negative, Urine Urobilinogen Normal, Ur Leukocyte Esterase 500 H, Urine RBC 0 SEEN, Urine WBC 25-50 SEEN, Ur Squamous Epith Cells 0-5 SEEN, Urine Bacteria 2+, Urine Mucus 0 SEEN 04/13/21 19:40: U Random Total Protein 15.3 H, Ur Random Sodium 18, Urine Creatinine 53.60, Protein/Creatinin Ratio 285 H 04/14/21 05:50: WBC 6.9, RBC 2.94 L, Hgb 9.1 L, Hct 27.1 L, MCV 92.2, MCH 31.0, MCHC 33.6, RDW Std Deviation 46.4 H, RDW Coeff of Danny 13.8, Plt Count 181, MPV 10.7, Immature Gran % (Auto) 0.900, Neut % (Auto) 69.5, Lymph % (Auto) 18.8 L, [place] % (Auto) 9.1, Eos % (Auto) 1.3, Baso % (Auto) 0.4, Absolute Neuts (auto) 4.8, Absolute Lymphs (auto) 1.30, Nucleated RBC % 0 04/14/21 05:50: PT 14.5, INR 1.2 04/14/21 05:50: Sodium 138, Potassium 2.7 L*, Chloride 103, Carbon Dioxide 26.0, Anion Gap 9, BUN 21 H, Creatinine 1.01, Estim Creat Clear Calc 30.17, Est GFR (MDRD) Af Amer 67, Est GFR (MDRD) Non-Af 55 L, BUN/Creatinine Ratio 20.8 H, Glucose 121 H, Calcium 7.2 L, Phosphorus 2.0 L, Magnesium 1.6, Total Bilirubin 0.60, AST 20, ALT 30, Alkaline Phosphatase 130 H, Total Protein 4.5 L, Albumin 2.3 L, Globulin 2.2, Albumin/Globulin Ratio 1.0, TSH 1.16 Physical Exam Const alert, oriented x3 and no apparent distress General Appearance: cooperative HEENT normocephalic and moist oral mucous membranes Eyes PERRL, EOMs intact bilaterally and conjunctivae normal Neck supple and no JVD Resp normal respiratory effort, no retractions, no use of accessory muscles and clear to auscultation bilaterally Auscultation: Negative for crackles, rales, rhonchi or wheezes Cardio regular rate, regular rhythm, S1 normal heart sound and S2 normal heart sound Heart Sounds: murmur GI soft to palpation, non-tender and non-distended; Negative for hepatosplenomegaly Extremity no clubbing, cyanosis or edema Skin no rashes or lesions noted Neuro no focal motor deficits and no sensory deficits noted Psych affect normal Appearance: appropriate Assessment & Plan Assessment/Plan (1) Swelling of both lower extremities: (2) Hypokalemia: (3) Hypoalbuminemia: (4) Morbid obesity: PLAN: 1. Bilateral lower extremity swelling/HTN/HLD -Much improved, currently wrapped. -Afebrile without a leukocytosis, will discontinue IV antibiotics -Currently receiving albumin and Lasix, her albumin will be finished this afternoon we will continue with IV Lasix -We will replace electrolytes as necessary -She is supposed be on Lasix 20 mg p.o. as needed, will continue with the IV -Continue with lisinopril -Echo pending as well as venous Dopplers 2. Restless leg syndrome -Stable -Continue with pramipexole DVT: Heparin Charges/Coding Visit Charges Inpatient E&M: 13467 Subs Hosp L2
[2021-04-14 14:00] VITALS: BP 121/65; PULSE 68; RESP 16; TEMP 36.7; O2SAT 99
[2021-04-14 19:55] VITALS: BP 94/56; PULSE 66; RESP 18; TEMP 36.6; O2SAT 100
[2021-04-14] MEDS: MELATONIN 10 MG TABLET PO (21:32)
[2021-04-14] MEDS: Pramipexole Di-HCl 0.5 MG Tablet PO (21:32)
[2021-04-14 21:37] VITALS: BP 103/59
[2021-04-15 02:05] VITALS: BP 95/50; PULSE 71; RESP 18; TEMP 36.7; O2SAT 100
[2021-04-15 05:19] VITALS: BP 97/51
[2021-04-15] MEDS: Midodrine HCl 5 MG Tablet PO ×3 (05:23→22:31)
[2021-04-15] MEDS: Heparin Injection (Vial) 5,000 UNIT/ML VIAL 5000 UNIT SC ×3 (05:23→22:32)
[2021-04-15 06:44] LABS: Absolute Lymphocyte Count 2.27 X10^3/uL (0.83-4.51); Absolute Neutrophil Count 3.6 X10^3/uL (2.0-7.7); Basophil# 0.04 X10^3/uL; Basophil% 0.6 % (0-1); Eosinophil# 0.19 X10^3/uL; Eosinophils% 2.8 % (0-5); Hemoglobin 8.8 g/dL (12.0-15.0); Lymphocyte # 2.27 X10^3/ul (0.83-4.51); Mean Corp Hgb Conc 33.8 g/dL (32-36); Mean Corpuscular Hgb 31.2 pg (27.0-32.0); Mean Corpuscular Volume 92.2 fL (81-99); Mean Platelet Vol. 10.6 fl (6.2-12.0); Monocyte# 0.48 X10^3/uL; Monocyte% 7.2 % (0-10); NRBC Flagged by Analyzer 0 % (0-5); Neutrophil # 3.62 X10^3/uL (2.7-7.7); Neutrophil % 54.2 % (47-70); Platelet Count 159 K/mm3 (150-450); RBC Distribution Width CV 14.1 % (11.6-14.6); RBC Distribution Width SD 47.3 fl (35.1-43.9); Red Blood Count 2.82 M/mm3 (4.2-5.4); White Blood Count 6.7 K/mm3 (4.4-11.0)
[2021-04-15 07:10] LABS: Anion Gap 6 (5-15); BUN 20 mg/dL (7-18); BUN/Creat Ratio 21.6 RATIO (10-20); Calcium,Total 7.4 mg/dL (8.5-10.1); Chloride 101 mmol/L (98-107); Creatinine, Serum 0.93 mg/dL (0.55-1.02); EST Glomerular Filtration Rate 61 mL/min (>60); Est Glom Filt Rate - Afr Amer 74 mL/min (>60); Estimated Creatinine Clearance 32.77 ml/min; Glucose 74 mg/dL (74-106); Potassium 3.6 mmol/L (3.5-5.1); Sodium Level 136 mmol/L (136-145)
[2021-04-15 07:52] VITALS: BP 108/40; PULSE 59; RESP 16; TEMP 36.7; O2SAT 98
[2021-04-15] MEDS: Ascorbic Acid 500 MG Tablet PO ×3 (08:00→16:17)
[2021-04-15] MEDS: Iron Polysaccharide Complex 150 MG CAPSULE PO (08:00)
[2021-04-15] MEDS: Pyridoxine HCl 100 MG Tablet PO (08:00)
[2021-04-15] MEDS: Doxycycline 100 MG CAPSULE PO ×2 (08:01→22:29)
--- NOTE | 2021-04-15 08:26 | NURSING ---
wound photo: right lateral lower leg/foot
--- NOTE | 2021-04-15 08:27 | NURSING ---
wound photo: right medial foot
--- NOTE | 2021-04-15 08:28 | NURSING ---
skin photo: bilateral lower leg
--- NOTE | 2021-04-15 10:10 | CASEMGMT ---
Addendum entered by Annika Grant 04/15/21 12:07: Notified nurse Vega of pickup info for pt when dc. SN added to [facility] order for monitoring of LE's. Per Jayshree at [facility], this will not be a problem. Original Note: RN CM Readmission Note Previous Admission: 03/19/21-03/21/21 Diagnosis: gastroenteritis, TICO DC Disposition: Home with [facility], [facility] and private duty Current Admission Presentation: lower extremity edema Pt presented to ER from home with lower extremity edema. KHANH STALLINGS in to pt room. Pt states she has been taking her medications correctly as she has [facility] to manage her med boxes weekly. Pt states she has followed up with and been in touch. Pt reports having HHC and private duty as well. Pt lives with son Adalberto although pt asked this RN CM to call her son Jaydon to confirm services. TC to [facility], pt is active with PT and OT. Communicated with Joo in [facility] who confirms pt is being seen by them. TC to son Jaydon who also confirms the above. Jaydon is agreeable to pt resuming these services upon dc as well as the patient. Jaydon asks nurse to contact her son Adalberto upon dc as he will be picking pt up. States he may need to be texted instead of called as he is busy at work. RN CM to notify pt nurse Silvia. Faxed [facility] and resumption order at this time. KHANH STALLINGS to follow for pt needs. Discharge Plan: Resume [facility] PT and OT, resume private duty and resume [facility].
--- NOTE | 2021-04-15 11:20 | PCM.PN.HOSP ---
Subjective Subjective Doing well, feels a little bit better. No shortness of breath or chest pain. Swelling seems to be a little bit improved today. Objective Data Objective Data Vital Signs: Vital Signs Temp Pulse Resp BP Pulse Ox 98.0 F 59 L 16 108/40 L 98 04/15/21 07:52 04/15/21 07:52 04/15/21 07:52 04/15/21 07:52 04/15/21 07:52 Oxygen Delivery Method Room Air Weight: 153 lb 10.595 oz Body Mass Index (BMI) 29.2 Intake & Output: Intake and Output for Last 24 Hours 04/14/21 04/15/21 04/16/21 03:59 03:59 03:59 Intake Total 262 / 262 611 / 611 Output Total 400 / 400 4600 / 4600 300 / 300 Balance -138 / -138 -3989 / -3989 -300 / -300 Lab / Micro Data Result Diagrams: 04/15/21 06:14 04/15/21 06:14 Labs: Laboratory Results - last 24 hr 04/15/21 06:14: WBC 6.7, RBC 2.82 L, Hgb 8.8 L, Hct 26.0 L, MCV 92.2, MCH 31.2, MCHC 33.8, RDW Std Deviation 47.3 H, RDW Coeff of Danny 14.1, Plt Count 159, MPV 10.6, Immature Gran % (Auto) 1.200 H, Neut % (Auto) 54.2, Lymph % (Auto) 34.0, [place] % (Auto) 7.2, Eos % (Auto) 2.8, Baso % (Auto) 0.6, Absolute Neuts (auto) 3.6, Absolute Lymphs (auto) 2.27, Nucleated RBC % 0 04/15/21 06:14: Sodium 136, Potassium 3.6, Chloride 101, Carbon Dioxide 29.0, Anion Gap 6, BUN 20 H, Creatinine 0.93, Estim Creat Clear Calc 32.77, Est GFR (MDRD) Af Amer 74, Est GFR (MDRD) Non-Af 61, BUN/Creatinine Ratio 21.6 H, Glucose 74, Calcium 7.4 L Radiography Diagnostic Testing: Radiology Impression Venous Doppler Study 04/13/21 18:00 Interpretation Summary Deep veins of the lower extremities are bilaterally patent and compressible segmentally. There is no evidence of deep vein thrombosis on either side. Valvular competence appears intact within the proximal deep venous systems bilaterally. The great saphenous veins appear bilaterally patent and compressible segmentally. Ordering Physician: Fxo Holland Referring Physician: CHADD ANTUNEZ Performed By: Lianet Jimenez, ISAMAR, RVT Physical Exam Const alert, oriented x3 and no apparent distress General Appearance: cooperative HEENT normocephalic and moist oral mucous membranes Eyes PERRL, EOMs intact bilaterally and conjunctivae normal Neck supple and no JVD Resp normal respiratory effort, no retractions, no use of accessory muscles and clear to auscultation bilaterally Auscultation: Negative for crackles, rales, rhonchi or wheezes Cardio regular rate, regular rhythm, S1 normal heart sound and S2 normal heart sound Heart Sounds: murmur GI soft to palpation, non-tender and non-distended; Negative for hepatosplenomegaly Extremity no clubbing, cyanosis or edema Skin no rashes or lesions noted Neuro no focal motor deficits and no sensory deficits noted Psych affect normal Appearance: appropriate Assessment & Plan Assessment/Plan (1) Swelling of both lower extremities: (2) Hypokalemia: (3) Hypoalbuminemia: (4) Morbid obesity: PLAN: 1. Bilateral lower extremity swelling/HTN/HLD -Much improved, currently wrapped. -Afebrile without a leukocytosis, will discontinue IV antibiotics -We will replace electrolytes as necessary -She is supposed be on Lasix 20 mg p.o. as needed, will continue with the IV -Continue with lisinopril -Echo pending -Doppler ultrasounds were negative for DVT. -PT/OT 2. Restless leg syndrome -Stable -Continue with pramipexole DVT: Heparin Charges/Coding Visit Charges Inpatient E&M: 66144 Subs Hosp L2
--- NOTE | 2021-04-15 12:27 | CASEMGMT ---
Pt screened with [facility] Palliative Care Screening Tool due to readmission, pt did not meet criteria.
[2021-04-15 14:00] VITALS: BP 92/47; PULSE 67; RESP 16; TEMP 36.6; O2SAT 99
--- NOTE | 2021-04-15 15:06 | CHAPLAIN ---
Type of Pastoral Visit _x__ Initial Visit ___ Follow-up Visit ___ On-call Visit ___ General Patient Visit ___ Spiritual Assessment ___ Family Conference ___ Bereavement ___ Rapid Response ___ Code Blue ___ Other (describe below) Pastoral Care Referral From _x__ Patient ___ Family ___ Nurse ___ Physician ___ Rn Care Transition ___ Milk Route Supervisor ___ Other (describe below) Sacrament/Intervention _x__ Active listening ___ Anointing ___ Episcopal ___ Bereavement ___ Communion _x__ Jacinta exploration ___ _x__ Life review _x__ Prayer ___ Reconciliation ___ Sacrament of Sick ___ Supportive presence ___ Wedding ___ Other (describe below) Pastoral Comments
[2021-04-15 16:00] VITALS: BP 101/45
[2021-04-15 22:09] VITALS: BP 103/44; PULSE 71; RESP 16; TEMP 37; O2SAT 99
[2021-04-15] MEDS: Pramipexole Di-HCl 0.5 MG Tablet PO (22:30)
[2021-04-15] MEDS: 0.9% Saline Lock 10 ML Syringe IV (22:33)
[2021-04-15] MEDS: MELATONIN 10 MG TABLET PO (22:35)
[2021-04-16 05:15] VITALS: BP 108/42; PULSE 63; RESP 16; TEMP 36.6; O2SAT 100
[2021-04-16] MEDS: Midodrine HCl 5 MG Tablet PO (05:22)
[2021-04-16] MEDS: Heparin Injection (Vial) 5,000 UNIT/ML VIAL 5000 UNIT SC (05:22)
[2021-04-16 06:20] VITALS: BP 102/54; PULSE 58
[2021-04-16 07:05] LABS: Absolute Lymphocyte Count 2.76 X10^3/uL (0.83-4.51); Absolute Neutrophil Count 3.7 X10^3/uL (2.0-7.7); Basophil# 0.06 X10^3/uL; Basophil% 0.8 % (0-1); Eosinophil# 0.24 X10^3/uL; Eosinophils% 3.2 % (0-5); Lymphocyte # 2.76 X10^3/ul (0.83-4.51); Mean Corp Hgb Conc 33.3 g/dL (32-36); Mean Corpuscular Hgb 30.7 pg (27.0-32.0); Mean Corpuscular Volume 92.2 fL (81-99); Mean Platelet Vol. 10.8 fl (6.2-12.0); Monocyte# 0.62 X10^3/uL; Monocyte% 8.3 % (0-10); NRBC Flagged by Analyzer 0 % (0-5); Neutrophil # 3.69 X10^3/uL (2.7-7.7); Neutrophil % 49.5 % (47-70); Platelet Count 172 K/mm3 (150-450); RBC Distribution Width CV 14.2 % (11.6-14.6); RBC Distribution Width SD 47.8 fl (35.1-43.9); Red Blood Count 2.93 M/mm3 (4.2-5.4); White Blood Count 7.5 K/mm3 (4.4-11.0)
[2021-04-16 07:30] LABS: Anion Gap 4 (5-15); BUN 21 mg/dL (7-18); BUN/Creat Ratio 22.2 RATIO (10-20); Calcium,Total 7.6 mg/dL (8.5-10.1); Chloride 103 mmol/L (98-107); Creatinine, Serum 0.95 mg/dL (0.55-1.02); EST Glomerular Filtration Rate 59 mL/min (>60); Est Glom Filt Rate - Afr Amer 72 mL/min (>60); Estimated Creatinine Clearance 32.08 ml/min; Glucose 79 mg/dL (74-106); Potassium 3.8 mmol/L (3.5-5.1); Sodium Level 137 mmol/L (136-145)
[2021-04-16 07:50] VITALS: BP 110/51; PULSE 59; RESP 18; TEMP 36.5; O2SAT 100
[2021-04-16] MEDS: Iron Polysaccharide Complex 150 MG CAPSULE PO (07:55)
[2021-04-16] MEDS: Pyridoxine HCl 100 MG Tablet PO (07:55)
[2021-04-16] MEDS: Doxycycline 100 MG CAPSULE PO (07:55)
[2021-04-16] MEDS: Ascorbic Acid 500 MG Tablet PO (07:55)
--- NOTE | 2021-04-16 09:33 | PCM.DC ---
Discharge Instructions Diet Discharge Diet: Low fat / Low cholesterol and 8 Cup Fluid Restriction Activity Discharge Activity: Return to Normal Activity Dressing / Incision Call your doctor if you observe: Fever of 101 or Higher, Shortness of breath, Dizziness, Swelling in the ankles, Chest pain and Increased palpitations (irregular heartbeat) Follow Up Care Test Results: Test results from this visit will be discussed in further detail at your follow-up appointment, if applicable. Discharge Plan Admission Admit Date/Time: 04/13/21 18:03 Attending Provider: Bashir Ponce Primary Care Provider: Jaye Rodriguez Instructions Additional Instructions / Restrictions: Follow-up with your PCP in 3 to 5 days obtain a CBC and a BMP for outpatient monitoring. Discharge Orders/Prescriptions Prescriptions: Continued cholecalciferol (vitamin D3) 1,000 UNIT tablet 25 mcg PO DAILY RF: 0 melatonin 10 MG tablet 10 mg PO QHS RF: 0 aspirin 81 MG tablet 81 mg PO DAILY@0800 RF: 0 polysaccharide iron complex 150 MG capsule 150 mg PO DAILYCM RF: 0 pramipexole 0.5 MG tablet 0.5 mg PO QHS RF: 0 pyridoxine (vitamin B6) 100 MG tablet 50 mg PO DAILY@0800 RF: 0 Vitamin K2 capsule 1 tab PO DAILY RF: 0 Doxycycline 100 MG tablet 100 mg PO BID RF: 0 ascorbic acid (vitamin C) [Vitamin C] 1,000 mg Tablet 1,000 mg PO DAILY RF: 0 lisinopril 20 mg Tablet 20 mg PO DAILY RF: 0 furosemide [Lasix] 20 mg Tablet 20 mg PO DAILY PRN (Reason: swelling) RF: 0 acidophilus-pectin, citrus 1 tab PO/SL DAILY RF: 0 Referrals / Follow Up: Jaye Rodriguez MD [Primary Care Provider] - Within 1 Week Disposition Disposition (needs filled in before D/C Order can be placed): Home Health Service
--- NOTE | 2021-04-16 10:27 | NURSING ---
pt states said nurse needs to call pt son Adalberto to inform of discharge as he is the one who will pick her up. Adalberto phoned as per number in demographics list, floor number left and requested he call back to be updated on discharge planning for his mother.
--- NOTE | 2021-04-16 10:45 | NURSING ---
spoke with pt brother Jaydon- as per prior note by HAYLIE Adalberto is to be texted and after speaking with HAYLIE Roblero and Charge Nurse Imelda, no capabilitiy of being able to text with current hospital phone. Jaydon updated and is agreeable to texting his brother Adalberto to update on pt discharge, said nurse requesting that Adalberto call to [facility] to inform what time he will be here to pick his mother up and Jaydon agreeable.
--- NOTE | 2021-04-16 10:49 | CASEMGMT ---
Addendum entered by Annika Grant 04/16/21 10:56: KHANH STALLINGS in to pt room to make sure pt is aware that SN was added and that they will be filling her med box until they dc from SN. She is also aware that [facility] will be on hold until SN dc's. TC to Jayshree at [facility] to verify that they can set up med boxes. She states they can. She is aware of [facility] who will be on hold until their SN dc's as well. Addendum entered by Annika Grant 04/16/21 10:50: Notified Joo in [facility] that pt will be dc'd today with HHC and SN added. Original Note: KHANH STALLINGS called [facility], spoke with Jayshree. She is aware pt is dc'ing today and that [facility] will be following. DC instructions faxed at this time.
[2021-04-16 12:21] VITALS: BP 118/50; PULSE 63; RESP 18; TEMP 36.6; O2SAT 99
--- NOTE | 2021-04-16 13:50 | PCM.DC.SUM ---
Providers Date of Admission: 04/13/21 Primary Care Physician: Dr. Jaye Rodriguez MD Consultations 04/13/21 18:04 Consult: Onc/Wound/assemblyman or woman Routine Comment: Reason For Visit: LOWER EXTREMITY EDEMA & REDNESS Diagnosis Discharge Diagnosis (1) Swelling of both lower extremities: Status: Acute Code(s): M79.89 - Other specified soft tissue disorders (2) Hypokalemia: Status: Acute Code(s): E87.6 - Hypokalemia (3) Hypoalbuminemia: Status: Acute Code(s): E88.09 - Other disorders of plasma-protein metabolism, not elsewhere classified (4) Morbid obesity: Status: Acute Code(s): E66.01 - Morbid (severe) obesity due to excess calories Medications at Discharge Home Medications cholecalciferol (vitamin D3) 25 mcg PO DAILY 02/10/20 melatonin 10 mg PO QHS tab 02/27/20 aspirin 81 mg PO DAILY@0803/17/20 polysaccharide iron complex 150 mg PO DAILYCM 03/17/20 pramipexole 0.5 mg PO QHS 03/17/20 pyridoxine (vitamin B6) 50 mg PO DAILY@0803/17/20 Doxycycline 100 mg PO BID 11/06/20 Vitamin K2 1 tab PO DAILY 11/06/20 acidophilus-pectin, citrus 1 tab PO/SL DAILY 04/13/21 ascorbic acid (vitamin C) [Vitamin C] 1,000 mg PO DAILY 04/13/21 furosemide [Lasix] 20 mg PO DAILY PRN 04/13/21 lisinopril 20 mg PO DAILY 04/13/21 Hospital Course Summary of Care Provided Minutes Spent on Discharge: 37 Hospital Course: Per HPI: MCKINLEY MELO, is a 85 F who was admitted here in the hospital 3 weeks ago for hypotension caused by an acute diarrheal illness as well as acute kidney injury. At the time she was rehydrated and volume repleted and safely discharged home. Presents now with increasing lower extremity swelling involving both lower extremities. Patient and family became concerned when she developed redness as well as blotchy red patches in the right foot. She denies any fever or chills or malaise. She categorically states that swelling and redness without any pain. She denies any chest pain, shortness of breath, exertional dyspnea [very limited activity though to due to her diffuse and generalized osteoarthritis], paroxysmal nocturnal dyspnea or orthopnea. Hospital Course: 1. Bilateral lower extremity edema/HTN/SQM-48-htcp-old female presented to the hospital with lower extremity swelling. 3 weeks prior to admission she was in the hospital for hypotension secondary to acute diarrhea as well as an TICO. At that time she was given IV fluids there is a possibility that the Lasix that she takes at home is not a to off the amount of fluid that she had received especially since she takes Lasix at home as needed. She was started on albumin and Lasix here and had good diuresis and decrease in her lower extremity swelling. She did well with PT and OT and felt like she could go home with home health care today. She had venous Dopplers which were unremarkable for DVT, and her echo was normal with no systolic dysfunction. Diastolic dysfunction could not be assessed. We will continue with her home medications and have her follow-up with her PCP as an outpatient. I did discuss with her the plan for discharge today and she expressed understanding of the risk benefits going home and would like to go home today. Physical Exam Const alert, oriented x3 and no apparent distress General Appearance: cooperative HEENT normocephalic and moist oral mucous membranes Eyes PERRL, EOMs intact bilaterally and conjunctivae normal Neck supple and no JVD Resp normal respiratory effort, no retractions, no use of accessory muscles and clear to auscultation bilaterally Auscultation: Negative for crackles, rales, rhonchi or wheezes Cardio regular rate, regular rhythm, S1 normal heart sound and S2 normal heart sound Heart Sounds: murmur GI soft to palpation, non-tender and non-distended; Negative for hepatosplenomegaly Extremity no clubbing, cyanosis or edema Extremity Narrative: Lower extremities are wrapped Skin no rashes or lesions noted Neuro no focal motor deficits and no sensory deficits noted Psych affect normal Appearance: appropriate Medical Records Data Medical Nutrition Assessment Dietitian: Nutrition Therapy Diagnosis Start: 04/15/21 12:38 Freq: Status: Active Protocol: Document 04/15/21 12:51 ADRIA (Rec: 04/15/21 12:51 [id number]) Nutrition Malnutrition Evidence of Malnutrition Exists No Intake Problem None at this time Status Active Problem Clinical Problem None at this time Status Active Problem Recommendation Dietitian Recommendations/Changes Continue liberal Regular diet Weight / BMI Weight Weight: 156 lb 4.924 oz Body Mass Index (BMI) 29.2 ABG / Lab / Microbiology Data Result Diagrams: 04/16/21 06:40 04/16/21 06:40 Laboratory: Laboratory Results - last 24 hr 04/16/21 06:40: WBC 7.5, RBC 2.93 L, Hgb 9.0 L, Hct 27.0 L, MCV 92.2, MCH 30.7, MCHC 33.3, RDW Std Deviation 47.8 H, RDW Coeff of Danny 14.2, Plt Count 172, MPV 10.8, Immature Gran % (Auto) 1.200 H, Neut % (Auto) 49.5, Lymph % (Auto) 37.0, [place] % (Auto) 8.3, Eos % (Auto) 3.2, Baso % (Auto) 0.8, Absolute Neuts (auto) 3.7, Absolute Lymphs (auto) 2.76, Nucleated RBC % 0 04/16/21 06:40: Sodium 137, Potassium 3.8, Chloride 103, Carbon Dioxide 30.0, Anion Gap 4 L, BUN 21 H, Creatinine 0.95, Estim Creat Clear Calc 32.08, Est GFR (MDRD) Af Amer 72, Est GFR (MDRD) Non-Af 59 L, BUN/Creatinine Ratio 22.2 H, Glucose 79, Calcium 7.6 L D/C Instructions Discharge Diet: Low fat / Low cholesterol and 8 Cup Fluid Restriction Call your doctor if you observe: Fever of 101 or Higher, Shortness of breath, Dizziness, Swelling in the ankles, Chest pain and Increased palpitations (irregular heartbeat) Meaningful Use Info Meaningful Use Diagnoses (Choose all that apply): None applicable Discharge Plan Admission Admit Date/Time: 04/13/21 18:03 Attending Provider: Bashir Ponce Primary Care Provider: Jaye Rodriguez Instructions Additional Instructions / Restrictions: Follow-up with your PCP in 3 to 5 days obtain a CBC and a BMP for outpatient monitoring. Discharge Orders/Prescriptions Prescriptions: Continued cholecalciferol (vitamin D3) 1,000 UNIT tablet 25 mcg PO DAILY RF: 0 melatonin 10 MG tablet 10 mg PO QHS RF: 0 aspirin 81 MG tablet 81 mg PO DAILY@0800 RF: 0 polysaccharide iron complex 150 MG capsule 150 mg PO DAILYCM RF: 0 pramipexole 0.5 MG tablet 0.5 mg PO QHS RF: 0 pyridoxine (vitamin B6) 100 MG tablet 50 mg PO DAILY@0800 RF: 0 Vitamin K2 capsule 1 tab PO DAILY RF: 0 Doxycycline 100 MG tablet 100 mg PO BID RF: 0 ascorbic acid (vitamin C) [Vitamin C] 1,000 mg Tablet 1,000 mg PO DAILY RF: 0 lisinopril 20 mg Tablet 20 mg PO DAILY RF: 0 furosemide [Lasix] 20 mg Tablet 20 mg PO DAILY PRN (Reason: swelling) RF: 0 acidophilus-pectin, citrus 1 tab PO/SL DAILY RF: 0 Referrals / Follow Up: Jaye Rodriguez MD [Primary Care Provider] - Within 1 Week Disposition Disposition (needs filled in before D/C Order can be placed): Home Health Service Charges/Coding Visit Charges Inpatient E&M: 22559 Disch Hosp
== END 2021-04-16 13:15 | disposition home health service (06) | DRG 948 ==
LOC: ED 17:35 → MS3 18:27
PROVIDERS: Admitting Provider Internal Medicine; Emergency Provider Emergency Medicine; PCP Internal Medicine; Visit Provider Family Medicine
DX: R60.0 Localized edema (principal); I10 Essential (primary) hypertension; E78.5 Hyperlipidemia, unspecified; Z79.899 Other long term (current) drug therapy; F17.210 Nicotine dependence, cigarettes, uncomplicated; M15.9 Polyosteoarthritis, unspecified; E87.6 Hypokalemia; E88.09 Other disorders of plasma-protein metabolism, not elsewhere classified; E66.01 Morbid (severe) obesity due to excess calories; Z68.30 Body mass index [BMI] 30.0-30.9, adult; G25.81 Restless legs syndrome
CPT/HCPCS: 36415; 80048; 80053; 81001; 82570; 83735; 83880; 84100; 84156; 84300; 84443; 85025; 85610; 93306; 93970; 97162; 97166; 99284; 99406; J7040; J7050; P9047; Q9957; A4216; J0295; J1940; J3490

== ENCOUNTER → 2021-05-13 | Outpatient (CLI) | payer MEDICARE, SELFPAY ==
[2021-05-13 13:46] LABS: Absolute Lymphocyte Count 1.09 X10^3/uL (0.83-4.51); Absolute Neutrophil Count 5.8 X10^3/uL (2.0-7.7); Basophil# 0.06 X10^3/uL; Basophil% 0.8 % (0-1); Eosinophil# 0.18 X10^3/uL; Eosinophils% 2.3 % (0-5); Hematocrit 30.9 % (37-47); Hemoglobin 9.8 g/dL (12.0-15.0); Lymphocyte # 1.09 X10^3/ul (0.83-4.51); Lymphocyte % 13.9 % (19-41); Mean Corp Hgb Conc 31.7 g/dL (32-36); Mean Corpuscular Hgb 31.6 pg (27.0-32.0); Mean Corpuscular Volume 99.7 fL (81-99); Mean Platelet Vol. 10.1 fl (6.2-12.0); Monocyte# 0.57 X10^3/uL; Monocyte% 7.3 % (0-10); NRBC Flagged by Analyzer 0 % (0-5); Neutrophil # 5.82 X10^3/uL (2.7-7.7); Neutrophil % 74.2 % (47-70); Platelet Count 268 K/mm3 (150-450); RBC Distribution Width CV 17.4 % (11.6-14.6); RBC Distribution Width SD 62.4 fl (35.1-43.9); White Blood Count 7.8 K/mm3 (4.4-11.0)
[2021-05-13 14:00] LABS: ALB/GLOB Ratio 0.8 RATIO (0.9-2.4); AST(SGOT) 30 U/L (15-37); Alanine Aminotransfer ALT/SGPT 39 U/L (13-56); Albumin, Serum 2.6 g/dL (3.2-5.0); Alkaline Phosphatase 126 U/L (45-117); Anion Gap 6 (5-15); BUN 33 mg/dL (7-18); BUN/Creat Ratio 35.7 RATIO (10-20); Calcium,Total 8.4 mg/dL (8.5-10.1); Chloride 112 mmol/L (98-107); Creatinine, Serum 0.92 mg/dL (0.55-1.02); EST Glomerular Filtration Rate 61 mL/min (>60); Est Glom Filt Rate - Afr Amer 74 mL/min (>60); Globulin 3.1 g/dL (2.2-4.2); Glucose 88 mg/dL (74-106); Potassium 4.2 mmol/L (3.5-5.1); Protein, Total 5.7 g/dL (6.4-8.2); Sodium Level 144 mmol/L (136-145)
== END | disposition home or self-care (01) ==
PROVIDERS: PCP Internal Medicine; Visit Provider Internal Medicine
DX: I87.313 Chronic venous hypertension (idiopathic) with ulcer of bilateral lower extremity (principal); N17.9 Acute kidney failure, unspecified
CPT/HCPCS: 80053; 85025